=== PATIENT | male | born 1955 | race Caucasian/White ===

== ENCOUNTER 2017-06-05 16:45 | Observation (INO) | payer MEDICAID, OTHER ==
[2017-06-05] MEDS ORDERED: diphenhydrAMINE 50 MG/ML 1 ML VIAL IVP STA (17:02)
[2017-06-05] MEDS ORDERED: KETOROLAC 30 MG/ML 1 ML VIAL IVP STA (17:02)
[2017-06-05] MEDS ORDERED: METOCLOPRAMIDE 5 MG/ML 2 ML VIAL IVP STA (17:02)
[2017-06-05] MEDS ORDERED: SODIUM CHLORIDE 0.9% 1,000 ML IV STA (17:02)
[2017-06-05] MEDS ORDERED: MORPHINE SULFATE 4MG/4ML SYRG IV STA (17:02)
--- NOTE | 2017-06-05 17:05 | ED ---
General Adult HPI - General Chief complaint: Chest Pain Stated complaint: chest pain Time Seen by Provider: 06/05/17 16:52 Source: patient, RN notes reviewed Mode of arrival: ambulatory Limitations: no limitations - History of Present Illness Initial comments: 61-year-old male presents for evaluation of chest pain, and headache. Patient states he's had a headache since he had his upper teeth extracted on Tuesday of this past week which is 5 days ago. Headache is both below and above his eyes. As throbbing in nature. He does have history of migraine headache. He has been taking Motrin and Weott with only some relief. Chest pain began prior to dental procedure, he's had this sharp intermittent left-sided chest pain associated with dyspnea. Patient states that he has seen his primary care physician regarding his episodes of sharp chest pain. This evening the patient developed squeezing chest pressure which was associated with diaphoresis. Patient has had several episodes of nausea and vomiting since his tooth extraction but this does not correspond in time with his chest pain. No abdominal pain. No diarrhea. Past medical history of hypertension. No lower extremity swelling or pain. - Related Data Allergies Allergy/AdvReac Type Severity Reaction Status Date / Time tetracycline Allergy Unknown Verified 06/05/17 16:51 Review of Systems ROS Statement: Those systems with pertinent positive or pertinent negative responses have been documented in the HPI. ROS Other: All systems not noted in ROS Statement are negative. Past Medical History Past Medical History: GERD/Reflux, Hypertension History of Any Multi-Drug Resistant Organisms: None Reported Past Surgical History: Tonsillectomy Additional Past Surgical History / Comment(s): oral surgery Past Psychological History: No Psychological Hx Reported Smoking Status: Former smoker Past Alcohol Use History: None Reported Past Drug Use History: Marijuana General Exam Limitations: no limitations General appearance: alert, in no apparent distress Head exam: Present: atraumatic, normocephalic Eye exam: Present: normal appearance, PERRL ENT exam: Present: other (Complete upper dental extractions, appear to be healing appropriately) Respiratory exam: Present: normal lung sounds bilaterally. Absent: respiratory distress, wheezes, chest wall tenderness Cardiovascular Exam: Present: normal rhythm, tachycardia GI/Abdominal exam: Present: soft. Absent: distended, tenderness Extremities exam: Present: normal inspection, normal capillary refill. Absent: pedal edema Back exam: Present: normal inspection, full ROM Neurological exam: Present: alert, oriented X3, CN II-XII intact. Absent: motor sensory deficit Psychiatric exam: Present: normal affect, normal mood Skin exam: Present: warm, dry, intact. Absent: cyanosis, diaphoretic Course Vital Signs 06/05/17 06/05/17 16:46 18:43 Temperature 97.5 F L Pulse Rate 119 H 88 Respiratory 20 18 Rate Blood Pressure 154/91 134/89 O2 Sat by Pulse 97 96 Oximetry EKG Findings - EKG Comments: EKG Findings:: EKG, sinus tachycardia, no ST segment elevation or depression. Ventricular rate of 107, MO interval 150, QRS duration 78, QTC 421. Medical Decision Making - Medical Decision Making 62-year-old male presenting with chief complaint of chest pain and headache. Although patient does have a headache he is much more concerned about his chest pain. States he's been having episodes of sharp chest pain for several weeks. This evening he developed a squeezing chest pressure associated with diaphoresis. This is what prompted his ER visit. EKG has nonspecific T-wave abnormality, no ST segment elevation or depression. Workup including CBC, CMP and d-dimer and troponin is negative. Patient does have significant risk factors including hypertension and tobacco use. Patient will be placed in observation for serial cardiac enzymes and cardiology evaluation. - Lab Data Result diagrams: 06/05/17 17:06 06/05/17 17:06 Lab Results 06/05/17 06/05/17 06/05/17 Range/Units 17:06 17:06 17:06 WBC 9.9 (3.8-10.6) k/uL RBC 5.48 (4.30-5.90) m/uL Hgb 15.3 (13.0-17.5) gm/dL Hct 44.8 (39.0-53.0) % MCV 81.8 (80.0-100.0) fL MCH 28.0 (25.0-35.0) pg MCHC 34.2 (31.0-37.0) g/dL RDW 13.4 (11.5-15.5) % Plt Count 354 (150-450) k/uL Neutrophils % 77 % Lymphocytes % 15 % Monocytes % 6 % Eosinophils % 0 % Basophils % 0 % Neutrophils # 7.6 (1.3-7.7) k/uL Lymphocytes # 1.5 (1.0-4.8) k/uL Monocytes # 0.6 (0-1.0) k/uL Eosinophils # 0.0 (0-0.7) k/uL Basophils # 0.0 (0-0.2) k/uL PT (9.0-12.0) sec INR (<1.2) APTT (22.0-30.0) sec D-Dimer (<0.60) mg/L FEU Sodium 143 (137-145) mmol/L Potassium 4.0 (3.5-5.1) mmol/L Chloride 100 (98-107) mmol/L Carbon Dioxide 26 (22-30) mmol/L Anion Gap 17 mmol/L BUN 10 (9-20) mg/dL Creatinine 0.70 (0.66-1.25) mg/dL Est GFR (CKD-EPI)AfAm >90 (>60 ml/min/1.73 sqM) Est GFR (CKD-EPI)NonAf >90 (>60 ml/min/1.73 sqM) Glucose 121 H (74-99) mg/dL Plasma Lactic Acid Dilip (0.7-2.0) mmol/L Calcium 10.8 H (8.4-10.2) mg/dL Magnesium 2.1 (1.6-2.3) mg/dL Total Bilirubin 0.7 (0.2-1.3) mg/dL AST 23 (17-59) U/L ALT 37 (21-72) U/L Alkaline Phosphatase 79 (38-126) U/L Total Creatine Kinase 46 L (55-170) U/L CK-MB (CK-2) 0.5 (0.0-2.4) ng/mL CK-MB (CK-2) Rel Index 1.1 Troponin I <0.012 (0.000-0.034) ng/mL NT-Pro-B Natriuret Pep pg/mL Total Protein 8.4 H (6.3-8.2) g/dL Albumin 4.7 (3.5-5.0) g/dL 06/05/17 06/05/17 06/05/17 Range/Units 17:06 17:06 17:06 WBC (3.8-10.6) k/uL RBC (4.30-5.90) m/uL Hgb (13.0-17.5) gm/dL Hct (39.0-53.0) % MCV (80.0-100.0) fL MCH (25.0-35.0) pg MCHC (31.0-37.0) g/dL RDW (11.5-15.5) % Plt Count (150-450) k/uL Neutrophils % % Lymphocytes % % Monocytes % % Eosinophils % % Basophils % % Neutrophils # (1.3-7.7) k/uL Lymphocytes # (1.0-4.8) k/uL Monocytes # (0-1.0) k/uL Eosinophils # (0-0.7) k/uL Basophils # (0-0.2) k/uL PT 9.8 (9.0-12.0) sec INR 1.0 (<1.2) APTT 23.5 (22.0-30.0) sec D-Dimer 0.49 (<0.60) mg/L FEU Sodium (137-145) mmol/L Potassium (3.5-5.1) mmol/L Chloride (98-107) mmol/L Carbon Dioxide (22-30) mmol/L Anion Gap mmol/L BUN (9-20) mg/dL Creatinine (0.66-1.25) mg/dL Est GFR (CKD-EPI)AfAm (>60 ml/min/1.73 sqM) Est GFR (CKD-EPI)NonAf (>60 ml/min/1.73 sqM) Glucose (74-99) mg/dL Plasma Lactic Acid Dilip 1.0 (0.7-2.0) mmol/L Calcium (8.4-10.2) mg/dL Magnesium (1.6-2.3) mg/dL Total Bilirubin (0.2-1.3) mg/dL AST (17-59) U/L ALT (21-72) U/L Alkaline Phosphatase (38-126) U/L Total Creatine Kinase (55-170) U/L CK-MB (CK-2) (0.0-2.4) ng/mL CK-MB (CK-2) Rel Index Troponin I (0.000-0.034) ng/mL NT-Pro-B Natriuret Pep 32 pg/mL Total Protein (6.3-8.2) g/dL Albumin (3.5-5.0) g/dL Disposition Clinical Impression: Chest pain Disposition: ADMITTED IP TO THIS [facility] Condition: Stable Referrals: Sheyla Mendenhall MD [Primary Care Provider] - 1-2 days Decision to Admit Reason: Admit from EC Decision Date: 06/05/17 Decision Time: 19:00
[2017-06-05 17:27] LABS: RBC 5.48 m/uL (4.30-5.90); WBC 9.9 k/uL (3.8-10.6)
[2017-06-05 17:28] LABS: Basophils % (A) 0 %; Eosinophils % (A) 0 %; HCT 44.8 % (39.0-53.0); HGB 15.3 gm/dL (13.0-17.5); Lymphocytes # (A) 1.5 k/uL (1.0-4.8); Lymphocytes % (A) 15 %; MCHC 34.2 g/dL (31.0-37.0); MCV 81.8 fL (80.0-100.0); Mean Platelet Volume 6.9; Monocytes # (A) 0.6 k/uL (0-1.0); Monocytes % (A) 6 %; Neutrophils # (A) 7.6 k/uL (1.3-7.7); Neutrophils % (A) 77 %; Platelet Count 354 k/uL (150-450); RDW 13.4 % (11.5-15.5)
[2017-06-05 17:37] LABS: ALT 37 U/L (21-72); AST 23 U/L (17-59); Albumin 4.7 g/dL (3.5-5.0); Alkaline Phosphatase 79 U/L (38-126); Anion Gap 17 mmol/L; Blood Urea Nitrogen 10 mg/dL (9-20); Calcium 10.8 mg/dL (8.4-10.2); Carbon Dioxide 26 mmol/L (22-30); Chloride 100 mmol/L (98-107); Glucose 121 mg/dL (74-99); Magnesium 2.1 mg/dL (1.6-2.3); Sodium 143 mmol/L (137-145); Total Bilirubin 0.7 mg/dL (0.2-1.3); Total Protein 8.4 g/dL (6.3-8.2)
[2017-06-05 17:41] LABS: D-Dimer 0.49 mg/L FEU (<0.60); Prothrombin Time 9.8 sec (9.0-12.0)
[2017-06-05 17:42] LABS: Partial Thromboplastin Time 23.5 sec (22.0-30.0)
[2017-06-05 17:47] LABS: Creatine Kinase 46 U/L (55-170)
--- NOTE | 2017-06-05 17:52 | XR ---
EXAMINATION TYPE: XR chest 2V DATE OF EXAM: 06/05/2017 COMPARISON: NONE INDICATION: Chest pain TECHNIQUE: Frontal and lateral views of the chest are obtained. FINDINGS: The heart size is normal. The pulmonary vasculature is normal. The lungs are clear. IMPRESSION: 1. No acute pulmonary process.
[2017-06-05 18:00] LABS: Creatine Kinase MB 0.5 ng/mL (0.0-2.4); Troponin I <0.012 ng/mL (0.000-0.034)
[2017-06-05] MEDS ORDERED: NALOXONE 0.4 MG/ML 1 ML VIAL IV PRN (18:54)
[2017-06-05] MEDS ORDERED: ONDANSETRON 4 MG/2 ML VIAL IVP PRN (18:54)
[2017-06-05] MEDS ORDERED: ASPIRIN 325 MG TAB PO STA (18:56)
[2017-06-05] MEDS ORDERED: NITROGLYCERIN SL TABS 0.4 MG TAB SUBLINGUAL PRN (18:57)
[2017-06-05] MEDS: SODIUM CHLORIDE 0.9% 1,000 ML IV SCH (19:22)
[2017-06-05] MEDS: amLODIPine 10 MG TAB PO SCH (20:28)
[2017-06-05] MEDS: MORPHINE SULFATE 4MG/4ML SYRG IV PRN (20:35)
[2017-06-05 21:39] VITALS: BMI 25.8
[2017-06-06 00:32] LABS: Creatine Kinase 38 U/L (55-170)
[2017-06-06 00:46] LABS: Creatine Kinase MB 0.5 ng/mL (0.0-2.4); Troponin I <0.012 ng/mL (0.000-0.034)
[2017-06-06] MEDS: MORPHINE SULFATE 4MG/4ML SYRG IV PRN ×2 (03:11→07:12)
[2017-06-06] MEDS ORDERED: BUTALB/APAP/CAFF 50-325-40MG TAB PO PRN (04:56)
--- NOTE | 2017-06-06 06:30 | CT ---
EXAM: CT Head Without Intravenous Contrast CLINICAL HISTORY: CT Reason: headache TECHNIQUE: Axial computed tomography images of the head/brain without intravenous contrast. CTDI is 57.40 mGy and DLP is 1116 mGy-cm. This CT exam was performed using one or more of the following dose reduction techniques: automated exposure control, adjustment of the mA and/or kV according to patient size, and/or use of iterative reconstruction technique. COMPARISON: No relevant prior studies available. FINDINGS: Brain: Mild cerebral atrophy noted. No hemorrhage. No significant white matter disease. Ventricles: Unremarkable. No ventriculomegaly. Bones/joints: Unremarkable. No acute fracture. Soft tissues: Unremarkable. Sinuses: A retention cyst or polyp is seen involving the inferior right maxillary sinus. Mastoid air cells: Unremarkable as visualized. No mastoid effusion. IMPRESSION: No acute intracranial process identified.
[2017-06-06 06:40] LABS: Creatine Kinase 40 U/L (55-170)
[2017-06-06 06:53] LABS: Creatine Kinase MB 0.7 ng/mL (0.0-2.4); Troponin I <0.012 ng/mL (0.000-0.034)
[2017-06-06] MEDS ORDERED: amLODIPine 10 MG TAB PO SCH (09:00)
[2017-06-06] MEDS ORDERED: ASPIRIN 325 MG TAB PO SCH (09:00)
[2017-06-06 09:40] LABS: Cholesterol 200 mg/dL (<200); HDL Cholesterol 35 mg/dL (40-60); LDL Cholesterol,Calculated 145 mg/dL (0-99); Triglycerides 102 mg/dL (<150)
[2017-06-06] MEDS ORDERED: KETOROLAC 30 MG/ML 1 ML VIAL IVP STA (09:45)
[2017-06-06] MEDS ORDERED: METOCLOPRAMIDE 5 MG/ML 2 ML VIAL IVP STA (09:46)
[2017-06-06] MEDS ORDERED: diphenhydrAMINE 50 MG/ML 1 ML VIAL IVP ONE (09:47)
[2017-06-06] MEDS: amLODIPine 10 MG TAB PO SCH (11:45)
[2017-06-06] MEDS: ASPIRIN 81 MG PO SCH (11:45)
--- NOTE | 2017-06-06 12:11 | P.CRDCN ---
History of Present Illness Consult date: 06/06/17 History of present illness: Mr. Ash is a pleasant 62-year-old male past medical history significant for gastroesophageal reflux disease, hypertension, regular marijuana use and former cigar smoker. He quit 3 months ago. He denies history of coronary artery disease and has never seen a anodize machine operator for any reason. We have been asked to see him in consultation for complaints of chest pain. This all started 3-weeks ago. He went to his PCP with a tight sensation in the left precordial regions and was diagnosed with new onset hypertension with GERD and was started on amlodipine and omeprazole. At that time he denies associated symptoms of shortness of breath, dizziness, palpitations, nausea, vomiting or diaphoresis and had no radiation of the pain. He states he went back multiple times to recheck his blood pressure and it seemed to be under control. He had no reoccurrence of the chest pain either. Last week Tuesday he underwent 13 teeth extractions at an oral surgeon's office. In his recovery he was having frequent headaches and again started feeling a heavy pressure sensation in his chest similar to how he felt prior to starting amlodipine. The pain was intermittent in nature not associated with exertion came on mostly at rest and again he had no associated symptoms or radiation of the pain. However, Tuesday evening he started feeling heavy sensation in his chest again and became extremely diaphoretic with numbness and tingling down the left arm. He denies associated shortness of breath, palpitations, dizziness, nausea or vomiting. These symptoms persisted until he arrived in the ED and received medication to relieve his ongoing headache which included reglan, toradol and benadryl. The medications also relieved his chest pain. He has had no further symptoms of chest pain since admission and telemetry tracings have been unremarkable. EKG on arrival reveals sinus mechanism with non-specific T-wave abnormalities. There is no old for comparison. Chest xray is negative for an acute cardiopulmonary process. Laboratory data reviewed, hemoglobin 15.3, platelets 354, d-dimer 0.49, potassium 4.0, magnesium 2.1, creatinine 0.7, cardiac enzymes negative 3 , LDL 145, HDL 35, total cholesterol 200. Current cardiac medications include amlodipine 10 mg daily. Review of Systems At the time of my exam: CONSTITUTIONAL: Denies fever. Denies chills. EYES: Denies blurred vision. Denies vision changes. Denies eye pain. EARS, NOSE, MOUTH & THROAT: Complains of headache. Denies sore throat. Denies ear pain. Complains of mouth pain secondary to tooth extraction. CARDIOVASCULAR: Denies chest pain. Denies shortness of breath. Denies orthopnea. Denies PND. Denies palpitations. RESPIRATORY: Denies cough. GASTROINTESTINAL: Denies abdominal pain. Denies diarrhea. Denies constipation. Denies nausea. Denies vomiting. MUSCULOSKELETAL: Denies myalgias. INTEGUMENTARY: Denies pruitis. Denies rash. NEUROLOGIC: Denies numbness. Denies tingling. Denies weakness. PSYCHIATRIC: Denies anxiety. Denies depression. ENDOCRINE: Denies fatigue. Denies weight change. Denies polydipsia. Denies polyurina. GENITOURINARY: Denies burning, hematuria or urgency with micturation. HEMATOLOGIC: Denies history of anemia. Denies bleeding. Past Medical History Past Medical History: GERD/Reflux, Hypertension Additional Past Medical History / Comment(s): kidney disease History of Any Multi-Drug Resistant Organisms: None Reported Past Surgical History: Tonsillectomy Additional Past Surgical History / Comment(s): oral surgery Past Anesthesia/Blood Transfusion Reactions: No Reported Reaction Smoking Status: Former smoker - Past Family History Father Family Medical History: Unable to Obtain Mother Additional Family Medical History / Comment(s): Cerebral Palsey Medications and Allergies Home Medications Medication Instructions Recorded Confirmed Type Ibuprofen [Motrin] 600 mg PO Q6HR 06/05/17 06/06/17 History Methocarbamol [Robaxin-750] 750 - 1,500 mg PO TID PRN 06/05/17 06/06/17 History Omeprazole [PriLOSEC] 20 mg PO AC-BID 06/05/17 06/06/17 History amLODIPine BESYLATE [Norvasc] 10 mg PO HS 06/05/17 06/06/17 History Aspirin/Acetaminophen/Caffeine 1 - 2 tab PO DAILY PRN 06/06/17 06/06/17 History [Excedrin Migraine Caplet] Allergies Allergy/AdvReac Type Severity Reaction Status Date / Time tetracycline Allergy Unknown Verified 06/06/17 08:23 hydrocodone [From [place]] AdvReac Nausea & Verified 06/06/17 08:23 Vomiting Physical Exam Vitals: Vital Signs Temp Pulse Pulse Resp BP BP Pulse Ox 06/06/17 07:43 98.3 F 78 18 135/86 94 L 06/06/17 03:36 97.9 F 87 18 149/95 95 06/05/17 23:31 18 06/05/17 23:29 98.8 F 87 18 132/84 93 L 06/05/17 20:00 98.1 F 84 18 139/92 95 06/05/17 19:25 97.9 F 90 16 128/95 96 06/05/17 18:43 88 18 134/89 96 06/05/17 16:46 97.5 F L 119 H 20 154/91 97 Intake and Output 06/05/17 06/06/17 06/06/17 22:59 06:59 14:59 Other: # Voids 1 1 Weight 77.1 kg Blood pressure 135/86 heart rate 78 afebrile maintaining oxygen saturation on room air GENERAL: This is a 62-year-old male in no apparent distress at the time of my examination. HEENT: Head is atraumatic, normocephalic. Pupils are equal, round. Sclerae anicteric. Conjunctivae are clear. Mucous membranes of the mouth are moist. Neck is supple. There is no jugular venous distention. No carotid bruit is heard. LUNGS: Clear to auscultation no wheezes, rales or rhonchi. No chest wall tenderness is noted on palpation or with deep breathing. HEART: Regular rate and rhythm without murmurs, rubs or gallops. S1 and S2 heard. ABDOMEN: Soft, nontender. Bowel sounds are heard. No organomegaly noted. EXTREMITIES: No evidence of peripheral edema and no calf tenderness noted. VASCULAR: Radial and dorsalis pedis pulses palpated, no evidence of clubbing. NEUROLOGIC: Patient is awake, alert and oriented x3. Results 06/05/17 17:06 06/05/17 17:06 Cardiac Enzymes 06/05/17 06/05/17 06/05/17 Range/Units 17:06 17:06 23:22 AST 23 (17-59) U/L CK-MB (CK-2) 0.5 0.5 (0.0-2.4) ng/mL Troponin I <0.012 <0.012 (0.000-0.034) ng/mL 06/06/17 Range/Units 05:26 AST (17-59) U/L CK-MB (CK-2) 0.7 (0.0-2.4) ng/mL Troponin I <0.012 (0.000-0.034) ng/mL Coagulation 06/05/17 Range/Units 17:06 PT 9.8 (9.0-12.0) sec APTT 23.5 (22.0-30.0) sec CBC 06/05/17 Range/Units 17:06 WBC 9.9 (3.8-10.6) k/uL RBC 5.48 (4.30-5.90) m/uL Hgb 15.3 (13.0-17.5) gm/dL Hct 44.8 (39.0-53.0) % Plt Count 354 (150-450) k/uL Comprehensive Metabolic Panel 06/05/17 Range/Units 17:06 Sodium 143 (137-145) mmol/L Potassium 4.0 (3.5-5.1) mmol/L Chloride 100 (98-107) mmol/L Carbon Dioxide 26 (22-30) mmol/L BUN 10 (9-20) mg/dL Creatinine 0.70 (0.66-1.25) mg/dL Glucose 121 H (74-99) mg/dL Calcium 10.8 H (8.4-10.2) mg/dL AST 23 (17-59) U/L ALT 37 (21-72) U/L Alkaline Phosphatase 79 (38-126) U/L Total Protein 8.4 H (6.3-8.2) g/dL Albumin 4.7 (3.5-5.0) g/dL Current Medications Generic Name Dose Route Start Last Admin Trade Name Freq PRN Reason Stop Dose Admin Acetaminophen/Butalbital/Caffeine 1 each 06/06/17 04:56 06/06/17 05:05 Fioricet 50-325-40 PO 1 each Q4HR PRN Administration Headache Amlodipine Besylate 10 mg 06/05/17 21:00 06/05/17 20:28 Norvasc PO 10 mg DAILY MARIA T Administration Aspirin 81 mg 06/06/17 09:00 Aspirin PO DAILY MARIA T Sodium Chloride 1,000 mls @ 20 mls/hr 06/05/17 19:00 06/05/17 19:22 Saline 0.9% IV 20 mls/hr .Q24H MARIA T Administration Morphine Sulfate 4 mg 06/05/17 18:54 06/06/17 07:12 Morphine Sulfate (Inj) IV 4 mg Q4HR PRN Administration Severe Pain Naloxone HCl 0.2 mg 06/05/17 18:54 Narcan IV Q2M PRN Opioid Reversal Nitroglycerin 0.4 mg 06/05/17 18:57 Nitrostat SUBLINGUAL Q5M PRN Chest Pain Ondansetron HCl 4 mg 06/05/17 18:54 06/06/17 05:05 Zofran IVP 4 mg Q8HR PRN Administration Nausea And Vomiting Intake and Output 06/05/17 06/06/17 06/06/17 22:59 06:59 14:59 Other: # Voids 1 1 Weight 77.1 kg 06/05/17 17:06 06/05/17 17:06 Assessment and Plan Assessment: ASSESSMENT 1. Chest pain, atypical. An acute coronary event has been ruled out with negative cardiac enzymes and no acute EKG changes indicative of ischemia. 2. Hypertension 3. Recent history of tobacco use, quit 3 months ago 4. Regular marijuana use 5. Dyslipidemia, new diagnosis. ASCVD risk of 22.5% PLAN Obtain 2D echocardigram and doppler study to assess cardiac structure and function. Perform stress echocadriogram to assess for stress induced cardiac ischemia. Initiate on aspirin 81 mg daily and atorvastatin 40 mg daily. Further recommendations to follow based upon stress test findings. If normal he is stable from a cardiac perspective. Thank you kindly for this consultation. Nurse Practitioner note has been reviewed, I agree with a documented findings and plan of care. Patient was seen and examined.
[2017-06-06] MEDS ORDERED: MORPHINE ORAL SOLN 10 MG/5 ML CUP PO PRN (13:40)
[2017-06-06] MEDS ORDERED: KETOROLAC 30 MG/ML 1 ML VIAL IVP PRN (14:25)
--- NOTE | 2017-06-06 14:28 | P.HPIM ---
History of Present Illness H&P Date: 06/06/17 Chief Complaint: Chest pain and headache This is a 62-year-old male, patient of Dr. Mendenhall. He has a known past medical history of hypertension, headaches, acid reflux and former cigar smoker and regular marijuana use. He recently had 13 teeth pulled this past Tuesday. He reports that even before he had his teeth pulled he had been having episodes of chest pain. The chest pain has been intermittent for the past 2 weeks. He went to see his family doctor and was told that his EKG was fine and that he can proceed with his dental work. Tuesday he had his teeth pulled. Then the chest pains started again. Yesterday patient started to have severe left-sided chest pain that moved into the left shoulder. The arm became tingly and he had cold sweats. He became concerned in regards to this chest pain and even during this time he was complaining of severe headaches where his eyes felt like they would pop out. He also had pressure in the front of his head. He came to the emergency room for further evaluation in regards to this chest pain. Troponins were negative 3 sets. EKG showed sinus tachycardia with a heart rate of 107 and nonspecific T-wave abnormality. D-dimer was negative. Cardiology consulted they ordered a stress echo and those results are pending. He also had computed tomography scan of the brain which was negative. Patient had been on antibiotics prior to his dental procedure. Been now he is remained off antibiotics. He does have some swelling of the gums no pus or abscess noted. But he does have tenderness with palpation of the upper lip and gum area. Patient denies any vision changes. He does admit to some nausea but no vomiting. No fever reported. Denies any cough. Denies any bowel movement changes or urinary symptoms. No history of heart attacks. And no previous stress test or heart catheterization's. Patient also reported a couple minutes syncopal episode yesterday when he was having these headaches and chest pain. Review of Systems Please refer to HPI otherwise unremarkable Past Medical History Past Medical History: GERD/Reflux, Hypertension Additional Past Medical History / Comment(s): kidney disease History of Any Multi-Drug Resistant Organisms: None Reported Past Surgical History: Tonsillectomy Additional Past Surgical History / Comment(s): oral surgery Past Anesthesia/Blood Transfusion Reactions: No Reported Reaction Smoking Status: Former smoker - Past Family History Father Family Medical History: Unable to Obtain Mother Additional Family Medical History / Comment(s): Cerebral Palsey Medications and Allergies Home Medications Medication Instructions Recorded Confirmed Type Ibuprofen [Motrin] 600 mg PO Q6HR 06/05/17 06/06/17 History Methocarbamol [Robaxin-750] 750 - 1,500 mg PO TID PRN 06/05/17 06/06/17 History Omeprazole [PriLOSEC] 20 mg PO AC-BID 06/05/17 06/06/17 History amLODIPine BESYLATE [Norvasc] 10 mg PO HS 06/05/17 06/06/17 History Aspirin/Acetaminophen/Caffeine 1 - 2 tab PO DAILY PRN 06/06/17 06/06/17 History [Excedrin Migraine Caplet] Allergies Allergy/AdvReac Type Severity Reaction Status Date / Time tetracycline Allergy Unknown Verified 06/06/17 08:23 hydrocodone [From [place]] AdvReac Nausea & Verified 06/06/17 08:23 Vomiting Physical Exam Vitals: Vital Signs Temp Pulse Pulse Resp BP BP Pulse Ox 06/06/17 11:51 98.0 F 98 18 131/90 96 06/06/17 07:43 98.3 F 78 18 135/86 94 L 06/06/17 03:36 97.9 F 87 18 149/95 95 06/05/17 23:31 18 06/05/17 23:29 98.8 F 87 18 132/84 93 L 06/05/17 20:00 98.1 F 84 18 139/92 95 06/05/17 19:25 97.9 F 90 16 128/95 96 06/05/17 18:43 88 18 134/89 96 06/05/17 16:46 97.5 F L 119 H 20 154/91 97 Intake and Output 06/05/17 06/06/17 06/06/17 22:59 06:59 14:59 Intake Total 340 Balance 340 Intake: Oral 240 Other 100 Other: Voiding Method Toilet # Voids 1 1 Weight 77.1 kg Mouth: Patient's upper gums are all swollen. Tender with palpation. No drainage or abscess noted. There are sutures in place. Also tenderness with palpation of the upper lip. And into the cheeks and sinus area. Head normocephalic Neck supple Lungs clear to auscultation bilaterally no wheezing or crackles Heart regular rate and rhythm S1-S2, no rub or gallop Abdomen is soft nontender nondistended positive bowel sounds no hepatosplenomegaly Extremities no edema Neuro alert and orientated to 3 Results CBC & Chem 7: 06/05/17 17:06 06/05/17 17:06 Labs: Abnormal Lab Results - Last 24 Hours (Table) 06/05/17 06/05/17 06/05/17 Range/Units 17:06 17:06 23:22 Glucose 121 H (74-99) mg/dL Calcium 10.8 H (8.4-10.2) mg/dL Total Creatine Kinase 46 L 38 L (55-170) U/L Total Protein 8.4 H (6.3-8.2) g/dL Cholesterol (<200) mg/dL LDL Cholesterol, Calc (0-99) mg/dL HDL Cholesterol (40-60) mg/dL 06/06/17 06/06/17 Range/Units 05:26 05:26 Glucose (74-99) mg/dL Calcium (8.4-10.2) mg/dL Total Creatine Kinase 40 L (55-170) U/L Total Protein (6.3-8.2) g/dL Cholesterol 200 H (<200) mg/dL LDL Cholesterol, Calc 145 H (0-99) mg/dL HDL Cholesterol 35 L (40-60) mg/dL Thrombosis Risk Factor Assmnt - Choose All That Apply Each Risk Factor Represents 2 Points: Age 61-74 years Thrombosis Risk Factor Assessment Total Risk Factor Score: 2 Thrombosis Risk Factor Assessment Level: Low Risk Assessment and Plan Assessment: 1. Chest pain: Acute coronary syndrome ruled out. Troponins negative 3 sets. EKG showing sinus tachycardia with a heart rate of 107. D-dimer negative. Patient seen by cardiology. Stress echo pending. Cardiology did add a baby aspirin and Lipitor. LDL 145 HDL 35 2. Headaches with nausea and photophobia. Possible migraine headache. Computed tomography scan of the brain negative. Neurology consulted. Also headaches could be related to his recent dental procedure. Place patient on Toradol 3. Gingivitis with 13 teeth removed. Start Rocephin 4. Syncopal episode: Neurology and cardiology following. Awaiting echo results also will check a carotid Doppler 5. Essential hypertension 6. Acid reflux 7. History of headaches GI prophylaxis Protonix and DVT prophylaxis subcu heparin Time with Patient: Greater than 30 (Greater than 50% of the total time spent in counseling and coordination of care. I performed an examination of the patient and discussed their management with the physician Mental Health Therapist. I have reviewed the Physician Mental Health Therapist's notes and agree with the documented findings and plan of care)
--- NOTE | 2017-06-06 15:23 | US ---
EXAMINATION TYPE: US carotid duplex BILAT DATE OF EXAM: 06/06/2017 COMPARISON: NONE CLINICAL HISTORY: syncope. Pt states extreme headaches EXAM MEASUREMENTS: RIGHT: Peak Systolic Velocity (PSV) cm/sec ----- Right CCA: 81.1 ----- Right ICA: 87.7 ----- Right ECA: 105.7 ICA/CCA ratio: 1.1 RIGHT: End Diastole cm/sec ----- Right CCA: 27.1 ----- Right ICA: 37.0 ----- Right ECA: 26.7 LEFT: Peak Systolic Velocity (PSV) cm/sec ----- Left CCA: 93.2 ----- Left ICA: 79.1 ----- Left ECA: 82.2 ICA/CCA ratio: 0.8 LEFT: End Diastole cm/sec ----- Left CCA: 28.2 ----- Left ICA: 28.5 ----- Left ECA: 19.4 VERTEBRALS (direction of flow): Right Vertebral: Antegrade Left Vertebral: Antegrade Rhythm: Normal IMPRESSION: No significant stenosis seen Criteria for Assigning % of Stenosis / Diameter reduction (Estimation based on the indirect measurements of the internal carotid artery velocities (ICA PSV). 1. Normal (no stenosis)=ICA PSV < 125 cm/s: ratio < 2.0: ICA EDV<40 cm/s. 2. Less than 50% stenosis=ICA PSV < 125 cm/s: ratio < 2.0: ICA EDV<40 cm/s. 3. 50 to 69% stenosis=ICA PSV of 125 to 230 cm/s: ration 2.0 ? 4.0: ICA EDV 40-100 cm/s. 4. Greater than 70% stenosis to near occlusion= ICA PSV > 230 cm/s: ratio > 4.0: ICA EDV > 100 cm/s. 5. Near occlusion= ICA PSV velocities may be low or undetectable: variable ratio and ICA EDV. 6. Total occlusion=unable to detect flow.
[2017-06-06] MEDS: ATORVASTATIN 40 MG TAB PO SCH (15:27)
[2017-06-06] MEDS: cefTRIAXone IN SWFI 1,000 MG/10 ML SYRINGE IVP SCH (15:29)
--- NOTE | 2017-06-06 16:51 | ECHOS ---
STRESS ECHOCARDIOGRAM INDICATIONS: Chest pain. History of chest discomfort. MEDICATIONS: BASELINE HEART RATE: 103 BASELINE BLOOD PRESSURE: 153/69 MAXIMUM HEART RATE: 142 MAXIMUM BLOOD PRESSURE: 157/78 85% MPHR: 133 100% MPHR: 157 METS: 8.5 MAXIMUM STAGE REACHED: 3 TOTAL EXERCISE TIME: 7:00 CLINICAL INFORMATION: Baseline heart rate 103 beats per minute. Baseline blood pressure 153/69 mmHg. Baseline 12-lead ECG showed normal sinus rhythm with nonspecific ST-T abnormalities. The patient exercised on Gokul protocol for 7 minutes, achieving a peak heart rate of 142 beats per minute. Normal blood pressure response to exercise. There was no ECG evidence for ischemia. No exercise-induced arrhythmias. The baseline 2D echo images showed normal LV size and systolic function without segmental wall motion abnormalities. At peak exercise, there was excellent augmentation of overall LV contractility without development of any wall motion abnormalities. At recovery, patient's global LV systolic function remained normal. IMPRESSION: No ECG or echocardiographic evidence for ischemia. MMODL / IJN: [id number] /
[2017-06-06] MEDS: PANTOPRAZOLE 40 MG TABLET PO SCH (17:40)
--- NOTE | 2017-06-06 18:41 | ECHOF ---
Referral Reason: MEASUREMENTS -------- HEIGHT: 172.7 cm WEIGHT: 76.7 kg BP: 135/86 IVSd: 1.1 cm (0.6 - 1.1) LVIDd: 4.8 cm (3.9 - 5.3) LVPWd: 1.0 cm (0.6 - 1.1) IVSs: 1.4 cm LVIDs: 3.6 cm LVPWs: 1.4 cm RVIDd: 2.8 cm (< 3.3) LAESV Index (A-L): 14.82 ml/m Ao Diam: 3.2 cm (2.0 - 3.7) LA Diam: 2.2 cm (2.7 - 3.8) AV Cusp: 2.1 cm (1.5 - 2.6) EPSS: 0.7 cm MV E Oscar: 0.62 m/s MV DecT: 348 ms MV A Oscar: 1.02 m/s MV E/A Ratio: 0.60 RAP: 5.00 mmHg RVSP: 25.71 mmHg MV EF SLOPE: 67.07 mm/s (70 - 150) MV EXCURSION: 1.14 cm (> 18.000) FINDINGS -------- Sinus rhythm. This was a technically adequate study. The left ventricular size is normal. There is borderline concentric left ventricular hypertrophy. Overall left ventricular systolic function is normal with, an EF between 55 - 60 %. The right ventricle is normal in size and function. Normal LA size by volume 22+/-6 ml/m2. The right atrium is normal in size. Aortic valve is trileaflet and is mildly thickened. There is no evidence of aortic regurgitation. There is no evidence of aortic stenosis. The mitral valve leaflets are mildly thickened. Mild mitral regurgitation is present. Trace tricuspid regurgitation present. Right ventricular systolic pressure is normal at < 35 mmHg. There is no evidence of pulmonary hypertension. Trace/mild (physiologic) pulmonic regurgitation. The aortic root size is normal. Normal inferior vena cava with normal inspiratory collapse consistent with estimated right atrial pre ssure of 5 mmHg. There is no pericardial effusion. CONCLUSIONS -------- 1. Sinus rhythm. 2. This was a technically adequate study. 3. The left ventricular size is normal. 4. There is borderline concentric left ventricular hypertrophy. 5. Overall left ventricular systolic function is normal with, an EF between 55 - 60 %. 6. Normal LA size by volume 22+/-6 ml/m2. 7. Aortic valve is trileaflet and is mildly thickened. 8. The mitral valve leaflets are mildly thickened. 9. Mild mitral regurgitation is present. 10. Trace tricuspid regurgitation present. 11. Right ventricular systolic pressure is normal at < 35 mmHg. 12. There is no evidence of pulmonary hypertension. 13. Trace/mild (physiologic) pulmonic regurgitation. 14. The aortic root size is normal. 15. There is no pericardial effusion. APPLICATION INTEGRATION ENGINEER: Cayden Ga RDCS
[2017-06-06] MEDS: SODIUM CHLORIDE 0.9% 1,000 ML IV SCH (20:20)
[2017-06-06] MEDS ORDERED: MAGNESIUM SULFATE-D5W PMX 1 GM in DEXTROSE/WATER 1 100ML.BAG IVPB ONE (20:30)
[2017-06-06] MEDS ORDERED: VALPROATE SODIUM 1,000 MG in SODIUM CHLORIDE 0.9% 50 ML IVPB ONE (20:30)
[2017-06-06] MEDS: HEPARIN SODIUM,PORCINE 5,000 UNIT/ML 1 ML VIAL SQ SCH (20:46)
--- NOTE | 2017-06-06 21:12 | CONS ---
CONSULTATION DATE OF CONSULTATION: 06/06/2017. CHIEF COMPLAINT: Headache. HISTORY OF PRESENT ILLNESS: The patient is a pleasant 62-year-old, male, who is being evaluated by the neurology service per the request of Dr. Carrero for an intractable headache. The patient states that he has history of frequent headaches. He started having headaches during his teenage years and they have been progressively getting worse. He states he had a significant workup back in the 1980s which was normal according to him. He has not been worked up for this since then. He states that he has. At least 20 days per month of a headache. The headaches are usually in the right frontal temporal or the left temporoparietal region and are usually described as a pressure and throbbing pain. He started having this current headache approximately 3 days ago and it has not resolved. He usually takes over the counter analgesics for the headaches. At the time of my evaluation, he states that the headache is in the right frontal temporal region and is still throbbing and he rates it at 8/10 in intensity. He denies any nausea or vomiting at this time. But he frequently does have nausea with the headaches. He denies any recent head injuries or fevers. A CT scan of the brain was done, which showed small-vessel ischemic changes and generalized atrophy. His CBC, D-dimer , and cardiac enzymes were negative. His comprehensive metabolic profile was normal except for mild hypercalcemia at 10.8. He was complaining of chest pain earlier and cardiology has been consulted. His cardiac enzymes have been negative. His fasting lipid panel did show dyslipidemia with an LDL of 145. His HDL was low at 35. He was started on Lipitor on this admission. PAST MEDICAL HISTORY: Hypertension, migraines, gastroesophageal reflux disease, history of tonsillectomy, history of recent oral surgery. SOCIAL HISTORY: The patient is a former smoker. He denies any alcohol or drug use. FAMILY HISTORY: Noncontributory. HOME MEDICATIONS: Reviewed in the chart. ALLERGIES: NORCO AND TETRACYCLINES. REVIEW OF SYSTEMS: CONSTITUTIONAL: Negative. EYES: Negative. ENT: Recent oral surgery with multiple tooth extractions. Neck negative. CARDIOVASCULAR: As mentioned above. RESPIRATORY: Negative. NEUROLOGICAL: As mentioned above. He denies any lateralizing numbness or weakness. GASTROINTESTINAL: Positive for occasional heartburn. GENITOURINARY: Negative. PSYCHIATRIC: Negative. ENDOCRINE: Negative. MUSCULOSKELETAL: Negative. DERMATOLOGICAL: Negative. PHYSICAL EXAM: Vital signs show a temperature of 98.2, pulse 79, respiration 18, blood pressure 110/75. GENERAL APPEARANCE: The patient is a well-developed male who appears to be in no acute distress. HEENT: Normocephalic, atraumatic, no facial asymmetry is seen. NECK: Supple with no masses felt. CARDIOVASCULAR: Regular rate and rhythm. ABDOMEN: Nontender, nondistended. Extremities showed no edema or clubbing. Neurological exam: The patient is alert aware and oriented x3. Speech and language are normal. Strength is full in all 4 extremities. Sensory exam was normal to light touch in all 4 extremities. No facial asymmetry is seen on cranial nerve testing. No tremors or seizure-like activity is seen. IMPRESSION: 1. Status migrainosus. 2. Chronic migraines. 3. Dyslipidemia. 4. Atypical chest pain. RECOMMENDATION: The patient has had an intractable migraine for several days consistent with status migrainosus. Had a lengthy discussion with the patient regarding his current workup findings which showed no significant abnormalities. I had a lengthy discussion with the treatment options. I will start him on IV Solu-Medrol 250 mg every 8 hours , Reglan 10 mg q.6 hours around the clock, Mag sulfate 1 g IV, and Depakote 1000 mg IV. I will also start him on oral Depakote 500 mg every 8 hours for headache prophylaxis and he should continue on this after his discharge. I do agree with statin therapy for his dyslipidemia. As for his chest pain, his cardiac enzymes were negative and Cardiology has been consulted. Continue the rest of your current workup and management. I will continue to follow with you. Further recommendations to follow. Thank you for allowing me to participate in the care of your patient. If you have any questions, please feel free to contact me. ELIZABETHL / IJN: [id number] / SHAHZAD
[2017-06-06] MEDS: METOCLOPRAMIDE 5 MG/ML 2 ML VIAL IVP SCH ×2 (21:28→23:47)
[2017-06-07 06:54] LABS: Basophils % (A) 0 %; Eosinophils % (A) 0 %; HGB 13.8 gm/dL (13.0-17.5); Lymphocytes # (A) 0.8 k/uL (1.0-4.8); Lymphocytes % (A) 13 %; MCH 28.1 pg (25.0-35.0); MCHC 33.5 g/dL (31.0-37.0); MCV 83.9 fL (80.0-100.0); Mean Platelet Volume 6.5; Monocytes # (A) 0.1 k/uL (0-1.0); Monocytes % (A) 1 %; Neutrophils # (A) 4.9 k/uL (1.3-7.7); Neutrophils % (A) 85 %; Platelet Count 356 k/uL (150-450); RBC 4.89 m/uL (4.30-5.90); RDW 13.5 % (11.5-15.5); WBC 5.8 k/uL (3.8-10.6)
[2017-06-07 07:30] LABS: ALT 33 U/L (21-72); AST 19 U/L (17-59); Albumin 4.1 g/dL (3.5-5.0); Alkaline Phosphatase 65 U/L (38-126); Anion Gap 16 mmol/L; Blood Urea Nitrogen 20 mg/dL (9-20); Calcium 9.6 mg/dL (8.4-10.2); Carbon Dioxide 23 mmol/L (22-30); Chloride 102 mmol/L (98-107); Glucose 149 mg/dL (74-99); Sodium 141 mmol/L (137-145); Total Bilirubin 0.9 mg/dL (0.2-1.3); Total Protein 7.1 g/dL (6.3-8.2)
[2017-06-07 08:09] VITALS: RESP 18
[2017-06-07] MEDS: ASPIRIN 81 MG PO SCH (08:25)
[2017-06-07] MEDS: PANTOPRAZOLE 40 MG TABLET PO SCH (08:25)
[2017-06-07] MEDS: HEPARIN SODIUM,PORCINE 5,000 UNIT/ML 1 ML VIAL SQ SCH (08:26)
[2017-06-07] MEDS: amLODIPine 10 MG TAB PO SCH (08:26)
[2017-06-07] MEDS: ATORVASTATIN 40 MG TAB PO SCH (08:26)
[2017-06-07] MEDS: METOCLOPRAMIDE 5 MG/ML 2 ML VIAL IVP SCH (08:26)
[2017-06-07] MEDS: cefTRIAXone IN SWFI 1,000 MG/10 ML SYRINGE IVP SCH (08:32)
[2017-06-07] MEDS ORDERED: DIVALPROEX 500 MG TABLET.DR PO SCH (09:00)
[2017-06-07 11:54] VITALS: BP 96/64; PULSE 83; TEMP 98.5
--- NOTE | 2017-06-07 13:08 | P.DS ---
Providers Date of admission: 06/05/17 18:54 Expected date of discharge: 06/07/17 Attending physician: Anya Carrero Consults: 06/05/17 18:55 Consult Physician Routine Consulting Provider: Joe Soliz Consult Reason/Comments: CP Do you want consulting provider notified?: Yes 06/06/17 09:32 Consult Physician Routine Consulting Provider: Wagner Moreira Consult Reason/Comments: intractable headache Do you want consulting provider notified?: Yes Primary care physician: Sheyla Mendenhall [facility] Course: 1. Chest pain: Acute coronary syndrome ruled out. Troponins negative 3 sets. EKG showing sinus tachycardia with no acute ischemic changes. D-dimer negative. Patient seen by cardiology. Stress echo was negative. 2. Acute migraine attack: With Headaches with nausea and photophobia. Seen and evaluated by neurology. Given 3 doses of IV Solu-Medrol and one dose of IV Depakote. Plan to continue Depakote by mouth to finish antibiotic course with Augmentin 500 every 8 hours. Follow up with neurology. 3. Gingivitis with 13 teeth removed. 4. Essential hypertension 5. Acid reflux Patient Condition at Discharge: Stable Plan - Discharge Summary New Discharge Prescriptions: New Amoxic-Pot Clav 875-125Mg [Augmentin 875-125] 1 tab PO Q12HR #10 tablet Atorvastatin [Lipitor] 40 mg PO DAILY #30 tab Divalproex [Depakote] 500 mg PO TID #60 tablet.dr Continue Omeprazole [PriLOSEC] 20 mg PO AC-BID amLODIPine BESYLATE [Norvasc] 10 mg PO HS Ibuprofen [Motrin] 600 mg PO Q6HR Methocarbamol [Robaxin-750] 750 - 1,500 mg PO TID PRN PRN Reason: Muscle Spasm Aspirin/Acetaminophen/Caffeine [Excedrin Migraine Caplet] 1 - 2 tab PO DAILY PRN PRN Reason: Migraine Headache Discharge Medication List Ibuprofen [Motrin] 600 mg PO Q6HR 06/05/17 [History] Methocarbamol [Robaxin-750] 750 - 1,500 mg PO TID PRN 06/05/17 [History] Omeprazole [PriLOSEC] 20 mg PO AC-BID 06/05/17 [History] amLODIPine BESYLATE [Norvasc] 10 mg PO HS 06/05/17 [History] Aspirin/Acetaminophen/Caffeine [Excedrin Migraine Caplet] 1 - 2 tab PO DAILY PRN 06/06/17 [History] Amoxic-Pot Clav 875-125Mg [Augmentin 875-125] 1 tab PO Q12HR #10 tablet [Rx] Atorvastatin [Lipitor] 40 mg PO DAILY #30 tab 06/07/17 [Rx] Divalproex [Depakote] 500 mg PO TID #60 tablet. 06/07/17 [Rx] Follow up Appointment(s)/Referral(s): Vicente Barnes MD [STAFF PHYSICIAN] - 1 Week Sheyla Mendenhall MD [Primary Care Provider] - 3 Days Wagner Moreira MD [STAFF PHYSICIAN] - 1 Week Discharge Disposition: HOME SELF-CARE
== END 2017-06-07 14:22 | disposition home or self-care (01) ==
LOC: EC 16:45 → 3OBS 18:54
PROVIDERS: ADMIT Internal Medicine; ATTEND Internal Medicine
DX: R07.89 Other chest pain (principal); G43.911 Migraine, unspecified, intractable, with status migrainosus; I10 Essential (primary) hypertension; E78.5 Hyperlipidemia, unspecified; K21.9 Gastro-esophageal reflux disease without esophagitis; K05.10 Chronic gingivitis, plaque induced; E83.52 Hypercalcemia; F12.90 Cannabis use, unspecified, uncomplicated; Z98.818 Other dental procedure status; R55 Syncope and collapse; R61 Generalized hyperhidrosis; R20.0 Anesthesia of skin; R20.2 Paresthesia of skin; Z79.899 Other long term (current) drug therapy; Z88.5 Allergy status to narcotic agent; Z87.891 Personal history of nicotine dependence
CPT/HCPCS: 99285 ×2; 96375 ×6; 96361 ×2; 96365; 96366; 96367; 96372 ×2; 96376 ×3; 36415; 93005; 93017; 93306; 93350; 85379; 83880; 80061; 80053 ×2; 82550 ×2; 82553 ×2; 83605; 83735; 84484 ×2; 85025 ×2; 85610; 85730; 87040; 71046; 93880; 70450; G0378 ×3; J1200 ×2; J1644 ×2; J2765 ×3; J2405; J2930 ×2; J0696 ×2; J1885 ×2; J3475; J2270 ×2

== ENCOUNTER → 2017-07-04 | Outpatient (CLI) | payer OTHER ==
--- NOTE | 2017-07-04 11:26 | XR ---
EXAMINATION TYPE: XR orbit detect foreign body DATE OF EXAM: 07/04/2017 COMPARISON: NONE HISTORY: Work with metal in the past, pre-MRI clearance. TECHNIQUE: Complete orbital series with Franco and Rashel frontal view and lateral view obtained. FINDINGS: No metallic intraorbital foreign body is seen to prevent MRI study. IMPRESSION: As above
--- NOTE | 2017-07-04 22:12 | MR ---
EXAMINATION TYPE: MR brain wo con DATE OF EXAM: 07/04/2017 COMPARISON: NONE HISTORY: 62-year-old male Migraine without aura and status migrainosus. TECHNIQUE: Multiplanar, multisequence images of the brain and brainstem were acquired without IV con trast. Diffusion weighted imaging is performed. FINDINGS: No evidence for acute infarction, hemorrhage, mass, mass effect, midline shift, herniation, effacemen t of basal cisterns, or extra-axial fluid collection. The ventricles and sulci are age-appropriate with mild generalized supratentorial volume loss. Major intracranial flow voids are intact. T2/FLAIR weighted sequences show mild scattered burden of white matter changes primarily in the bifro ntal subcortical regions numbering approximately 6 in the left cerebral hemisphere and within the rig ht cerebral hemisphere Midline structures demonstrate normal morphology. The craniocervical junction is normal. Large polyp or mucosal retention cyst along the floor of the right maxillary sinus. Moderate mucosal thickening within the left greater than right ethmoid air cells and frontal sinuses. Globes are intac t. IMPRESSION: 1. A few scattered foci of T2 bright white matter change primarily in the bifrontal subcortical regio ns with mild overall burden. Nonspecific findings which may relate to areas of ischemic demyelination secondary to chronic migraines given the patient's history. 2. Mild age-related atrophy and moderate chronic ethmoid and right maxillary sinus disease. Otherwise , no intracranial abnormality seen.
== END | disposition home or self-care (01) ==
LOC: RADMRIMAIN 11:02
PROVIDERS: ATTEND Psychiatry & Neurology Neurology
DX: G31.9 Degenerative disease of nervous system, unspecified (principal); G43.009 Migraine without aura, not intractable, without status migrainosus; I67.82 Cerebral ischemia; R90.82 White matter disease, unspecified
CPT/HCPCS: 70030; 70551

== ENCOUNTER → 2018-07-19 | Outpatient (CLI) | payer OTHER ==
--- NOTE | 2018-07-19 12:10 | CONS ---
CONSULTATION DATE OF SERVICE: 07/19/2018 This 63-year-old gentleman has been evaluated in the sleep center for significant excessive daytime sleepiness, multiple awakenings from sleep, difficulties to fall asleep. HISTORY OF PRESENT ILLNESS/SLEEP-WAKE EVALUATION: Patient usually goes to bed around 11:30 p.m. and gets up in the morning around 7:30 a.m. He does have problem with falling asleep. He has TV set in bedroom. He usually sleeps on the side and back position. According to his , he does not snore, but he wakes up from sleep more than 6 times with about 2 times of nocturia. Sometimes he has flail movements of his arms during the night, possibly out of dream movements. No history of hypnagogic hallucinations, sleep paralysis or cataplexy. In the morning, patient wakes up tired, falling asleep during the day, worried about his sleep, has problems with memory, concentration, irritability, depression. Winkelman Sleepiness Scale significantly increased to 20. When patient is busy he is not taking naps, but when he is not busy he feels sleepy and ready for the naps. He feels usually refreshed after naps. No dreams during naps according to patient. PAST MEDICAL HISTORY: Positive for hypertension, hyperlipidemia, acid reflux, migraines, which sometimes started in the morning, allergy to hay, episodes of vasovagal syncope as a reaction on needle injections. MEDICATIONS: Lipitor, Inderal, Topamax, Prilosec, Fioricet, melatonin, Allergy Relief. PAST SURGICAL HISTORY: Oral surgery, all his upper teeth have been removed by Oral Surgery in 2018. SOCIAL HISTORY: Positive for occasional smoking cigars for few years. Alcohol consumption none. FAMILY HISTORY: Arthritis and cancer. REVIEW OF SYSTEMS: Difficulties to initiate sleep in the evenings, multiple awakenings from sleep during the night and significant sleepiness during the day. PHYSICAL EXAMINATION: During physical exam, gentleman without distress. VITAL SIGNS: BP 110/71, HR 56, RR 16, height 5 feet 7 inches, weight 180 pounds, body mass index 28.1, temperature 97.9, oxygen saturation in room air 96%. HEENT: PERRLA, EOMI. Oropharynx extremely low position of soft palate. Mallampati 4. Restriction of nasal breathing. NECK: Wide neck 17 inches in circumference. LUNGS: Clear to percussion and to auscultation. Good air exchange. No wheezing or rhonchi. HEART: S1, S2 regular. No murmurs, gallops, or rubs. ABDOMEN: Slightly obese. EXTREMITIES: No clubbing or cyanosis. FUNERAL DRIVER: Awake, alert, and oriented X3. Cranial nerves 2 to 7 intact. There is no fasciculation or atrophy. noted. No focal deficits observed. IMPRESSION: 1. Multiple awakenings from sleep more than 6 times with episodes of nocturia, extremely low position of soft palate, wide neck, significant excessive daytime sleepiness, obstructive sleep apnea-hypopnea syndrome. 2. Significant excessive daytime sleepiness in extremely high range of 20, feels refreshed after naps. Differential diagnosis should include hypersomnia including narcolepsy. 3. Episodes of flail movements of his arms during the sleep, possibly out of dream behavioral, possible REM sleep behavior disorder with extreme sleepiness of with Winkelman Sleepiness Scale of 20. 4. Hypertension. 5. Hyperlipidemia. 6. Acid reflux. 7. Migraines with some episodes started in the morning, possibly related to sleep apnea. 8. Allergy. 9. Some restriction of nasal breathing. 10.History of vasovagal syncope episodes as a reaction of needle injection. PLAN: 1. Polysomnography for evaluation of patient's breathing during sleep. 2. CPAP/BiPAP titration if sleep study confirms obstructive sleep apnea-hypopnea syndrome. 3. Preferable position during sleep on the side. 4. No driving if patient feels any sleepiness. 5. I will see patient for follow up visit to explain results of testing and following plan. 6. Multiple sleep latency test if sleep study will be negative for obstructive sleep apnea-hypopnea syndrome. 7. Precautions related to possible REM sleep behavioral disorder buck size bed, possibility to use a sleeping bag. 8. Stimulus control, paradoxical intention, worry time, no watching clock to help for possible insomnia. Thank you very much for referring this patient for consultation. Sincerely, Dirk Medina MD, PhD, FAASM Diplomat of [place] [employer] [place] Educational Technology Specialist of [facility] MMODL / SARAHN: [id number] /
== END | disposition home or self-care (01) ==
LOC: SLEEP 10:34
PROVIDERS: ATTEND Internal Medicine
DX: G47.33 Obstructive sleep apnea (adult) (pediatric) (principal); M25.28 Flail joint, other site; I10 Essential (primary) hypertension; E78.5 Hyperlipidemia, unspecified; K21.9 Gastro-esophageal reflux disease without esophagitis; G43.909 Migraine, unspecified, not intractable, without status migrainosus; T78.40XA Allergy, unspecified, initial encounter; J34.9 Unspecified disorder of nose and nasal sinuses; F17.290 Nicotine dependence, other tobacco product, uncomplicated; Z86.69 Personal history of other diseases of the nervous system and sense organs; Z79.899 Other long term (current) drug therapy
CPT/HCPCS: 99211

== ENCOUNTER 2018-11-01 12:56 | Observation (INO) | payer OTHER ==
[2018-11-01] MEDS ORDERED: IBUPROFEN 800 MG TAB PO STA (14:06)
[2018-11-01] MEDS ORDERED: NITROGLYCERIN SL TABS 0.4 MG TAB SUBLINGUAL STA (14:19)
[2018-11-01] MEDS ORDERED: ASPIRIN 81 MG PO STA (14:19)
--- NOTE | 2018-11-01 14:43 | XR ---
EXAMINATION TYPE: XR chest 2V DATE OF EXAM: 11/01/2018 COMPARISON: 06/05/2017 TECHNIQUE: PA and lateral views submitted. HISTORY: Chest pain FINDINGS: The lungs are clear and there is no pneumothorax, pleural effusion, or focal pneumonia. No overt fa ilure. Stable mild prominence of the region of the right hilum and ascending aorta. Hypertrophic and degenerative change spine. IMPRESSION: 1. Stable appearance the right hilum and suprahilar region which could be associated with ectasia or mild aneurysmal dilation of the ascending aorta. The pattern is similar to the prior x-ray of 2018.
[2018-11-01 14:58] LABS: Basophils # (A) 0.1 k/uL (0-0.2); Basophils % (A) 1 %; Eosinophils # (A) 0.2 k/uL (0-0.7); Eosinophils % (A) 3 %; HCT 45.5 % (39.0-53.0); HGB 15.1 gm/dL (13.0-17.5); Lymphocytes % (A) 26 %; MCH 28.7 pg (25.0-35.0); MCHC 33.2 g/dL (31.0-37.0); MCV 86.6 fL (80.0-100.0); Mean Platelet Volume 6.8; Monocytes # (A) 0.3 k/uL (0-1.0); Monocytes % (A) 4 %; Neutrophils % (A) 65 %; Platelet Count 291 k/uL (150-450); RBC 5.26 m/uL (4.30-5.90); RDW 14.5 % (11.5-15.5); WBC 7.7 k/uL (3.8-10.6)
[2018-11-01 15:12] LABS: ALT 28 U/L (21-72); AST 25 U/L (17-59); African American GFR (CKD) >90 (>60 ml/min/1.73 sqM); Albumin 4.7 g/dL (3.5-5.0); Alkaline Phosphatase 64 U/L (38-126); Anion Gap 12 mmol/L; Blood Urea Nitrogen 12 mg/dL (9-20); Calcium 9.8 mg/dL (8.4-10.2); Carbon Dioxide 19 mmol/L (22-30); Chloride 110 mmol/L (98-107); Glucose 100 mg/dL (74-99); Magnesium 2.2 mg/dL (1.6-2.3); Potassium 4.3 mmol/L (3.5-5.1); Sodium 141 mmol/L (137-145); Total Bilirubin 1.8 mg/dL (0.2-1.3); Total Protein 8.1 g/dL (6.3-8.2)
[2018-11-01 15:13] LABS: Partial Thromboplastin Time 22.7 sec (22.0-30.0); Prothrombin Time 10.4 sec (9.0-12.0)
--- NOTE | 2018-11-01 15:16 | ED ---
General Adult HPI - General Chief complaint: Shortness of Breath Stated complaint: SOB/poss pneumonia Time Seen by Provider: 11/01/18 13:59 Source: patient Mode of arrival: wheelchair Limitations: no limitations - History of Present Illness Initial comments: Patient is 63-year-old male presenting to the emergency room with a chief complaint of shortness of breath. Patient reports he started using a CPAP machine approximately one month ago without any issues until the last 2 days he has developed shortness of breath. Patient denies dyspnea on exertion. Patient also reports a very mild, ache that does not radiate anywhere. Patient reports the pain is not exacerbated with exertion. Patient does report nausea but no vomiting. Patient denies any lightheaded, dizziness, blurry vision. Patient denies any abdominal or back pain. Patient denies taking any medication to alleviate the symptoms. Patient denies taking Medications to alleviate the symptoms. Patient does not have a family history of cardiac vascular disease but does report hypertension and hypercholesterolemia. Patient reports he was hospitalized approximately one year ago for sepsis and had a full cardiac workup, along with stress testing but no catheterization. Cardiac workup was unremarkable. - Related Data Home Medications Medication Instructions Recorded Confirmed Omeprazole [PriLOSEC] 20 mg PO HS 06/05/17 11/01/18 Aspirin/Acetaminophen/Caffeine 1 - 2 tab PO DAILY PRN 06/06/17 11/01/18 [Excedrin Migraine Caplet] Atorvastatin [Lipitor] 20 mg PO HS 11/01/18 11/01/18 Propranolol HCl [Inderal LA] 160 mg PO HS 11/01/18 11/01/18 Topiramate [Topamax] 100 mg PO HS 11/01/18 11/01/18 Allergies Allergy/AdvReac Type Severity Reaction Status Date / Time tetracycline Allergy Unknown Verified 11/01/18 13:09 hydrocodone [From [place]] AdvReac Nausea & Verified 11/01/18 13:09 Vomiting Review of Systems ROS Statement: Those systems with pertinent positive or pertinent negative responses have been documented in the HPI. ROS Other: All systems not noted in ROS Statement are negative. Past Medical History Past Medical History: GERD/Reflux, Hypertension, Renal Disease Additional Past Medical History / Comment(s): kidney disease History of Any Multi-Drug Resistant Organisms: None Reported Past Surgical History: Tonsillectomy Additional Past Surgical History / Comment(s): oral surgery Past Anesthesia/Blood Transfusion Reactions: No Reported Reaction Past Psychological History: No Psychological Hx Reported Smoking Status: Former smoker Past Alcohol Use History: None Reported Past Drug Use History: Marijuana - Past Family History Father Family Medical History: Unable to Obtain Mother Additional Family Medical History / Comment(s): Cerebral Palsey General Exam Limitations: no limitations General appearance: alert, in no apparent distress Head exam: Present: atraumatic, normocephalic, normal inspection Eye exam: Present: normal appearance, PERRL, EOMI Pupils: Present: normal accommodation ENT exam: Present: normal exam, mucous membranes moist, normal external ear exam Neck exam: Present: normal inspection, full ROM Respiratory exam: Present: normal lung sounds bilaterally. Absent: wheezes, rales, rhonchi, stridor Cardiovascular Exam: Present: regular rate, normal rhythm, normal heart sounds Extremities exam: Present: normal inspection, full ROM Back exam: Present: normal inspection, full ROM Neurological exam: Present: alert, oriented X3 Psychiatric exam: Present: normal affect, normal mood Skin exam: Present: warm, intact, normal color Course Vital Signs 11/01/18 11/01/18 11/01/18 13:07 13:37 15:20 Temperature 97.7 F Pulse Rate 52 L 63 Respiratory 20 20 18 Rate Blood Pressure 125/87 119/85 O2 Sat by Pulse 99 97 Oximetry 11/01/18 11/01/18 11/01/18 15:29 16:05 17:19 Temperature Pulse Rate 57 L 67 52 L Respiratory 18 18 18 Rate Blood Pressure 118/86 108/59 119/85 O2 Sat by Pulse 97 98 98 Oximetry 11/01/18 18:32 Temperature Pulse Rate 59 L Respiratory 18 Rate Blood Pressure 115/82 O2 Sat by Pulse 99 Oximetry EKG Findings - EKG Comments: EKG Findings:: Sinus bradycardia. Ventricular rate 54, NV interval 178, QRS duration 82, QT/QTC 426/403, P-R-T axes 2 -5 24 Medical Decision Making - Medical Decision Making Patient is 63-year-old male presenting to emergency room with a chief complaint of shortness of breath. Patient has began using a CPAP machine for sleep apnea for past month and he has developed shortness of breath over the last 2 days. Patient reports she has also developed a very mild substernal, dull ache without radiation anywhere. Patient denies any diaphoresis but does report nausea without vomiting. EKG shows sinus rhythm. CBC CMP unremarkable. Troponin is elevated. Patient does have an elevated d-dimer. Patient was sent for CTA. Imaging is unremarkable. Patient will be admitted for observation and serial troponins. Patient is a heart score 5. Case discussed with Dr. Dixon. Admitting physician as Dr. Carrero. Cardiology consulted. - Lab Data Result diagrams: 11/01/18 14:49 11/01/18 14:49 Lab Results 11/01/18 11/01/18 11/01/18 Range/Units 14:49 14:49 14:49 WBC 7.7 (3.8-10.6) k/uL RBC 5.26 (4.30-5.90) m/uL Hgb 15.1 (13.0-17.5) gm/dL Hct 45.5 (39.0-53.0) % MCV 86.6 (80.0-100.0) fL MCH 28.7 (25.0-35.0) pg MCHC 33.2 (31.0-37.0) g/dL RDW 14.5 (11.5-15.5) % Plt Count 291 (150-450) k/uL Neutrophils % 65 % Lymphocytes % 26 % Monocytes % 4 % Eosinophils % 3 % Basophils % 1 % Neutrophils # 5.0 (1.3-7.7) k/uL Lymphocytes # 2.0 (1.0-4.8) k/uL Monocytes # 0.3 (0-1.0) k/uL Eosinophils # 0.2 (0-0.7) k/uL Basophils # 0.1 (0-0.2) k/uL PT 10.4 (9.0-12.0) sec INR 1.0 (<1.2) APTT 22.7 (22.0-30.0) sec D-Dimer (<0.60) mg/L FEU Sodium 141 (137-145) mmol/L Potassium 4.3 (3.5-5.1) mmol/L Chloride 110 H (98-107) mmol/L Carbon Dioxide 19 L (22-30) mmol/L Anion Gap 12 mmol/L BUN 12 (9-20) mg/dL Creatinine 0.94 (0.66-1.25) mg/dL Est GFR (CKD-EPI)AfAm >90 (>60 ml/min/1.73 sqM) Est GFR (CKD-EPI)NonAf 86 (>60 ml/min/1.73 sqM) Glucose 100 H (74-99) mg/dL Calcium 9.8 (8.4-10.2) mg/dL Magnesium 2.2 (1.6-2.3) mg/dL Total Bilirubin 1.8 H (0.2-1.3) mg/dL AST 25 (17-59) U/L ALT 28 (21-72) U/L Alkaline Phosphatase 64 (38-126) U/L Troponin I (0.000-0.034) ng/mL Total Protein 8.1 (6.3-8.2) g/dL Albumin 4.7 (3.5-5.0) g/dL 11/01/18 11/01/18 Range/Units 14:49 14:49 WBC (3.8-10.6) k/uL RBC (4.30-5.90) m/uL Hgb (13.0-17.5) gm/dL Hct (39.0-53.0) % MCV (80.0-100.0) fL MCH (25.0-35.0) pg MCHC (31.0-37.0) g/dL RDW (11.5-15.5) % Plt Count (150-450) k/uL Neutrophils % % Lymphocytes % % Monocytes % % Eosinophils % % Basophils % % Neutrophils # (1.3-7.7) k/uL Lymphocytes # (1.0-4.8) k/uL Monocytes # (0-1.0) k/uL Eosinophils # (0-0.7) k/uL Basophils # (0-0.2) k/uL PT (9.0-12.0) sec INR (<1.2) APTT (22.0-30.0) sec D-Dimer 0.97 H (<0.60) mg/L FEU Sodium (137-145) mmol/L Potassium (3.5-5.1) mmol/L Chloride (98-107) mmol/L Carbon Dioxide (22-30) mmol/L Anion Gap mmol/L BUN (9-20) mg/dL Creatinine (0.66-1.25) mg/dL Est GFR (CKD-EPI)AfAm (>60 ml/min/1.73 sqM) Est GFR (CKD-EPI)NonAf (>60 ml/min/1.73 sqM) Glucose (74-99) mg/dL Calcium (8.4-10.2) mg/dL Magnesium (1.6-2.3) mg/dL Total Bilirubin (0.2-1.3) mg/dL AST (17-59) U/L ALT (21-72) U/L Alkaline Phosphatase (38-126) U/L Troponin I <0.012 (0.000-0.034) ng/mL Total Protein (6.3-8.2) g/dL Albumin (3.5-5.0) g/dL Disposition Clinical Impression: Chest pain, Shortness of breath Disposition: ADMITTED IP TO THIS HOSP Condition: Stable Instructions (If sedation given, give patient instructions): Angina (DC), Chest Pain (DC) Additional Instructions: Patient will be admitted. Is patient prescribed a controlled substance at d/c from ED?: No Referrals: Sheyla Mendenhall MD [Primary Care Provider] - 1-2 days Time of Disposition: 18:55
--- NOTE | 2018-11-01 17:22 | CT ---
EXAMINATION TYPE: CT chest angio for PE DATE OF EXAM: 11/01/2018 COMPARISON: None HISTORY: Chest pain CT DLP: 349.9 mGycm Automated exposure control for dose reduction was used. CONTRAST: CT Chest for pulmonary embolism performed with with IV Contrast, patient injected with 100 mL of Isov ue 370. FINDINGS: There are 3-D post processed images. Heart size is normal. There is no pericardial effusion. There is no pleural effusion. There are no hilar masses. There is no mediastinal adenopathy. There is minimal atheromatous change in the thoracic aorta. There is no aneurysm or dissection. Ascending aorta measu res 3.6 cm. The bony thorax is intact. There is spurring in the thoracic spine. I see no filling defects in the pulmonary arteries. Upper abdominal soft tissues are unremarkable. Lungs are clear of infiltrate. IMPRESSION: No evidence of pulmonary embolism. Negative exam.
[2018-11-01] MEDS ORDERED: ASPIRIN-ACET-CAFF 250-250-65MG 1 EACH TAB PO STA (18:35)
[2018-11-01] MEDS ORDERED: ACETAMINOPHEN TAB 325 MG TAB PO PRN (18:44)
[2018-11-01] MEDS ORDERED: ONDANSETRON 4 MG/2 ML VIAL IVP PRN (18:44)
[2018-11-01] MEDS ORDERED: IBUPROFEN 400 MG TAB PO PRN (18:44)
[2018-11-01] MEDS ORDERED: NALOXONE 0.4 MG/ML 1 ML VIAL IV PRN (18:44)
[2018-11-01] MEDS ORDERED: SODIUM CHLORIDE 0.9% 1,000 ML IV SCH (18:45)
[2018-11-01] MEDS ORDERED: METOCLOPRAMIDE 5 MG/ML 2 ML VIAL IVP STA (20:25)
[2018-11-01] MEDS ORDERED: KETOROLAC 30 MG/ML 1 ML VIAL IVP STA (20:25)
[2018-11-01] MEDS ORDERED: diphenhydrAMINE 50 MG/ML 1 ML VIAL IVP STA (20:26)
[2018-11-01] MEDS ORDERED: PANTOPRAZOLE 40 MG TABLET PO SCH (23:30)
[2018-11-01] MEDS ORDERED: PROPRANOLOL LA 80 MG CAP.SA.24H PO SCH (23:45)
[2018-11-01] MEDS ORDERED: TOPIRAMATE 100 MG TAB PO SCH (23:45)
[2018-11-02 07:58] VITALS: RESP 18
--- NOTE | 2018-11-02 08:53 | P.CRDCN ---
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 The patient stated that he woke up from sleep yesterday complaining of shortness of breath without any symptoms of chest pain or chest discomfort. No dizziness or lightheadedness, heart racing or fluttering, or syncope. Because of that he decided to come to the ER. The patient was ruled out for acute coronary event. 3 sets of cardiac enzymes came in to be unremarkable. The EKG did not show any significant ST or T-wave abnormalities. Beside that he underwent a computed tomography scan of the chest which showed no evidence of PE. The patient is not aware of any prior history of coronary artery disease, congestive heart failure, or cardiac arrhythmia. He was admitted to the hospital about a year ago where a stress test was performed and came in to be unremarkable and echocardiogram also came in to be unremarkable. Currently the patient is chest pain-free. He states also that the shortness of breath has improved. Past Medical History Past Medical History: GERD/Reflux, Hypertension, Renal Disease Additional Past Medical History / Comment(s): kidney disease History of Any Multi-Drug Resistant Organisms: None Reported Past Surgical History: Tonsillectomy Additional Past Surgical History / Comment(s): oral surgery Past Anesthesia/Blood Transfusion Reactions: No Reported Reaction Past Psychological History: No Psychological Hx Reported Smoking Status: Former smoker Past Alcohol Use History: None Reported Past Drug Use History: Marijuana - Past Family History Father Family Medical History: Unable to Obtain Mother Additional Family Medical History / Comment(s): Cerebral Palsey Medications and Allergies Home Medications Medication Instructions Recorded Confirmed Type Omeprazole [PriLOSEC] 20 mg PO HS 06/05/17 11/01/18 History Aspirin/Acetaminophen/Caffeine 1 - 2 tab PO DAILY PRN 06/06/17 11/01/18 History [Excedrin Migraine Caplet] Atorvastatin [Lipitor] 20 mg PO HS 11/01/18 11/01/18 History Propranolol HCl [Inderal LA] 160 mg PO HS 11/01/18 11/01/18 History Topiramate [Topamax] 100 mg PO HS 11/01/18 11/01/18 History Allergies Allergy/AdvReac Type Severity Reaction Status Date / Time tetracycline Allergy Unknown Verified 11/01/18 13:09 hydrocodone [From [place]] AdvReac Nausea & Verified 11/01/18 13:09 Vomiting Physical Exam Vitals: Vital Signs Temp Pulse Pulse Resp BP BP Pulse Ox 11/02/18 07:10 97.8 F 63 18 102/70 98 11/02/18 04:00 97.7 F 60 17 105/71 96 11/01/18 23:16 97.3 F L 60 17 112/71 98 11/01/18 22:45 60 17 11/01/18 22:43 98.1 F 68 18 109/81 97 11/01/18 20:56 65 18 103/75 98 11/01/18 18:32 59 L 18 115/82 99 11/01/18 17:19 52 L 18 119/85 98 11/01/18 16:05 67 18 108/59 98 11/01/18 15:29 57 L 18 118/86 97 11/01/18 15:20 63 18 119/85 97 11/01/18 13:37 20 11/01/18 13:07 97.7 F 52 L 20 125/87 99 Intake and Output 11/01/18 11/02/18 11/02/18 22:59 06:59 14:59 Other: # Voids 1 - Constitutional General appearance: no acute distress - Respiratory Respiratory: bilateral: CTA - Cardiovascular Rhythm: regular Heart sounds: normal: S1, S2 Results 11/01/18 14:49 11/01/18 14:49 Cardiac Enzymes 11/01/18 11/01/18 11/01/18 Range/Units 14:49 14:49 22:06 AST 25 (17-59) U/L Troponin I <0.012 <0.012 (0.000-0.034) ng/mL 11/02/18 Range/Units 02:45 AST (17-59) U/L Troponin I <0.012 (0.000-0.034) ng/mL Coagulation 11/01/18 Range/Units 14:49 PT 10.4 (9.0-12.0) sec APTT 22.7 (22.0-30.0) sec CBC 11/01/18 Range/Units 14:49 WBC 7.7 (3.8-10.6) k/uL RBC 5.26 (4.30-5.90) m/uL Hgb 15.1 (13.0-17.5) gm/dL Hct 45.5 (39.0-53.0) % Plt Count 291 (150-450) k/uL Comprehensive Metabolic Panel 11/01/18 Range/Units 14:49 Sodium 141 (137-145) mmol/L Potassium 4.3 (3.5-5.1) mmol/L Chloride 110 H (98-107) mmol/L Carbon Dioxide 19 L (22-30) mmol/L BUN 12 (9-20) mg/dL Creatinine 0.94 (0.66-1.25) mg/dL Glucose 100 H (74-99) mg/dL Calcium 9.8 (8.4-10.2) mg/dL AST 25 (17-59) U/L ALT 28 (21-72) U/L Alkaline Phosphatase 64 (38-126) U/L Total Protein 8.1 (6.3-8.2) g/dL Albumin 4.7 (3.5-5.0) g/dL Current Medications Generic Name Dose Route Start Last Admin Trade Name Freq PRN Reason Stop Dose Admin Acetaminophen 650 mg 11/01/18 18:44 Tylenol Tab PO Q6HR PRN Mild Pain or Fever > 100.5 Acetaminophen/Aspirin/Caffeine 1 - 2 each 11/02/18 09:00 Excedrin PO DAILY PRN Migraine Headache Atorvastatin Calcium 20 mg 11/02/18 21:00 Lipitor PO HS MARIA T Sodium Chloride 1,000 mls @ 50 mls/hr 11/01/18 18:45 11/01/18 18:49 Saline 0.9% IV 50 mls/hr .Q20H MARIA T Administration Ibuprofen 400 mg 11/01/18 18:44 Motrin PO Q6HR PRN Mild Pain or Fever > 100.5 Naloxone HCl 0.2 mg 11/01/18 18:44 Narcan IV Q2M PRN Opioid Reversal Ondansetron HCl 4 mg 11/01/18 18:44 Zofran IVP Q8HR PRN Nausea And Vomiting Pantoprazole Sodium 40 mg 11/01/18 23:30 11/02/18 00:26 Protonix PO 40 mg HS MARIA T Administration Propranolol HCl 160 mg 11/01/18 23:45 11/02/18 00:27 Inderal La PO 160 mg HS MARIA T Administration Topiramate 100 mg 11/01/18 23:45 11/02/18 00:26 Topamax PO 100 mg HS MARIA T Administration Intake and Output 11/01/18 11/02/18 11/02/18 22:59 06:59 14:59 Other: # Voids 1 11/01/18 14:49 11/01/18 14:49 Assessment and Plan Assessment: Assessment #1 shortness of breath which has improved #2 hypertension #3 dyslipidemia Plan #1 acute coronary event was ruled out #2 PE was ruled out #3 the patient does not seems to be in any overt congestive heart failure #4 I will obtain an echocardiogram was Doppler #5 the patient possibly can be discharged home later on today Thank you for allowing us participate in his care
[2018-11-02] MEDS ORDERED: ASPIRIN-ACET-CAFF 250-250-65MG 1 EACH TAB PO PRN (09:00)
[2018-11-02 09:15] LABS: Basophils % (A) 1 %; Eosinophils # (A) 0.2 k/uL (0-0.7); Eosinophils % (A) 3 %; HCT 41.5 % (39.0-53.0); HGB 13.6 gm/dL (13.0-17.5); Lymphocytes # (A) 2.1 k/uL (1.0-4.8); Lymphocytes % (A) 30 %; MCH 28.3 pg (25.0-35.0); MCHC 32.8 g/dL (31.0-37.0); MCV 86.4 fL (80.0-100.0); Mean Platelet Volume 6.5; Monocytes # (A) 0.3 k/uL (0-1.0); Monocytes % (A) 4 %; Neutrophils # (A) 4.4 k/uL (1.3-7.7); Neutrophils % (A) 62 %; Platelet Count 257 k/uL (150-450); RDW 14.3 % (11.5-15.5); WBC 7.2 k/uL (3.8-10.6)
[2018-11-02 09:22] LABS: Albumin 3.9 g/dL (3.5-5.0); Calcium 9.3 mg/dL (8.4-10.2); Potassium 3.4 mmol/L (3.5-5.1); Total Bilirubin 1.7 mg/dL (0.2-1.3); Total Protein 6.9 g/dL (6.3-8.2)
[2018-11-02] MEDS ORDERED: Potassium Replacement Protocol 1 EACH MISC MISCELLANE PRN (09:41)
--- NOTE | 2018-11-02 10:27 | P.HPIM ---
History of Present Illness H&P Date: 11/02/18 Chief Complaint: Shortness of breath This is a 63-year-old male patient of Dr. Mendenhall. Patient presented with complaints of shortness of breath. Patient reports that shortness of breath occurred while he was wearing his BiPAP. Patient reports he said his CPAP machine for over one month for sleep apnea and reports that over the past 2 days he has become increasingly short of breath that is exacerbated with exertion. Patient also reports occasional chest pain with shortness of breath occurring. Patient denies any significant cardiovascular history. Patient does have past medical history of GERD, hypertension, renal disease and ex-smoker. Troponins negative 3. D-dimer elevated at 0.97. Chest CT completed showing no evidence of pulmonary embolism negative exam. Chest x-ray completed showing stable appearance of the right ilium and suffered fuentes region which could be associated with ectasia or mild aneurysmal dilation of the ascending aorta pattern similar to prior x-ray of 2018. EKG completed showing sinus bradycardia otherwise normal EKG. Patient is complaining of left lower extremity cramping will order venous Doppler to rule out DVT. At this time patient denies any chest pain or shortness of breath. Patient denies nausea vomiting or diarrhea. Patient denies any urinary burning or frequency. Review of Systems Please refer to HPI otherwise unremarkable Past Medical History Past Medical History: GERD/Reflux, Hypertension, Renal Disease Additional Past Medical History / Comment(s): kidney disease History of Any Multi-Drug Resistant Organisms: None Reported Past Surgical History: Tonsillectomy Additional Past Surgical History / Comment(s): oral surgery Past Anesthesia/Blood Transfusion Reactions: No Reported Reaction Past Psychological History: No Psychological Hx Reported Smoking Status: Former smoker Past Alcohol Use History: None Reported Past Drug Use History: Marijuana - Past Family History Father Family Medical History: Unable to Obtain Mother Additional Family Medical History / Comment(s): Cerebral Palsey Medications and Allergies Home Medications Medication Instructions Recorded Confirmed Type Omeprazole [PriLOSEC] 20 mg PO HS 06/05/17 11/01/18 History Aspirin/Acetaminophen/Caffeine 1 - 2 tab PO DAILY PRN 06/06/17 11/01/18 History [Excedrin Migraine Caplet] Atorvastatin [Lipitor] 20 mg PO HS 11/01/18 11/01/18 History Propranolol HCl [Inderal LA] 160 mg PO HS 11/01/18 11/01/18 History Topiramate [Topamax] 100 mg PO HS 11/01/18 11/01/18 History Allergies Allergy/AdvReac Type Severity Reaction Status Date / Time tetracycline Allergy Unknown Verified 11/01/18 13:09 hydrocodone [From [place]] AdvReac Nausea & Verified 11/01/18 13:09 Vomiting Physical Exam Vitals: Vital Signs Temp Pulse Pulse Resp BP BP Pulse Ox 11/02/18 08:00 63 11/02/18 07:10 97.8 F 63 18 102/70 98 11/02/18 04:00 97.7 F 60 17 105/71 96 11/01/18 23:16 97.3 F L 60 17 112/71 98 11/01/18 22:45 60 17 11/01/18 22:43 98.1 F 68 18 109/81 97 11/01/18 20:56 65 18 103/75 98 11/01/18 18:32 59 L 18 115/82 99 11/01/18 17:19 52 L 18 119/85 98 11/01/18 16:05 67 18 108/59 98 11/01/18 15:29 57 L 18 118/86 97 11/01/18 15:20 63 18 119/85 97 11/01/18 13:37 20 11/01/18 13:07 97.7 F 52 L 20 125/87 99 Intake and Output 11/01/18 11/02/18 11/02/18 22:59 06:59 14:59 Other: # Voids 1 Head normocephalic Neck supple Lungs clear to auscultation bilaterally no wheezing or crackles Heart regular rate and rhythm S1-S2, no rub or gallop Abdomen is soft nontender nondistended positive bowel sounds no hepatosplenomegaly Extremities no edema Neuro alert and orientated to 3 Results CBC & Chem 7: 11/02/18 08:56 11/02/18 08:56 Labs: Abnormal Lab Results - Last 24 Hours (Table) 11/01/18 11/01/18 11/02/18 Range/Units 14:49 14:49 08:56 D-Dimer 0.97 H (<0.60) mg/L FEU Potassium 3.4 L (3.5-5.1) mmol/L Chloride 110 H 110 H (98-107) mmol/L Carbon Dioxide 19 L 20 L (22-30) mmol/L Glucose 100 H 109 H (74-99) mg/dL Total Bilirubin 1.8 H 1.7 H (0.2-1.3) mg/dL Thrombosis Risk Factor Assmnt - Choose All That Apply Any of the Below Risk Factors Present?: Yes Each Factor Represents 1 point: Acute [place], Obesity (BMI >25) Other Risk Factors: Yes Other congenital or acquired thrombophilia - If yes, enter type in comment: No Thrombosis Risk Factor Assessment Total Risk Factor Score: 2 Thrombosis Risk Factor Assessment Level: Low Risk Assessment and Plan Assessment: 1. Shortness of breath with occasional chest pain. Troponins negative 3. CTA negative for PE. Per cardiology acute coronary event has been ruled out PE has been ruled out patient does not appear to be in congestive heart failure 2-D echo has been ordered. 2. Left lower extremity cramping. Patient elevated d-dimer 0.97 will order venous Doppler to rule out DVT 3. Hypokalemia. Potassium 3.4. Replacement protocol 4. History of sleep apnea does wear home CPAP machine 5. Essential hypertension 6. Hyperlipidemia. Maintained on Lipitor DVT prophylaxis Lovenox. GI prophylaxis Protonix Time with Patient: Greater than 30 (Greater than 60% of the total time spent in counseling and coordination of care. I performed an examination of the patient and discussed their management with the Nurse Practitioner. I have reviewed the Nurse Practitioner's notes and agree with the documented findings and plan of care)
[2018-11-02] MEDS: POTASSIUM CHLORIDE ER 20 MEQ TAB.ER PO SCH ×2 (10:36→12:37)
--- NOTE | 2018-11-02 10:56 | ECHOF ---
Referral Reason:sob MEASUREMENTS -------- HEIGHT: 172.7 cm WEIGHT: 81.2 kg BP: 102/70 RVIDd: 3.3 cm (< 3.3) IVSd: 1.4 cm (0.6 - 1.1) LVIDd: 4.4 cm (3.9 - 5.3) LVPWd: 1.5 cm (0.6 - 1.1) IVSs: 2.1 cm LVIDs: 3.3 cm LVPWs: 1.7 cm LAESV Index (A-L): 19.75 ml/m Ao Diam: 3.6 cm (2.0 - 3.7) AV Cusp: 1.9 cm (1.5 - 2.6) LA Diam: 3.8 cm (2.7 - 3.8) EPSS: 0.6 cm MV E Oscar: 0.61 m/s MV DecT: 380 ms MV A Oscar: 0.82 m/s MV E/A Ratio: 0.74 RAP: 5.00 mmHg RVSP: 26.60 mmHg MV EF SLOPE: 63.91 mm/s (70 - 150) MV EXCURSION: 1.38 cm (> 18.000) FINDINGS -------- Sinus rhythm. This was a technically adequate study. The left ventricular size is normal. There is moderate concentric left ventricular hypertrophy. O verall left ventricular systolic function is normal with, an EF between 55 - 60 %. The diastolic fi lling pattern is normal for the age of the patient. The right ventricle is normal in size. Left atrium is normal size by volume. The right atrial size is normal. Interatrial and interventricular septum intact. The aortic valve is trileaflet and appears structurally normal. Trace amount of aortic regurgitatio n. There is no evidence of aortic stenosis. Mild mitral annular calcification present. [id number] mitral regurgitation is present. Mild tricuspid regurgitation present. There is no evidence of pulmonary hypertension. The right v entricular systolic pressure, as measured by Doppler, is 26.60mmHg. Trace/mild (physiologic) pulmonic regurgitation. The aortic root size is normal. The inferior vena cava was not well visualized. There is no pericardial effusion. CONCLUSIONS -------- 1. Sinus rhythm. 2. This was a technically adequate study. 3. The left ventricular size is normal. 4. There is moderate concentric left ventricular hypertrophy. 5. Overall left ventricular systolic function is normal with, an EF between 55 - 60 %. 6. The diastolic filling pattern is normal for the age of the patient. 7. The right ventricle is normal in size. 8. Left atrium is normal size by volume. 9. The right atrial size is normal. 10. Interatrial and interventricular septum intact. 11. The aortic valve is trileaflet and appears structurally normal. 12. Trace amount of aortic regurgitation. 13. There is no evidence of aortic stenosis. 14. Mild mitral annular calcification present. 15. [id number]-[id number] mitral regurgitation is present. 16. Mild tricuspid regurgitation present. 17. There is no evidence of pulmonary hypertension. 18. The right ventricular systolic pressure, as measured by Doppler, is 26.60mmHg. 19. Trace/mild (physiologic) pulmonic regurgitation. 20. The aortic root size is normal. 21. The inferior vena cava was not well visualized. 22. There is no pericardial effusion. SNACK BAR COOK: Alayna España RDCS
--- NOTE | 2018-11-02 12:19 | US ---
EXAMINATION TYPE: US venous doppler duplex LE DATE OF EXAM: 11/02/2018 9:41 AM COMPARISON: NONE CLINICAL HISTORY: elevated d-dimer, leg cramping. Elevated D dimer, left calf cramping SIDE PERFORMED: Bilateral TECHNIQUE: The lower extremity deep venous system is examined utilizing real time linear array sonog billy with graded compression, doppler sonography and color-flow sonography. VESSELS IMAGED: External Iliac Vein (EIV) Common Femoral Vein Deep Femoral Vein Greater Saphenous Vein * Femoral Vein Popliteal Vein Small Saphenous Vein * Proximal Calf Veins (* superficial vessels) Grayscale, color doppler, spectral doppler imaging performed of the deep veins of the lower extremiti es. There is normal flow, compressibility, vascular waveforms. Right Leg: Appears negative for DVT Left Leg: Appears negative for DVT IMPRESSION: No sonographic evidence of deep venous thrombosis within either bilateral lower extremit y.
--- NOTE | 2018-11-02 13:57 | P.DS ---
Providers Date of admission: 11/01/18 18:11 Expected date of discharge: 11/02/18 Attending physician: Anya Carrero Consults: 11/01/18 18:44 Consult Physician Stat Consulting Provider: Natalie De La Cruz Consult Reason/Comments: NM rule out Do you want consulting provider notified?: Yes Primary care physician: Sheyla Mendenhall Hospital Course: Discharge diagnosis 1. Shortness of breath with occasional chest pain. Troponins negative 3. CTA negative for PE. Per cardiology acute coronary event has been ruled out PE has been ruled out patient does not appear to be in congestive heart failure. 2-D echo completed showing EF of 55-60%. Patient has been cleared for discharge from cardiology 2. Left lower extremity cramping. Patient elevated d-dimer 0.97 will order venous Doppler to rule out DVT. Venous Doppler completed showing no sonographic evidence of deep vein thrombosis within either bilateral lower extremity. 3. Hypokalemia. Potassium 3.4. Replacement protocol 4. History of sleep apnea does wear home CPAP machine 5. Essential hypertension 6. Hyperlipidemia. Maintained on Lipitor Hospital course This is a 63-year-old male patient of Dr. Mendenhall. Patient presented with complaints of shortness of breath. Patient reports that shortness of breath occurred while he was wearing his BiPAP. Patient reports he said his CPAP machine for over one month for sleep apnea and reports that over the past 2 days he has become increasingly short of breath that is exacerbated with exertion. Patient also reports occasional chest pain with shortness of breath occurring. Patient denies any significant cardiovascular history. Patient does have past medical history of GERD, hypertension, renal disease and ex-smoker. Troponins negative 3. D-dimer elevated at 0.97. Chest CT completed showing no evidence of pulmonary embolism negative exam. Chest x-ray completed showing stable appearance of the right ilium and suffered fuentes region which could be associated with ectasia or mild aneurysmal dilation of the ascending aorta pattern similar to prior x-ray of 2018. EKG completed showing sinus bradycardia otherwise normal EKG. Patient is complaining of left lower extremity cramping will order venous Doppler to rule out DVT. At this time patient denies any chest pain or shortness of breath. Patient denies nausea vomiting or diarrhea. Patient denies any urinary burning or frequency. 11/02/2018 acute coronary event has been ruled out per cardiology. 2-D echo completed. Patient has superficial cardiology standpoint. Venous Doppler completed showing no evidence of DVT. This patient denies chest pain shortness of breath. Patient denies nausea vomiting diarrhea. Patient denies any urinary burning or frequency. Patient to follow-up with PCP for possible further workup in regards to shortness of breath I performed an examination of the patient and discussed their management with the Nurse Practitioner. I have reviewed the Nurse Practitioner's notes and agree with the documented findings and plan of care Patient Condition at Discharge: Stable Plan - Discharge Summary Discharge Rx Participant: No New Discharge Prescriptions: No Action Omeprazole [PriLOSEC] 20 mg PO HS Aspirin/Acetaminophen/Caffeine [Excedrin Migraine Caplet] 1 - 2 tab PO DAILY PRN PRN Reason: Migraine Headache Topiramate [Topamax] 100 mg PO HS Propranolol HCl [Inderal LA] 160 mg PO HS Atorvastatin [Lipitor] 20 mg PO HS Discharge Medication List Omeprazole [PriLOSEC] 20 mg PO HS 06/05/17 [History] Aspirin/Acetaminophen/Caffeine [Excedrin Migraine Caplet] 1 - 2 tab PO DAILY PRN 06/06/17 [History] Atorvastatin [Lipitor] 20 mg PO HS 11/01/18 [History] Propranolol HCl [Inderal LA] 160 mg PO HS 11/01/18 [History] Topiramate [Topamax] 100 mg PO HS 11/01/18 [History] Follow up Appointment(s)/Referral(s): Vicente Barnes MD [STAFF PHYSICIAN] - 2 Weeks (office will call patient with date and time of appointment with Dr. Barnes.) Sheyla Mendenhall MD [Primary Care Provider] - 1-2 days Patient Instructions/Handouts: Angina (DC), Chest Pain (DC) Activity/Diet/Wound Care/Special Instructions: Patient will be admitted.
[2018-11-02 15:37] VITALS: BP 107/71; PULSE 68; TEMP 97.5
[2018-11-02] MEDS ORDERED: ATORVASTATIN 20 MG TAB PO SCH (21:00)
[2018-11-03] MEDS ORDERED: ENOXAPARIN 40 MG/0.4 ML SYRINGE SQ SCH (09:00)
== END 2018-11-02 15:45 | disposition home or self-care (01) ==
LOC: EC 12:56 → 1SOBS 18:11
PROVIDERS: ADMIT Internal Medicine; ATTEND Internal Medicine
DX: R06.02 Shortness of breath (principal); I10 Essential (primary) hypertension; R77.8 Other specified abnormalities of plasma proteins; R79.89 Other specified abnormal findings of blood chemistry; R07.89 Other chest pain; R11.0 Nausea; G47.30 Sleep apnea, unspecified; E87.6 Hypokalemia; E78.5 Hyperlipidemia, unspecified; E78.00 Pure hypercholesterolemia, unspecified; K21.9 Gastro-esophageal reflux disease without esophagitis; N28.9 Disorder of kidney and ureter, unspecified; Z99.89 Dependence on other enabling machines and devices; R25.2 Cramp and spasm; R00.1 Bradycardia, unspecified; E66.9 Obesity, unspecified; Z68.27 Body mass index [BMI] 27.0-27.9, adult; Z79.899 Other long term (current) drug therapy; Z88.1 Allergy status to other antibiotic agents; Z88.5 Allergy status to narcotic agent; Z86.19 Personal history of other infectious and parasitic diseases; Z87.891 Personal history of nicotine dependence; Z82.69 Family history of other diseases of the musculoskeletal system and connective tissue
CPT/HCPCS: 96374; 96375; 99285; 36415; 93005; 93306; 85379; 80053 ×2; 83735; 84132; 84484 ×2; 85025 ×2; 85610; 85730; 71046; 93970; 71275; G0378 ×2; J1200; J2765; J1885; Q9967

== ENCOUNTER → 2018-11-29 | Outpatient (CLI) | payer OTHER ==
--- NOTE | 2018-11-29 19:38 | PN ---
PROGRESS NOTE DATE OF SERVICE: 11/29/2018 This patient is a 63-year-old gentleman who has been followed in the sleep center for treatment of obstructive sleep apnea-hypopnea syndrome. Several months ago the patient had a polysomnogram which showed obstructive sleep apnea- hypopnea syndrome, and during CPAP and then BiPAP titration, respiration was improved. I discussed the results of the sleep studies with the patient and family in detail. Subsequently the patient received treatment with CPAP. Today is his first visit after he started to use CPAP equipment. In the beginning, the patient was able to use CPAP equipment without significant problems for the first month. But then he developed more difficulties with the machine, and at present he has difficulties using machine, feels pressure and has difficulties breathing with that. Gaastra Sleepiness Scale today is 11. I checked his CPAP unit. Range of pressure is from 5 to 14. Average pressure 8.5 cm of water. Patient used equipment for 38 nights during the last several months, and 34 nights for more than 4 hours, with average usage 5.9 hours per night. Leak is 26 L/minute, which is borderline. Apnea-hypopnea index from the machine reading is 1.6, which is in normal range. MEDICATIONS: 1. Lipitor. 2. Inderal. 3. Topamax. 4. Prilosec. 5. Fioricet. 6. Baby aspirin. PHYSICAL EXAMINATION: GENERAL: A pleasant patient in no distress. VITAL SIGNS: BP 128/82, HR 61, RR 16, weight 176.6, temperature 97.9, oxygen saturation at room air 96%. HEENT: PERRLA, EOMI. Evaluation of oropharynx showed tongue protrudes midline. Extremely low position of soft palate. Mallampati IV. NECK: Supple. No JVD. Thyroid is not palpable. LUNGS: Clear to percussion and to auscultation. Good air exchange. No wheezing or rhonchi. HEART: S1, S2 regular. No murmurs, gallops or rubs. ABDOMEN: Slightly obese. EXTREMITIES: No clubbing or cyanosis. GROCERY TEAM MEMBER: Awake, alert, and oriented X3. Cranial nerves 2 to 7 intact. There is no fasciculation or atrophy. noted. No focal deficits observed. IMPRESSION: 1. Obstructive sleep apnea-hypopnea syndrome. At the beginning of treatment, the patient was able to use equipment every night, but for the last month he has had some difficulties to breathe with the machine, especially when he started to use CPAP equipment. Reading from the machine showed normal apnea-hypopnea index while he is using it. 2. Excessive daytime sleepiness. Gaastra Sleepiness Scale is 11. 3. Hypertension. 4. Hyperlipidemia. 5. Acid reflux. 6. Episodes of migraines. 7. Allergies. 8. Some restriction of nasal breathing. 9. History of vasovagal syncope. PLAN: 1. The patient will try to continue to use CPAP equipment every night. I will change the range of the pressure down and also I will make a long RAMP period at the beginning so it should help the patient use the equipment more easily. 2. Sleep hygiene with regular time in bed for 7-1/2 hours. 3. No driving if feeling any sleepiness. 4. Losing weight. Thank you very much for allowing me to participate in the management of your patient. Sincerely, Dirk Medina MD, PhD, FAASM Diplomat of [employer] Operator of [facility] [place] MMODL / IJN: [id number] /
== END ==
LOC: SLEEP 13:37
PROVIDERS: ATTEND Internal Medicine
DX: G47.33 Obstructive sleep apnea (adult) (pediatric) (principal); K21.9 Gastro-esophageal reflux disease without esophagitis; G43.909 Migraine, unspecified, not intractable, without status migrainosus; I10 Essential (primary) hypertension; E78.5 Hyperlipidemia, unspecified; Z88.9 Allergy status to unspecified drugs, medicaments and biological substances; J98.8 Other specified respiratory disorders; Z86.69 Personal history of other diseases of the nervous system and sense organs; Z99.89 Dependence on other enabling machines and devices; Z79.899 Other long term (current) drug therapy; Z79.82 Long term (current) use of aspirin

== ENCOUNTER → 2018-12-11 | Outpatient (CLI) | payer OTHER ==
--- NOTE | 2018-12-11 11:57 | FL ---
EXAMINATION TYPE: FL sniff test without CXR DATE OF EXAM: 12/11/2018 COMPARISON: NONE HISTORY: Prior asbestos exposure, shortness of breath TECHNIQUE: Fluoroscopy utilizing 23 seconds of fluoroscopy time was 1 image saved. FINDINGS: Single frontal view of the chest demonstrates no significant malalignment of the hemidiaphr agms. Patchy left basilar density may represent superimposition of structures. Evaluation of the jesse diaphragms was performed on real-time fluoroscopy. No abnormal diaphragmatic excursion. The lungs ris e and fall symmetrically. IMPRESSION: 1. No fluoroscopic evidence of diaphragmatic paresis 2. Nodular density at the left lung base may represent superimposition of structures however given th is patient's prior lung exposure CT thorax is recommended to ensure no underlying nodule.
== END | disposition home or self-care (01) ==
LOC: RADUSWWP 09:19
PROVIDERS: ATTEND Internal Medicine Clinical Cardiac Electrophysiology
DX: R06.01 Orthopnea (principal); R06.02 Shortness of breath
CPT/HCPCS: 76000

== ENCOUNTER 2019-11-26 04:53 | Emergency (ER) | payer MEDICARE ==
[2019-11-26] MEDS ORDERED: SODIUM CHLORIDE 0.9% 1,000 ML IV ONE (05:07)
[2019-11-26] MEDS ORDERED: KETOROLAC 15 MG/ML 1 ML VIAL IVP STA (05:07)
--- NOTE | 2019-11-26 05:27 | ED ---
Abdominal Pain HPI - General Chief Complaint: Abdominal Pain Stated Complaint: abd pain Time Seen by Provider: 11/26/19 05:06 Source: patient, family Mode of arrival: ambulatory Limitations: no limitations - History of Present Illness Initial Comments: Jose is a pleasant 64-year-old male with history of kidney stones who presents the ER today for evaluation of right flank right lower quadrant pain. Patient reports the pain began Tuesday evening. Pain was in his right flank and was similar to previous episodes of kidney stones. Patient took Flexeril and Motrin and pain improved significantly. Patient reports that throughout the day on Tuesday he had short episodes of colicky pain. He states that Tuesday night colicky pain became worse moved from the sling to his right lower quadrant with radiation into the groin. Was not associated with any fevers chills or vomiting, when the pain was severe he did have nausea. Patient reports that he hasn't had a bowel movement in 2 days which is typical for him. Patient took Motrin 800 prior to coming to the ER reports that upon arrival he is now pain- free but concerned given the pain is in the right lower quadrant that may be his appendix. - Related Data Home Medications Medication Instructions Recorded Confirmed Omeprazole [PriLOSEC] 20 mg PO HS 06/05/17 11/01/18 Aspirin/Acetaminophen/Caffeine 1 - 2 tab PO DAILY PRN 06/06/17 11/01/18 [Excedrin Migraine Caplet] Atorvastatin [Lipitor] 20 mg PO HS 11/01/18 11/01/18 Propranolol HCl [Inderal LA] 160 mg PO HS 11/01/18 11/01/18 Topiramate [Topamax] 100 mg PO HS 11/01/18 11/01/18 Previous Rx's Medication Instructions Recorded Aspirin 81 mg PO DAILY 30 Days #30 chewable 11/02/18 Tamsulosin [Flomax] 0.4 mg PO DAILY #14 cap 11/26/19 Allergies Allergy/AdvReac Type Severity Reaction Status Date / Time tetracycline Allergy Unknown Verified 11/26/19 05:00 hydrocodone [From [place]] AdvReac Nausea & Verified 11/26/19 05:00 Vomiting Review of Systems ROS Statement: Those systems with pertinent positive or pertinent negative responses have been documented in the HPI. ROS Other: All systems not noted in ROS Statement are negative. Past Medical History Past Medical History: COPD, GERD/Reflux, Hypertension, Renal Disease Additional Past Medical History / Comment(s): kidney disease History of Any Multi-Drug Resistant Organisms: None Reported Past Surgical History: Tonsillectomy Additional Past Surgical History / Comment(s): oral surgery Past Anesthesia/Blood Transfusion Reactions: No Reported Reaction Past Psychological History: No Psychological Hx Reported Smoking Status: Never smoker Past Alcohol Use History: None Reported Past Drug Use History: Marijuana - Past Family History Father Family Medical History: Unable to Obtain Mother Additional Family Medical History / Comment(s): Cerebral Palsey General Exam - General Exam Comments Initial Comments: Physical Exam GENERAL: Patient is well-developed and well-nourished. Patient is nontoxic and well- hydrated and is in no distress. HENT: Normocephalic, Atraumatic. EYES: PERRL, EOMI PULMONARY: Unlabored respirations. No audible rales rhonchi or wheezing was noted. CARDIOVASCULAR: There is a regular rate and rhythm without any murmurs gallops or rubs. ABDOMEN: Soft and nontender with normal bowel sounds. No tenderness to palpation Negative for a few sign, no McBurney's point tenderness SKIN: Skin is clear with no lesions or rashes and otherwise unremarkable. : Deferred NEUROLOGIC: Patient is alert and oriented x3. Moving all extremities spontaneously MUSCULOSKELETAL: Normal extremities with adequate strength and full range of motion. No lower extremity swelling or edema. No calf tenderness. PSYCHIATRIC: Normal psychiatric evaluation. Limitations: no limitations Course Vital Signs 11/26/19 04:56 Temperature 98 F Pulse Rate 72 Respiratory 18 Rate Blood Pressure 155/96 O2 Sat by Pulse 97 Oximetry Medical Decision Making - Medical Decision Making The patient was seen and evaluated history is obtained from the patient and at bedside History and physical exam are concerning for right-sided kidney stone given the patient initially had flank pain which has now radiated into the lower abdomen with pain radiating to the pelvis Physical exam reveals a gentleman in no acute distress with pain has resolved prior to arrival X-ray with no acute findings Labs reveal acute kidney injury as well as gross hematuria Results were discussed the patient who continues to rest comfortably with no pain Patient will be discharged with Tylenol 3 starter pack, Zofran starter pack and a prescription for Flomax - Lab Data Result diagrams: 11/26/19 05:11 11/26/19 05:11 Lab Results 11/26/19 11/26/19 11/26/19 Range/Units 05:11 05:11 05:11 WBC 12.0 H (3.8-10.6) k/uL RBC 5.12 (4.30-5.90) m/uL Hgb 14.2 (13.0-17.5) gm/dL Hct 44.6 (39.0-53.0) % MCV 87.1 (80.0-100.0) fL MCH 27.8 (25.0-35.0) pg MCHC 31.9 (31.0-37.0) g/dL RDW 13.9 (11.5-15.5) % Plt Count 265 (150-450) k/uL Neutrophils % 84 % Lymphocytes % 10 % Monocytes % 5 % Eosinophils % 0 % Basophils % 0 % Neutrophils # 10.2 H (1.3-7.7) k/uL Lymphocytes # 1.2 (1.0-4.8) k/uL Monocytes # 0.6 (0-1.0) k/uL Eosinophils # 0.1 (0-0.7) k/uL Basophils # 0.0 (0-0.2) k/uL Sodium 137 (137-145) mmol/L Potassium 4.2 (3.5-5.1) mmol/L Chloride 109 H (98-107) mmol/L Carbon Dioxide 19 L (22-30) mmol/L Anion Gap 9 mmol/L BUN 20 (9-20) mg/dL Creatinine 1.63 H (0.66-1.25) mg/dL Est GFR (CKD-EPI)AfAm 50 (>60 ml/min/1.73 sqM) Est GFR (CKD-EPI)NonAf 44 (>60 ml/min/1.73 sqM) Glucose 122 H (74-99) mg/dL Calcium 9.3 (8.4-10.2) mg/dL Total Bilirubin 0.7 (0.2-1.3) mg/dL AST 21 (17-59) U/L ALT 16 (4-49) U/L Alkaline Phosphatase 66 (38-126) U/L C-Reactive Protein 14.1 H (<10.0) mg/L Total Protein 7.2 (6.3-8.2) g/dL Albumin 4.2 (3.5-5.0) g/dL Lipase 205 (23-300) U/L Urine Color Yellow Urine Appearance Clear (Clear) Urine pH 5.5 (5.0-8.0) Ur Specific [place] 1.020 (1.001-1.035) Urine Protein Trace H (Negative) Urine Glucose (UA) Negative (Negative) Urine Ketones Negative (Negative) Urine Blood Large H (Negative) Urine Nitrite Negative (Negative) Urine Bilirubin Negative (Negative) Urine Urobilinogen <2.0 (<2.0) mg/dL Ur Leukocyte Esterase Moderate H (Negative) Urine RBC 77 H (0-5) /hpf Urine WBC 20 H (0-5) /hpf Ur Squamous Epith Cells <1 (0-4) /hpf Urine Mucus Occasional H (None) /hpf Disposition Clinical Impression: Acute right flank pain Disposition: HOME SELF-CARE Condition: Stable Additional Instructions: As we discussed doing a blood and urinary urine which is concerning for kidney stone, here labs are otherwise relatively unremarkable and does not seem to have appendicitis at this time Fever given Tylenol 3 and Zofran in the emergency department this is to manage the pain and nausea, also prescribed Flomax to help the kidney stone pass Follow-up with her primary care doctor for reevaluation in the next week even if symptoms improve Return to the emergency department for any worsening or development of new or concerning symptoms Prescriptions: Tamsulosin [Flomax] 0.4 mg PO DAILY #14 cap Is patient prescribed a controlled substance at d/c from ED?: No Referrals: Sheyla Mendenhall MD [Primary Care Provider] - 1-2 days
[2019-11-26 05:44] LABS: Basophils % (A) 0 %; Eosinophils # (A) 0.1 k/uL (0-0.7); Eosinophils % (A) 0 %; HCT 44.6 % (39.0-53.0); HGB 14.2 gm/dL (13.0-17.5); Lymphocytes # (A) 1.2 k/uL (1.0-4.8); Lymphocytes % (A) 10 %; MCH 27.8 pg (25.0-35.0); MCHC 31.9 g/dL (31.0-37.0); MCV 87.1 fL (80.0-100.0); Monocytes # (A) 0.6 k/uL (0-1.0); Monocytes % (A) 5 %; Neutrophils # (A) 10.2 k/uL (1.3-7.7); Neutrophils % (A) 84 %; Platelet Count 265 k/uL (150-450); RBC 5.12 m/uL (4.30-5.90); RDW 13.9 % (11.5-15.5)
[2019-11-26 05:49] LABS: Appearance,Urine Clear (Clear); Bilirubin,Urine Negative (Negative); Blood,Urine Large (Negative); Color,Urine Yellow; Glucose,Urine (UA) Negative (Negative); Ketones,Urine Negative (Negative); Leukocyte Esterase,Urine Moderate (Negative); Mucus,Urine Occasional /hpf; Nitrite,Urine Negative (Negative); PH, Urine 5.5 (5.0-8.0); Protein,Urine Trace (Negative); RBC,Urine 77 /hpf (0-5); Squamous Epithelial Cell,Urine <1 /hpf (0-4); Urobilinogen,Urine <2.0 mg/dL (<2.0); WBC,Urine 20 /hpf (0-5)
--- NOTE | 2019-11-26 05:53 | XR ---
EXAMINATION TYPE: XR abdomen 2V DATE OF EXAM: 11/26/2019 COMPARISON: 12/15/2009 HISTORY: Right flank pain TECHNIQUE: Supine and upright views FINDINGS: There is no sign of intestinal obstruction or pneumoperitoneum. Fecal pattern is normal. Th ere is 1 cm rounded calcification over the right upper quadrant that is calcified gallstone. There is no evidence of a mass. Lung bases are clear of consolidation. Bony structures are intact. I see no d efinite calcifications over the kidneys. IMPRESSION: Nonacute abdomen. Cholelithiasis. No definite renal stone.
[2019-11-26 06:00] LABS: Albumin 4.2 g/dL (3.5-5.0); C Reactive Protein 14.1 mg/L (<10.0); Calcium 9.3 mg/dL (8.4-10.2); Potassium 4.2 mmol/L (3.5-5.1); Total Bilirubin 0.7 mg/dL (0.2-1.3); Total Protein 7.2 g/dL (6.3-8.2)
[2019-11-26] MEDS ORDERED: ACET/COD 300 MG/30 MG STARTER PACK 6 TAB BTL PO STA (06:06)
[2019-11-26] MEDS ORDERED: ONDANSETRON 4 MG ODT STARTER PACK 2 TAB BTL PO STA (06:06)
[2019-11-26 06:36] VITALS: BP 120/82; PULSE 70; RESP 16; TEMP 97.1
== END 2019-11-26 06:36 | disposition home or self-care (01) ==
LOC: EC 04:53
DX: R10.31 Right lower quadrant pain (principal); N17.9 Acute kidney failure, unspecified; R31.0 Gross hematuria; I10 Essential (primary) hypertension; K21.9 Gastro-esophageal reflux disease without esophagitis; Z79.899 Other long term (current) drug therapy; Z88.1 Allergy status to other antibiotic agents; Z88.5 Allergy status to narcotic agent; Z87.442 Personal history of urinary calculi
CPT/HCPCS: 36415; 80053; 83690; 85025; 86140; 81001; 74019; 99284; 96374; 96361; J1885; S0119

== ENCOUNTER → 2021-05-13 | Outpatient (CLI) | payer MEDICARE ==
[2021-05-13 12:59] LABS: African American GFR (CKD) 89 (>60 ml/min/1.73 sqM); Anion Gap 8 mmol/L; Blood Urea Nitrogen 17 mg/dL (9-20); Carbon Dioxide 22 mmol/L (22-30); Chloride 107 mmol/L (98-107); Glucose 103 mg/dL (74-99); Magnesium 2.3 mg/dL (1.6-2.3); Non-African American GFR(CKD) 77 (>60 ml/min/1.73 sqM); Potassium 4.4 mmol/L (3.5-5.1); Sodium 137 mmol/L (137-145)
== END | disposition home or self-care (01) ==
LOC: LABWHC1 11:41
PROVIDERS: ATTEND Nurse Practitioner Adult Health
DX: I10 Essential (primary) hypertension (principal); I50.9 Heart failure, unspecified
CPT/HCPCS: 36415; 80048; 83735; 83880

== ENCOUNTER → 2021-06-30 | Outpatient (CLI) | payer MEDICARE ==
[2021-06-30 07:07] LABS: African American GFR (CKD) >90 (>60 ml/min/1.73 sqM); Blood Urea Nitrogen 12 mg/dL (9-20); Non-African American GFR(CKD) 81 (>60 ml/min/1.73 sqM)
--- NOTE | 2021-06-30 08:08 | CT ---
EXAMINATION TYPE: CT chest w con DATE OF EXAM: 06/30/2021 COMPARISON: None HISTORY: Dyspnea CT DLP: 406 mGycm Automated exposure control for dose reduction was used. TECHNIQUE: CT scan of the chest is performed with IV Contrast, patient injected with 100 mL of Isovue 300. MIP Images are created on CT scanner and reviewed. 3D reconstructed images are created on an independent workstation and reviewed. FINDINGS: LUNGS: The lungs are grossly clear, there is no concerning parenchymal mass or nodule identified. T here is no pleural effusion or pneumothorax seen. The tracheobronchial tree is patent. Subsegmental changes most typical of atelectasis. Vague 5 mm nodular density anterior margin left lower lobe likel y postinflammatory. MEDIASTINUM: There are no greater than 1 cm hilar or mediastinal lymph nodes. No pericardial effusi on is seen. Coronary artery atherosclerotic changes seen. Central pulmonary arteries enhance normall y. OTHER: Large gallstone noted. Hypertrophic and degenerative changes of the spine. Nonobstructing lef t renal calculi seen. Small hiatal hernia noted. IMPRESSION: 1. Large gallstone. 2. No acute intrathoracic process. Note is made of coronary artery atherosclerotic disease correlate clinically. 3. 5 mm left lower lobe nodular density most likely inflammatory recommend 3 to 6 month follow-up to confirm stability or resolution. 4. There are 5 mm or less left nonobstructing left renal calculus.
== END | disposition home or self-care (01) ==
LOC: RADCTMAIN 06:28
PROVIDERS: ATTEND Family Medicine
DX: K80.20 Calculus of gallbladder without cholecystitis without obstruction (principal); I25.10 Atherosclerotic heart disease of native coronary artery without angina pectoris; J98.4 Other disorders of lung; N20.0 Calculus of kidney
CPT/HCPCS: 82565; 84520; 71260; 36415; Q9967

== ENCOUNTER → 2021-09-10 | Outpatient (CLI) | payer MEDICARE ==
--- NOTE | 2021-09-10 09:33 | CT ---
EXAMINATION TYPE: CT sinus wo con CT DLP: 667.3 mGycm, Automated exposure control for dose reduction was used. DATE OF EXAM: 09/10/2021 9:01 AM COMPARISON: CT brain 06/06/2017. CLINICAL INDICATION:Male, 66 years old with history of J32.9 chronic sinusitis; PHH, Chronic sinusiti s. CONTRAST: None. TECHNIQUE: Multiple thin axial images were obtained through the paranasal sinuses without the use of IV contrast. Additional coronal and sagittal reformatted images were submitted for evaluation. FINDINGS: Frontal sinuses: Minimal mucosal thickening bilaterally. Frontal Recess: Minimal mucosal thickening b ilaterally. Modified Stewardson-[place] Score: Right 1 = 1-25% Opacified, Left 1 = 1-25% Opacified Maxillary Sinuses: Minimal mucosal thickening bilaterally. Modified Emigdio-Kera Score: Right 1 = 1-25% Opacified, Left 1 = 1-25% Opacified Maxillary Infundibula(OMC): Clear, No Diogo cells identified. Modified Emigdio-Kera Score: Right 0 = Completely patent, Left 0 = Completely patent Ethmoid sinuses: Normally developed and aerated. Ethmoidal notch: Protected and abutting the lateral lamina. Modified Stewardson-Kera Score: Anterior Right 1 = 1-25% Opacified, Left 0 = 0% Opacified Posterior Right 0 = 0% Opacified, Left 0 = 0% Opacified Sphenoid sinuses: Normally developed and aerated. No evidence of dehiscence. No dehiscence of caroti d canal. No evidence of optic nerve dehiscence within the sphenoid sinus. No evidence of Onodi cells. Sphenoethmoidal recesses: Clear. Modified Emigdio-Kera Score: Right 0 = 0% Opacified, Left 0 = 0% Opacified. Nasal septum: Within normal limits.. Nasal Turbinates: Within normal limits. No christy bullosa Mastoid air cells & middle ears: The air cells are clear. The middle ears are grossly unremarkable. Modified Soft tissues & Brain: Partially seen without gross abnormality. Globes are intact. Other: Cribriform plate demonstrates symmetric Keros classification type 2 cribriform plate. No evidence of bony dehiscence of skull base. Lamina papyracea is intact without evidence of remote orbital fracture or orbital prolapse into the e thmoid sinus. Pneumatization of the alejandro maricruz. IMPRESSION: 1. Minimal mucosal sinus disease. 2. The ostiomeatal units, frontonasal and sphenoethmoidal recesses are clear. 3. Opacification burden of 5/54 on the Modified Stewardson-[place] scoring system.
== END | disposition home or self-care (01) ==
LOC: RADCTMAIN 08:42
PROVIDERS: ATTEND Otolaryngology
DX: J32.9 Chronic sinusitis, unspecified (principal)
CPT/HCPCS: 70486

== ENCOUNTER 2022-11-16 05:42 | Emergency (ER) | payer MEDICARE ==
[2022-11-16] MEDS ORDERED: SODIUM CHLORIDE 0.9% 1,000 ML IV STA (06:22)
[2022-11-16] MEDS ORDERED: KETOROLAC 15 MG/ML 1 ML VIAL IVP STA (06:22)
[2022-11-16] MEDS ORDERED: ONDANSETRON 4 MG/2 ML VIAL IVP STA (06:22)
[2022-11-16] MEDS ORDERED: HYDROmorphone 0.5 MG/0.5 ML SYRINGE IVP STA (06:22)
--- NOTE | 2022-11-16 06:30 | ED ---
General Adult HPI - General Chief complaint: Back Pain/Injury Stated complaint: Back pain Time Seen by Provider: 11/16/22 05:58 Source: family, RN notes reviewed Mode of arrival: wheelchair Limitations: no limitations - History of Present Illness Initial comments: 67-year-old male presents emergency Department chief complaint right flank pain. Patient states started a few days ago. Patient states nothing makes it feel better or worse at this time. Patient states constant right flank pain along his right lower rib. Patient denies any trauma no rashes. Patient denies any dysuria hematuria patient does have a history kidney stones. Patient denies any fevers chills nausea vomiting. Has chest pain or shortness breath. - Related Data Home Medications Medication Instructions Recorded Confirmed Omeprazole [PriLOSEC] 20 mg PO HS 06/05/17 11/01/18 Aspirin/Acetaminophen/Caffeine 1 - 2 tab PO DAILY PRN 06/06/17 11/01/18 [Excedrin Migraine Caplet] Atorvastatin [Lipitor] 20 mg PO HS 11/01/18 11/01/18 Propranolol HCl [Inderal LA] 160 mg PO HS 11/01/18 11/01/18 Topiramate [Topamax] 100 mg PO HS 11/01/18 11/01/18 Previous Rx's Medication Instructions Recorded Aspirin 81 mg PO DAILY 30 Days #30 chewable 11/02/18 Tamsulosin [Flomax] 0.4 mg PO DAILY #14 cap 11/26/19 Acetaminophen-Codeine 300-30mg 1 tab PO Q4H PRN #20 tablet 11/16/22 [Tylenol #3] Ondansetron Odt [Zofran Odt] 4 mg PO Q8HR PRN #10 tab 11/16/22 Tamsulosin [Flomax] 0.4 mg PO DAILY #7 cap 11/16/22 Allergies Allergy/AdvReac Type Severity Reaction Status Date / Time tetracycline Allergy Unknown Verified 11/16/22 05:51 hydrocodone [From [place]] AdvReac Nausea & Verified 11/16/22 05:51 Vomiting Review of Systems ROS Statement: Those systems with pertinent positive or pertinent negative responses have been documented in the HPI. ROS Other: All systems not noted in ROS Statement are negative. Past Medical History Past Medical History: COPD, GERD/Reflux, Hypertension, Renal Disease Additional Past Medical History / Comment(s): kidney disease History of Any Multi-Drug Resistant Organisms: None Reported Past Surgical History: Tonsillectomy Additional Past Surgical History / Comment(s): oral surgery Past Anesthesia/Blood Transfusion Reactions: No Reported Reaction Past Psychological History: No Psychological Hx Reported Smoking Status: Never smoker Past Alcohol Use History: None Reported Past Drug Use History: Marijuana - Past Family History Father Family Medical History: Unable to Obtain Mother Additional Family Medical History / Comment(s): Cerebral Palsey General Exam Limitations: no limitations General appearance: alert, in no apparent distress Head exam: Present: atraumatic, normocephalic, normal inspection Eye exam: Present: normal appearance, PERRL, EOMI. Absent: scleral icterus, conjunctival injection, periorbital swelling ENT exam: Present: normal exam, mucous membranes moist Neck exam: Present: normal inspection, full ROM. Absent: tenderness, meningismus, lymphadenopathy Respiratory exam: Present: normal lung sounds bilaterally. Absent: respiratory distress, wheezes, rales, rhonchi, stridor Cardiovascular Exam: Present: regular rate, normal rhythm, normal heart sounds. Absent: systolic murmur, diastolic murmur, rubs, gallop, clicks GI/Abdominal exam: Present: soft, tenderness, normal bowel sounds. Absent: distended, guarding, rebound, rigid Back exam: Present: full ROM, CVA tenderness (R). Absent: CVA tenderness (L), paraspinal tenderness, vertebral tenderness Neurological exam: Present: alert, oriented X3, CN II-XII intact, reflexes normal. Absent: motor sensory deficit Course Vital Signs 11/16/22 05:49 Temperature 97.8 F Pulse Rate 68 Respiratory 18 Rate Blood Pressure 143/90 O2 Sat by Pulse 96 Oximetry Medical Decision Making - Medical Decision Making Was pt. sent in by a medical professional or institution (, PA, AUTOMATIC BLOCKER, urgent care, hospital, or skilled nursing...) When possible be specific @ -No Did you speak to anyone other than the patient for history (EMS, parent, family, police, friend...)? What history was obtained from this source @ -No Did you review nursing and triage notes (agree or disagree)? Why? @ -I reviewed and agree with nursing and triage notes Were old charts reviewed (outside hosp., previous admission, EMS record, old EKG, old radiological studies, urgent care reports/EKG's, skilled nursing records)? Report findings @ -No old charts were reviewed Differential Diagnosis (chest pain, altered mental status, abdominal pain women, abdominal pain men, vaginal bleeding, weakness, fever, dyspnea, syncope, headache, dizziness, GI bleed, back pain, seizure, CVA, palpatations, mental health, musculoskeletal)? @ -Differential Abdominal Pain Men: Appendicitis, cholecystitis, diverticulosis, ischemic bowel, pancreatitis, hepatitis, UTI, gastroenteritis, AAA, incarcerated hernia, bowel obstruction, constipation, inflammatory bowel, hepatitis, peptic ulcer disease, splenic infarction, perforated viscus, testicular torsion, this is not meant to be an all-inclusive listble EKG interpreted by me (3pts min.). @ -None X-rays interpreted by me (1pt min.). @ -None done CT interpreted by me (1pt min.). @ -CT abdomen and pelvis without contrast showing evidence of a 7 mm right proximal ureter stone. U/S interpreted by me (1pt. min.). @ -None done What testing was considered but not performed or refused? (CT, X-rays, U/S, labs)? Why? @ -None What meds were considered but not given or refused? Why? @ -None Did you discuss the management of the patient with other professionals (professionals i.e. , PA, AUTOMATIC BLOCKER, lab, RT, psych nurse, social service worker, senior hr business partner, teacher, client sales and service officer, family independence case manager)? Give summary @ -No Was smoking cessation discussed for >3mins.? @ -No Was critical care preformed (if so, how long)? @ -No Were there social determinants of health that impacted care today? How? (Ho melessness, low income, unemployed, alcoholism, drug addiction, transportation, low edu. Level, literacy, decrease access to med. care, shelter, rehab)? @ -No Was there de-escalation of care discussed even if they declined (Discuss DNR or withdrawal of care, Hospice)? DNR status @ -No What co-morbidities impacted this encounter? (DM, HTN, Smoking, COPD, CAD, Cancer, CVA, ARF, Chemo, Hep., AIDS, mental health diagnosis, sleep apnea, morbid obesity)? @ -None Was patient admitted / discharged? Hospital course, mention meds given and route, prescriptions, significant lab abnormalities, going to OR and other pertinent info. @ -Discharge patient has evidence of kidney stone on the right patient's pain is greatly improved. Patient discharged advised to follow up with urology as he has a large 7 mm ureteral calculi. Patient agrees this plan. Undiagnosed new problem with uncertain prognosis? @ -No Drug Therapy requiring intensive monitoring for toxicity (Heparin, Nitro, Insulin, Cardizem)? @ -No Were any procedures done? @ -No Diagnosis/symptom? @ -Right ureteral calculi] Acute, or Chronic, or Acute on Chronic? @ -Acute Uncomplicated (without systemic symptoms) or Complicated (systemic symptoms)? @ -Uncomplicated Side effects of treatment? @ -No Exacerbation, Progression, or Severe Exacerbation? @ -No Poses a threat to life or bodily function? How? (Chest pain, [place], [place], pneumonia, PE, COPD, DKA, ARF, appy, cholecystitis, CVA, Diverticulitis, Homicidal, Suicidal, threat to staff... and all critical care pts) @ -No - Lab Data Result diagrams: 11/16/22 06:24 11/16/22 06:24 Lab Results 11/16/22 11/16/22 11/16/22 Range/Units 06:24 06:24 06:24 WBC 12.2 H (3.8-10.6) k/uL RBC 4.75 (4.30-5.90) m/uL Hgb 14.0 (13.0-17.5) gm/dL Hct 42.5 (39.0-53.0) % MCV 89.6 (80.0-100.0) fL MCH 29.6 (25.0-35.0) pg MCHC 33.0 (31.0-37.0) g/dL RDW 14.1 (11.5-15.5) % Plt Count 250 (150-450) k/uL MPV 7.3 Neutrophils % 80 % Lymphocytes % 12 % Monocytes % 6 % Eosinophils % 1 % Basophils % 0 % Neutrophils # 9.7 H (1.3-7.7) k/uL Lymphocytes # 1.4 (1.0-4.8) k/uL Monocytes # 0.8 (0-1.0) k/uL Eosinophils # 0.1 (0-0.7) k/uL Basophils # 0.0 (0-0.2) k/uL Sodium 137 (137-145) mmol/L Potassium 4.0 (3.5-5.1) mmol/L Chloride 109 H (98-107) mmol/L Carbon Dioxide 20 L (22-30) mmol/L Anion Gap 8 mmol/L BUN 18 (9-20) mg/dL Creatinine 1.34 H (0.66-1.25) mg/dL Est GFR (CKD-EPI)AfAm 63 (>60 ml/min/1.73 sqM) Est GFR (CKD-EPI)NonAf 54 (>60 ml/min/1.73 sqM) Glucose 105 H (74-99) mg/dL Calcium 9.0 (8.4-10.2) mg/dL Total Bilirubin 0.6 (0.2-1.3) mg/dL AST 21 (17-59) U/L ALT 18 (4-49) U/L Alkaline Phosphatase 60 (38-126) U/L Total Protein 6.5 (6.3-8.2) g/dL Albumin 3.7 (3.5-5.0) g/dL Lipase 339 H (23-300) U/L Urine Color Colorless Urine Appearance Clear (Clear) Urine pH 6.0 (5.0-8.0) Ur Specific [place] 1.005 (1.001-1.035) Urine Protein Negative (Negative) Urine Glucose (UA) Negative (Negative) Urine Ketones Negative (Negative) Urine Blood Moderate H (Negative) Urine Nitrite Negative (Negative) Urine Bilirubin Negative (Negative) Urine Urobilinogen <2.0 (<2.0) mg/dL Ur Leukocyte Esterase Negative (Negative) Urine RBC 10 H (0-5) /hpf Urine WBC 1 (0-5) /hpf Urine Mucus Rare H (None) /hpf Disposition Clinical Impression: Right ureteral calculus Disposition: HOME SELF-CARE Condition: Stable Instructions (If sedation given, give patient instructions): Kidney Stones (ED) Additional Instructions: Please return to the Emergency Department if symptoms worsen or any other concerns. Prescriptions: Tamsulosin [Flomax] 0.4 mg PO DAILY #7 cap Acetaminophen-Codeine 300-30mg [Tylenol #3] 1 tab PO Q4H PRN #20 tablet PRN Reason: pain Ondansetron Odt [Zofran Odt] 4 mg PO Q8HR PRN #10 tab PRN Reason: Nausea Is patient prescribed a controlled substance at d/c from ED?: Yes When asked, does pt state using other controlled substances?: No If prescribed controlled substance>3 days was MAPS reviewed?: Yes If opioid is for acute pain is fill amount 7 days or less?: Yes If Rx opioid, was Start Talking consent form obtained?: Yes Referrals: Sheyla Mendenhall MD [Primary Care Provider] - 1-2 days Arron Villanueva MD [STAFF PHYSICIAN] - 1-2 days Time of Disposition: 08:35
[2022-11-16 06:46] LABS: Basophils % (A) 0 %; Eosinophils # (A) 0.1 k/uL (0-0.7); Eosinophils % (A) 1 %; HCT 42.5 % (39.0-53.0); Lymphocytes # (A) 1.4 k/uL (1.0-4.8); Lymphocytes % (A) 12 %; MCH 29.6 pg (25.0-35.0); MCV 89.6 fL (80.0-100.0); Mean Platelet Volume 7.3; Monocytes # (A) 0.8 k/uL (0-1.0); Monocytes % (A) 6 %; Neutrophils # (A) 9.7 k/uL (1.3-7.7); Neutrophils % (A) 80 %; Platelet Count 250 k/uL (150-450); RBC 4.75 m/uL (4.30-5.90); RDW 14.1 % (11.5-15.5); WBC 12.2 k/uL (3.8-10.6)
[2022-11-16 06:59] LABS: ALT 18 U/L (4-49); AST 21 U/L (17-59); African American GFR (CKD) 63 (>60 ml/min/1.73 sqM); Albumin 3.7 g/dL (3.5-5.0); Alkaline Phosphatase 60 U/L (38-126); Anion Gap 8 mmol/L; Blood Urea Nitrogen 18 mg/dL (9-20); Carbon Dioxide 20 mmol/L (22-30); Chloride 109 mmol/L (98-107); Glucose 105 mg/dL (74-99); Lipase 339 U/L (23-300); Non-African American GFR(CKD) 54 (>60 ml/min/1.73 sqM); Sodium 137 mmol/L (137-145); Total Bilirubin 0.6 mg/dL (0.2-1.3); Total Protein 6.5 g/dL (6.3-8.2)
[2022-11-16 07:52] LABS: Appearance,Urine Clear (Clear); Bilirubin,Urine Negative (Negative); Blood,Urine Moderate (Negative); Color,Urine Colorless; Glucose,Urine (UA) Negative (Negative); Ketones,Urine Negative (Negative); Leukocyte Esterase,Urine Negative (Negative); Mucus,Urine Rare /hpf; Nitrite,Urine Negative (Negative); Protein,Urine Negative (Negative); RBC,Urine 10 /hpf (0-5); Specific Gravity,Urine 1.005 (1.001-1.035); Urobilinogen,Urine <2.0 mg/dL (<2.0); WBC,Urine 1 /hpf (0-5)
--- NOTE | 2022-11-16 08:25 | CT ---
EXAMINATION TYPE: CT abdomen pelvis wo con DATE OF EXAM: 11/16/2022 COMPARISON: None INDICATION: Right flank pain DLP: 898.76 mGycm, Automated exposure control for dose reduction was used. CONTRAST: 0 mL of Isovue 300. Study performed without Oral Contrast TECHNIQUE: Axial images were obtained from above the diaphragm to the pubic rami in the axial plane a t 5 mm thick sections. Reconstructed images are reviewed on the computer in the coronal plane. FINDINGS: Limited CT sections are obtained the lung bases. The lung bases are clear. CT ABDOMEN: Liver: Normal Spleen: Normal Pancreas: Normal Adrenal glands: The adrenal glands are normal. Gallbladder: Cholelithiasis. Kidneys: No masses are evident. Right kidney is prominent. There is a moderate right hydronephrosis w ith hydroureter. Punctate renal stones within the proximal right ureter just distal to the ureteropel priscilla junction measuring 0.3 cm. A larger obstructing proximal right ureteral stone just adjacent is 0. 7 cm. There is calcification within the urinary bladder. There is a 0.3 cm nonobstructing renal stone in the midpole left kidney. Additional mid to inferior pole renal stones are present on the left 0.4 cm and 0.2 cm. No cysts are present. Aorta: Vascular calcification is within the aorta. Inferior vena cava: Normal. CT PELVIS: Loops of bowel within the abdomen and pelvis are normal. Study is without oral contrast limiting bowel evaluation. Appendix: Not identified. No dilated tubular structure or inflammatory changes. Urinary bladder: Calcifications within the posterior dependent urinary bladder. Genitourinary structures: Prostate is very prominent. Osseous structures: No suspicious lytic or sclerotic lesions. IMPRESSION: 1. Obstructing 0.7 cm proximal right ureteral stone with moderate right hydronephrosis. 2. Nonobstructing left renal stones. 3. Cholelithiasis. 4. Calcification within the urinary bladder within the dependent portion.
[2022-11-16 08:55] VITALS: BP 129/86; PULSE 67; RESP 16; TEMP 97.9
== END 2022-11-16 09:00 | disposition home or self-care (01) ==
LOC: EC 05:42
DX: N13.2 Hydronephrosis with renal and ureteral calculous obstruction (principal); J44.9 Chronic obstructive pulmonary disease, unspecified; K21.9 Gastro-esophageal reflux disease without esophagitis; I10 Essential (primary) hypertension; F12.90 Cannabis use, unspecified, uncomplicated; Z79.82 Long term (current) use of aspirin; Z79.899 Other long term (current) drug therapy; Z88.5 Allergy status to narcotic agent; Z88.6 Allergy status to analgesic agent
CPT/HCPCS: 36415; 80053; 83690; 85025; 81001; 74176; 99284; 96374; 96375 ×2; 96361; J2405; J1885; J1170

== ENCOUNTER 2023-05-27 10:18 | Inpatient (IN) | payer MEDICARE, OTHER ==
[2023-05-27 12:26] LABS: Glucose,Whole Blood 126 mg/dL (70-110)
[2023-05-27] MEDS ORDERED: ALBUTEROL HFA INHALER INHALATION PRN (13:18)
[2023-05-27] MEDS ORDERED: SODIUM CHLORIDE 0.9% 1,000 ML IV SCH ×2 (14:30)
[2023-05-27 15:04] LABS: Basophils % (A) 0 %; Eosinophils % (A) 0 %; HCT 46.4 % (39.0-53.0); HGB 14.9 gm/dL (13.0-17.5); Lymphocytes % (A) 6 %; MCV 87.5 fL (80.0-100.0); Monocytes # (A) 0.6 k/uL (0-1.0); Monocytes % (A) 4 %; Neutrophils # (A) 13.8 k/uL (1.3-7.7); Neutrophils % (A) 90 %; Platelet Count 222 k/uL (150-450); RDW 14.9 % (11.5-15.5); WBC 15.4 k/uL (3.8-10.6)
[2023-05-27] MEDS ORDERED: LIDOCAINE 1% INJ 10MG/ML (20 ML MDV) ONE (15:17)
[2023-05-27 15:21] LABS: ALT 24 U/L (4-49); AST 20 U/L (17-59); African American GFR (CKD) >90 (>60 ml/min/1.73 sqM); Albumin 3.7 g/dL (3.5-5.0); Alkaline Phosphatase 67 U/L (38-126); Anion Gap 5 mmol/L; Blood Urea Nitrogen 21 mg/dL (9-20); Calcium 8.8 mg/dL (8.4-10.2); Carbon Dioxide 24 mmol/L (22-30); Chloride 110 mmol/L (98-107); Glucose 130 mg/dL (74-99); Non-African American GFR(CKD) 84 (>60 ml/min/1.73 sqM); Potassium 4.2 mmol/L (3.5-5.1); Sodium 139 mmol/L (137-145); Total Bilirubin 1.4 mg/dL (0.2-1.3); Total Protein 6.5 g/dL (6.3-8.2)
[2023-05-27] MEDS ORDERED: fentaNYL (PF) 50 MCG/ML 2 ML AMP ONE (15:26)
[2023-05-27] MEDS: MIDAZOLAM 2 MG/2 ML VIAL IVP ONE (15:31)
[2023-05-27] MEDS: fentaNYL (PF) 50 MCG/1 ML VIAL IVP ONE (15:31)
[2023-05-27 15:35] LABS: Partial Thromboplastin Time 63.4 sec (22.0-30.0); Prothrombin Time 10.9 sec (10.0-12.5)
[2023-05-27] MEDS ORDERED: HEPARIN SODIUM 1,000 UN/ML (10ML VL) ONE (15:42)
[2023-05-27] MEDS: ALTEPLASE 2 MG VIAL (CATHFLO) MISCELLANE ONE (16:00)
[2023-05-27] MEDS: SODIUM CHLORIDE 0.9% 500 ML 500 ML IV ONE (16:01)
--- NOTE | 2023-05-27 16:09 | P.PCN ---
Description of Procedure: PROCEDURES PERFORMED: Bilateral EKOS catheter placement and intraarterial TPA administration INDICATION: Bilateral PE with right heart strain, pulmonary hypertension HISTORY: Patient is a pleasant 68-year-old male who has been having some increased dyspnea over the last 1-2 weeks. He presented to [facility] was found to be hypoxic and found to have pulmonary embolism. Echocardiogram as well as CAT scan did show evidence of right ventricular dilation which was persistent and therefore recommended to undergo Ekos placement. PROCEDURE: After the risks, benefits and alternatives of the above mentioned procedure explained in detail with the patient, informed consent was obtained. Patient was taken to the catheterization lab and prepped and draped in usual fashion. 1% lidocaine was used to anesthetize the right femoral area. 2 x 6- Turkish sheath was placed in the right femoral artery using modified Seldinger t echnique and ultrasound guidance. Next using a 5-Turkish FR4 catheter and a 0.035 stiff glide the FR4 catheter was advanced into the right and then left middle segmental pulmonary artery. Next the EKOS catheter was then advanced into the right and then a second EKOS catheter was advanced into the left pulmonary artery. The EKOS device was advanced through the catheter and secured in place bilaterally. 1 mg TPA was administered through the catheter into the right and left pulmonary artery respectively. The patient tolerated the procedure well. Patient was transported back to the post catheterization holding area in stable condition. Conscious Sedation: Patient was monitored under the direct supervision of vision of myself for conscious sedation using Versed and fentanyl for a total duration of 26 minutes FINAL IMPRESSION: 1. Submassive bilateral PE status post bilateral EKOS catheter placement. PLAN: 1. Aggressive risk factor modification per most recent ACC/AHA guidelines. 2. Catheter directed TPA x 6 hrs and EKOS treatment.
--- NOTE | 2023-05-27 16:51 | IR ---
PICC Insertion: EXAMINATION TYPE: IR transcath embolizat therapy Intraoperative/procedural fluoroscopic services were provided. CLINICAL INDICATION:Male, 68 years old with history of bilateral PE, EKOS catheter placement. 3.89Gyc m2; , [facility] Total fluoroscopy time is 3.9 min. DAP: 3.59 Gycm2 Please see the operative/procedural note for further details.
[2023-05-27] MEDS: ALTEPLASE 6 MG in SODIUM CHLORIDE 0.9% 144 ML IV ONE ×3 (17:36→20:44)
[2023-05-27] MEDS: HEPARIN SOD,PORK IN 0.45% NACL 25,000 UNIT in 0.45% NACL 1 250ML.BAG IV SCH ×2 (17:40→17:41)
[2023-05-27] MEDS: SODIUM CHLORIDE 0.9% 1,000 ML IV SCH ×2 (17:42→17:43)
[2023-05-27] MEDS: FLUTICASONE 50MCG/SPRAY NASAL 16GM EA NOSTRIL SCH (17:43)
[2023-05-27] MEDS: PANTOPRAZOLE 40 MG TABLET PO SCH (20:36)
[2023-05-27] MEDS: PROPRANOLOL LA 80 MG CAP.SA.24H PO SCH (20:36)
[2023-05-27] MEDS: ATORVASTATIN 20 MG TAB PO SCH (20:36)
[2023-05-27] MEDS: MELATONIN 5 MG TABLET PO SCH (20:36)
[2023-05-27] MEDS: TOPIRAMATE 100 MG TAB PO SCH (20:36)
[2023-05-27] MEDS: MONTELUKAST 10 MG TAB PO SCH (20:36)
[2023-05-27] MEDS: AZELASTINE 137MCG/SPRAY EA NOSTRIL SCH (20:37)
[2023-05-27] MEDS: ASPIRIN-ACET-CAFF 250-250-65MG 1 EACH TAB PO PRN (20:48)
[2023-05-27] MEDS ORDERED: OMEGA PO SCH (21:00)
[2023-05-27] MEDS ORDERED: FLAXSEED OIL PO SCH (21:00)
--- NOTE | 2023-05-27 22:58 | P.HPIM ---
History of Present Illness H&P Date: 05/27/23 Jose Ash, is a 68-year-old male who presented to [facility] emergency room with a chief complaint of worsening shortness of breath, he was evaluated in the emergency room, preliminary diagnosis was acute exacerbation of COPD, he was admitted to medical floor, and was started on IV Solu-Medrol and inhaled bronchodilators, in addition patient had a computed tomography scan angiogram of the chest that was suspicious for pulmonary embolism, patient was started on IV heparin, he was evaluated by pulmonary and cardiology, repeat computed tomography scan angiogram of the chest was done and was positive for pulmonary embolism, echocardiogram was done and revealed evidence of right heart strain, patient was transferred to [facility] for further intervention. Past Medical History Past Medical History: COPD, GERD/Reflux, Hypertension, Sleep Apnea/CPAP/BIPAP Additional Past Medical History / Comment(s): sleep apnea (no machine), kidney stones, frequent migraines, hx of viral hepatitis ., hx of seizures with injections- spouse has a "shot rual device" to use prior . History of Any Multi-Drug Resistant Organisms: None Reported Past Surgical History: Tonsillectomy Additional Past Surgical History / Comment(s): oral surgery for removal of teeth, tonsills (child) Past Anesthesia/Blood Transfusion Reactions: No Reported Reaction Past Psychological History: No Psychological Hx Reported Smoking Status: Former smoker Past Alcohol Use History: None Reported Additional Past Alcohol Use History / Comment(s): quit smoking at 54 years old, hx of 1ppd , smoked approx 5 years per spouse Past Drug Use History: Marijuana Additional Drug Use History / Comment(s): smokes marijuana for nausea - Past Family History Father Family Medical History: Unable to Obtain Mother Additional Family Medical History / Comment(s): Cerebral Palsey Medications and Allergies Home Medications Medication Instructions Recorded Confirmed Type Aspirin/Acetaminophen/Caffeine 2 - 3 tab PO DIRECTED PRN 06/06/17 05/27/23 History [Excedrin Migraine Caplet] Topiramate [Topamax] 100 mg PO HS 11/01/18 05/27/23 History Albuterol Sulfate [Albuterol 2 puff INHALATION RT-Q4H PRN 11/18/22 05/27/23 History Sulfate Hfa] Atorvastatin [Lipitor] 20 mg PO HS 11/18/22 05/27/23 History Azelastine HCl [Astepro] 2 spray EA NOSTRIL BID 11/18/22 05/27/23 History Fluticasone/Umeclidin/Vilanter 1 puff INHALATION RT-DAILY 11/18/22 05/27/23 History [Trelegy Ellipta 200-62.5-25] Ibuprofen [Motrin] 800 mg PO Q8H PRN 11/18/22 05/27/23 History Montelukast [Singulair] 10 mg PO HS 11/18/22 05/27/23 History Omeprazole [PriLOSEC] 40 mg PO HS 11/18/22 05/27/23 History Flaxseed Oil/[place]-3 1400mg/700mg 1 cap PO HS 05/27/23 05/27/23 History Levocetirizine Dihydrochloride 5 mg PO DAILY 05/27/23 05/27/23 History [Xyzal] Melatonin 10 mg PO HS 05/27/23 05/27/23 History [place] Extract 1 - 2 tab PO DAILY 05/27/23 05/27/23 History Propranolol LA [Inderal LA] 80 mg PO HS 05/27/23 05/27/23 History Allergies Allergy/AdvReac Type Severity Reaction Status Date / Time tetracycline Allergy violent Verified 05/27/23 13:07 hops AdvReac Severe beer hops Verified 05/27/23 13:07 allergy- severe migraines, nausea hydrocodone [From [place]] AdvReac Nausea & Verified 05/27/23 13:07 Vomiting Physical Exam In general patient is alert and oriented x 3 in no distress HEENT head normocephalic and atraumatic Neck is supple no JVD no goiter no lymphadenopathy no carotid bruit Chest examination is clear to auscultation no crackles no wheezing Cardiac exam reveals regular heart sounds S1 and S2 no gallops no murmurs Abdomen is soft nontender no organomegaly with normal bowel sounds Extremity exam reveals no edema no cyanosis or clubbing Neurological examination reveals no gross focal deficits Results CBC & Chem 7: 05/27/23 14:52 05/27/23 14:52 Labs: Abnormal Lab Results - Last 24 Hours (Table) 05/27/23 Range/Units 12:25 POC Glucose (mg/dL) 126 H (70-110) mg/dL Assessment and Plan Plan: acute bilateral pulmonary embolism, with right heart strain, transferred from [facility] for bilateral EKOS catheter placement and TPA infusion acute exacerbation of COPD Underlying history of hypertension Underlying history of hyperlipidemia
[2023-05-27 23:30] LABS: Basophils % (A) 0 %; Eosinophils % (A) 0 %; HCT 44.1 % (39.0-53.0); HGB 13.8 gm/dL (13.0-17.5); Lymphocytes # (A) 1.3 k/uL (1.0-4.8); Lymphocytes % (A) 8 %; MCH 27.7 pg (25.0-35.0); MCHC 31.2 g/dL (31.0-37.0); MCV 88.7 fL (80.0-100.0); Mean Platelet Volume 7.5; Monocytes # (A) 1.2 k/uL (0-1.0); Monocytes % (A) 8 %; Neutrophils # (A) 13.6 k/uL (1.3-7.7); Neutrophils % (A) 83 %; Platelet Count 194 k/uL (150-450); RBC 4.97 m/uL (4.30-5.90); RDW 14.7 % (11.5-15.5); WBC 16.3 k/uL (3.8-10.6)
[2023-05-27] MEDS: IBUPROFEN 800 MG TAB PO PRN (23:52)
[2023-05-28 05:25] LABS: Basophils % (A) 0 %; Eosinophils % (A) 0 %; HCT 42.6 % (39.0-53.0); HGB 13.5 gm/dL (13.0-17.5); Hypochromasia Slight; Lymphocytes # (A) 1.9 k/uL (1.0-4.8); Lymphocytes % (A) 12 %; MCH 28.2 pg (25.0-35.0); MCHC 31.8 g/dL (31.0-37.0); MCV 88.8 fL (80.0-100.0); Mean Platelet Volume 7.7; Monocytes # (A) 1.3 k/uL (0-1.0); Monocytes % (A) 9 %; Neutrophils # (A) 11.7 k/uL (1.3-7.7); Neutrophils % (A) 78 %; Platelet Count 181 k/uL (150-450); RDW 14.8 % (11.5-15.5); WBC 15.1 k/uL (3.8-10.6)
[2023-05-28 05:37] LABS: ALT 20 U/L (4-49); AST 18 U/L (17-59); African American GFR (CKD) >90 (>60 ml/min/1.73 sqM); Albumin 3.2 g/dL (3.5-5.0); Alkaline Phosphatase 59 U/L (38-126); Anion Gap 6 mmol/L; Blood Urea Nitrogen 17 mg/dL (9-20); Calcium 8.4 mg/dL (8.4-10.2); Carbon Dioxide 20 mmol/L (22-30); Chloride 111 mmol/L (98-107); Glucose 89 mg/dL (74-99); Non-African American GFR(CKD) 88 (>60 ml/min/1.73 sqM); Potassium 3.9 mmol/L (3.5-5.1); Sodium 137 mmol/L (137-145); Total Bilirubin 1.5 mg/dL (0.2-1.3); Total Protein 5.8 g/dL (6.3-8.2)
[2023-05-28] MEDS ORDERED: Potassium Replacement Protocol 1 EACH MISC MISCELLANE PRN (06:41)
[2023-05-28] MEDS: SYMBICORT 160-4.5 MCG INHALER INHALATION SCH (09:42)
[2023-05-28] MEDS: IPRATROPIUM 0.5 MG/2.5 ML NEBU INHALATION SCH (09:42)
[2023-05-28] MEDS: LORATADINE 10 MG TAB PO SCH (10:13)
[2023-05-28] MEDS: POTASSIUM CHLORIDE ER 20 MEQ TAB.ER PO SCH (10:13)
--- NOTE | 2023-05-28 12:05 | P.CNPUL ---
History of Present Illness Consult date: 05/28/23 Requesting physician: Anya Carrero Reason for consult: pulmonary embolism Chief complaint: Shortness of breath History of present illness: This is a 68-year-old white male with history of COPD, obstructive sleep apnea syndrome, hypertension, patient was admitted to [facility] initially with symptoms of shortness of breath, initially was diagnosed with COPD. However after admitted to the regular medical floor, patient was placed on bronchodilators and steroids, CT angiogram of the chest was ordered by consultants on the case, and the patient was found to have pulmonary embolism. Started on IV heparin, patient was transferred to [facility], and he underwent Bilateral EKOS catheter placement and intraarterial TPA administration. Apparently the patient had bilateral PE with right heart strain and pulmonary hypertension, after his procedure, patient was admitted to the [facility], and I was asked to see him in consultation. During my evaluation, the patient had no shortness of breath, he had mostly headache, no blurred vision no dizziness no nausea no vomiting. Review of Systems REVIEW OF SYSTEMS: CONSTITUTIONAL: Negative. EYES: Negative. ENT: Negative. CARDIAC: Negative. PULMONARY: As noted in HPI GI: Negative. GENITOURINARY: Negative. MUSCULOSKELETAL: Negative. SKIN: Negative. NEUROPSYCH: Negative. ENDOCRINE: Negative. HEMATOLOGIC: Negative. Past Medical History Past Medical History: COPD, GERD/Reflux, Hypertension, Sleep Apnea/CPAP/BIPAP Additional Past Medical History / Comment(s): sleep apnea (no machine), kidney stones, frequent migraines, hx of viral hepatitis ., hx of seizures with injections- spouse has a "shot raul device" to use prior . History of Any Multi-Drug Resistant Organisms: None Reported Past Surgical History: Tonsillectomy Additional Past Surgical History / Comment(s): oral surgery for removal of teeth, tonsills (child) Past Anesthesia/Blood Transfusion Reactions: No Reported Reaction Past Psychological History: No Psychological Hx Reported Smoking Status: Former smoker Past Alcohol Use History: None Reported Additional Past Alcohol Use History / Comment(s): quit smoking at 54 years old, hx of 1ppd , smoked approx 5 years per spouse Past Drug Use History: Marijuana Additional Drug Use History / Comment(s): smokes marijuana for nausea - Past Family History Father Family Medical History: Unable to Obtain Mother Family Medical History: COPD, Hypertension Additional Family Medical History / Comment(s): Cerebral Palsey Medications and Allergies Home Medications Medication Instructions Recorded Confirmed Type Aspirin/Acetaminophen/Caffeine 2 - 3 tab PO DIRECTED PRN 06/06/17 05/27/23 History [Excedrin Migraine Caplet] Topiramate [Topamax] 100 mg PO HS 11/01/18 05/27/23 History Albuterol Sulfate [Albuterol 2 puff INHALATION RT-Q4H PRN 11/18/22 05/27/23 History Sulfate Hfa] Atorvastatin [Lipitor] 20 mg PO HS 11/18/22 05/27/23 History Azelastine HCl [Astepro] 2 spray EA NOSTRIL BID 11/18/22 05/27/23 History Fluticasone/Umeclidin/Vilanter 1 puff INHALATION RT-DAILY 11/18/22 05/27/23 History [Trelegy Ellipta 200-62.5-25] Ibuprofen [Motrin] 800 mg PO Q8H PRN 11/18/22 05/27/23 History Montelukast [Singulair] 10 mg PO HS 11/18/22 05/27/23 History Omeprazole [PriLOSEC] 40 mg PO HS 11/18/22 05/27/23 History Flaxseed Oil/[place]-3 1400mg/700mg 1 cap PO HS 05/27/23 05/27/23 History Levocetirizine Dihydrochloride 5 mg PO DAILY 05/27/23 05/27/23 History [Xyzal] Melatonin 10 mg PO HS 05/27/23 05/27/23 History [place] Extract 1 - 2 tab PO DAILY 05/27/23 05/27/23 History Propranolol LA [Inderal LA] 80 mg PO HS 05/27/23 05/27/23 History Allergies Allergy/AdvReac Type Severity Reaction Status Date / Time tetracycline Allergy violent Verified 05/27/23 13:07 hops AdvReac Severe beer hops Verified 05/27/23 13:07 allergy- severe migraines, nausea hydrocodone [From [place]] AdvReac Nausea & Verified 05/27/23 13:07 Vomiting Physical Exam Vitals: Vital Signs Temp Pulse Resp BP Pulse Ox 05/28/23 11:00 74 25 H 111/78 91 L 05/28/23 10:00 75 30 H 128/90 92 L 05/28/23 09:00 71 24 116/81 93 L 05/28/23 08:00 97.6 F 71 19 121/84 93 L 05/28/23 07:00 64 18 127/87 96 05/28/23 06:00 67 20 100/81 95 05/28/23 05:00 71 12 114/86 96 05/28/23 04:00 65 19 130/103 95 05/28/23 03:30 63 19 130/103 95 05/28/23 03:00 70 21 129/89 95 05/28/23 02:30 18 129/89 95 05/28/23 02:00 71 20 130/89 95 05/28/23 01:30 65 14 131/93 96 05/28/23 01:00 66 128/91 95 05/28/23 00:30 68 13 125/88 96 05/28/23 00:00 97 F L 66 28 H 131/94 96 05/27/23 23:30 65 23 113/91 96 05/27/23 23:00 70 25 H 124/86 96 05/27/23 22:30 69 22 95 05/27/23 22:00 24 120/92 94 L 05/27/23 21:30 95 121/79 96 05/27/23 21:00 17 106/79 96 05/27/23 20:30 89 16 112/80 94 L 05/27/23 20:00 79 22 95 05/27/23 19:30 85 13 95 05/27/23 19:00 26 H 120/87 95 05/27/23 18:30 86 56 H 120/82 95 05/27/23 18:00 74 22 120/82 93 L 05/27/23 17:30 74 15 122/84 94 L 05/27/23 17:00 71 21 127/90 95 05/27/23 15:30 126/89 05/27/23 15:00 70 16 128/81 94 L 05/27/23 14:30 65 20 122/86 94 L 05/27/23 14:00 68 25 H 116/84 94 L 05/27/23 13:30 23 126/89 95 05/27/23 13:00 28 H 125/89 95 05/27/23 12:30 68 26 H 95/47 96 05/27/23 12:24 23 133/93 95 Intake and Output 05/27/23 05/28/23 05/28/23 22:59 06:59 14:59 Intake Total 1125.042 913.750 600.0 Output Total 1050 1700 1350 Balance 75.042 -786.250 -750.0 Intake: IV 725.0 800.0 600.0 Alteplase 6 mg In Sodium 125 Chloride 0.9% 144 ml @ 1 MG/HR 25 mls/hr IV .Q6H [facility] Rx#:[id number] Alteplase 6 mg In Sodium 125 Chloride 0.9% 144 ml @ 1 MG/HR 25 mls/hr IV .Q6H [facility] Rx#:[id number] Heparin Sod,Pork in 0.45% 12.5 20.0 12.5 NaCl 25,000 unit In 0.45 % NaCl 1 250ml.bag @ 2.5 mls/hr IV .Q24H [facility] Rx#: [id number] Heparin Sod,Pork in 0.45% 12.5 20.0 12.5 NaCl 25,000 unit In 0.45 % NaCl 1 250ml.bag @ 2.5 mls/hr IV .Q24H [facility] Rx#: [id number] Sodium Chloride 0.9% 1, 175 280 175 000 ml @ 35 mls/hr IV . Q24H [facility] Rx#:[id number] Sodium Chloride 0.9% 1, 175 280 175 000 ml @ 35 mls/hr IV . Q24H [facility] Rx#:[id number] Sodium Chloride 0.9% @ 25 200 225 ml/hr Intake, IV Titration 0.042 113.750 Amount Alteplase 6 mg In Sodium 57.083 Chloride 0.9% 144 ml @ 1 MG/HR 25 mls/hr IV .Q6H [facility] Rx#:[id number] Alteplase 6 mg In Sodium 56.667 Chloride 0.9% 144 ml @ 1 MG/HR 25 mls/hr IV .Q6H [facility] Rx#:[id number] Heparin Sod,Pork in 0.45% 0.042 NaCl 25,000 unit In 0.45 % NaCl 1 250ml.bag @ 2.5 mls/hr IV .Q24H [facility] Rx#: [id number] Oral 400 Output: Urine 1050 1700 1350 Other: Voiding Method Urinal Urinal # Voids 1 1 Weight 86.7 kg General: Reveals 68-year-old white male obese in no distress : Atraumatic, normocephalic Skin: Skin is warm and dry and no rashes or lesions are noted. Eye: Pupils are equal, round and reactive to light, extra-ocular movements are intact; there is normal conjunctiva bilaterally. Ears, nose, mouth and throat: There are moist mucous membranes and no oral lesions. Neck: The neck is supple, there is no tenderness or JVD. Cardiovascular: There is a regular rate and rhythm. No murmur, rub or gallop is appreciated. Respiratory: Clear bilaterally no crackles rhonchi or wheezes Gastrointestinal: Soft, non-distended, non-tender abdomen without masses or organomegaly noted. There is no rebound or guarding present. Bowel sounds are unremarkable. Back: There is no tenderness to palpation in the midline. There is no obvious deformity. Musculoskeletal: Normal ROM, no tenderness, There is no pedal edema. There is no calf tenderness or swelling. No cords were appreciated. Neurological: CN II-XII intact, Cranial nerves III through XII are intact. There are no obvious motor or sensory deficits. Coordination appears grossly intact. Speech is normal. Psychiatric: Cooperative, appropriate mood & affect, normal judgment. Results - Laboratory Findings CBC and BMP: 05/28/23 04:51 05/28/23 04:51 PT/INR, D-dimer PT 10.9 sec (10.0-12.5) 05/27/23 14:52 INR 1.0 (<1.2) 05/27/23 14:52 Abnormal lab findings: Abnormal Labs 05/27/23 05/27/23 05/27/23 12:25 14:52 14:52 WBC 15.4 H Neutrophils # 13.8 H Monocytes # APTT Chloride 110 H Carbon Dioxide BUN 21 H Glucose 130 H POC Glucose (mg/dL) 126 H Total Bilirubin 1.4 H Total Protein Albumin 05/27/23 05/27/23 05/28/23 14:52 23:03 04:51 WBC 16.3 H 15.1 H Neutrophils # 13.6 H 11.7 H Monocytes # 1.2 H 1.3 H APTT 63.4 H Chloride Carbon Dioxide BUN Glucose POC Glucose (mg/dL) Total Bilirubin Total Protein Albumin 05/28/23 04:51 WBC Neutrophils # Monocytes # APTT Chloride 111 H Carbon Dioxide 20 L BUN Glucose POC Glucose (mg/dL) Total Bilirubin 1.5 H Total Protein 5.8 L Albumin 3.2 L Assessment and Plan Assessment: Impression: Submassive bilateral pulmonary embolism, status post bilateral EKOS catheter placement History of underlying COPD presently inactive Benign essential hypertension Dyslipidemia Recommendation: Continue present supportive care measures Continue bronchodilators Transition patient to oral anticoagulation therapy after EKOS thrombolysis, this will be addressed by cardiology on the case. Considering the patient had unprovoked thromboembolic disease, I believe the patient should be on lifetime anticoagulation therapy. Will continue to follow Time with Patient: Greater than 30
--- NOTE | 2023-05-28 14:21 | P.PN ---
Subjective Progress Note Date: 05/28/23 Jose Ash, is a 68-year-old male who presented to [facility] emergency room with a chief complaint of worsening shortness of breath, he was evaluated in the emergency room, preliminary diagnosis was acute exacerbation of COPD, he was admitted to medical floor, and was started on IV Solu-Medrol and inhaled bronchodilators, in addition patient had a computed tomography scan angiogram of the chest that was suspicious for pulmonary embolism, patient was started on IV heparin, he was evaluated by pulmonary and cardiology, repeat computed tomography scan angiogram of the chest was done and was positive for pulmonary embolism, echocardiogram was done and revealed evidence of right heart strain, patient was transferred to [facility] for further intervention. 05/27. Patient seen and examined denies any chest pain. Denies shortness of breath. Denies any abdominal pain. No complaint of nausea or vomiting. REVIEW OF SYSTEMS: CONSTITUTIONAL: No fever, no malaise,. CARDIOVASCULAR: No chest pain, no palpitations, no syncope. PULMONARY: No shortness of breath, no cough, GASTROINTESTINAL: No diarrhea, no nausea, no vomiting, no abdominal pain. NEUROLOGICAL: No headaches, no weakness, PHYSICAL EXAMINATION: GENERAL: The patient is alert and oriented x3, not in any acute distress. Well developed, well nourished. HEENT: Pupils are round and equally reacting to light. EOMI. No scleral icterus. No conjunctival pallor. Normocephalic, atraumatic. No pharyngeal erythema. No thyromegaly. CARDIOVASCULAR: S1 and S2 present. No murmurs, rubs, or gallops. PULMONARY: Chest is clear to auscultation, no wheezing or crackles. ABDOMEN: Soft, nontender, nondistended, normoactive bowel sounds. No palpable organomegaly. MUSCULOSKELETAL: No joint swelling or deformity. EXTREMITIES: No cyanosis, clubbing, or pedal edema. NEUROLOGICAL: Gross neurological examination did not reveal any focal deficits. SKIN: No rashes. Assessment and plan acute bilateral pulmonary embolism, with right heart strain acute exacerbation of COPD Underlying history of hypertension Underlying history of hyperlipidemia Monitor vital signs Monitor CBC Monitor CMP Continue telemetry monitoring Encourage use of incentive spirometer S/p bilateral EKOS catheter placement and tPA infusion Patient needing oral anticoagulation once okay with cardiology. Critical care following Labs and medication were reviewed.. Continue same treatment. Continue with symptomatic treatment. Resume home medication. Monitor labs and vitals. DVT and GI prophylaxis. Further recommendations as per clinical course of the patient Dictation was produced using [employer] dictation software. please excuse any grammatical, word or spelling errors. Objective - Vital Signs Vital signs: Vital Signs Temp 97.6 F 05/28/23 08:00 Pulse 70 05/28/23 13:15 Resp 24 05/28/23 13:15 BP 101/71 05/28/23 13:15 Pulse Ox 93 L 05/28/23 13:15 FiO2 Intake & Output 05/27/23 05/28/23 05/28/23 18:59 06:59 18:59 Intake Total 514.233 1064.750 1470.0 Output Total 600 2150 1575 Balance 25.042 -736.250 -105 Weight 86.183 kg 86.7 kg Intake: IV 225.0 1300.0 850.0 Alteplase 6 mg In Sodium 25 100 Chloride 0.9% 144 ml @ 1 MG/HR 25 mls/hr IV .Q6H [facility] Rx#:[id number] Alteplase 6 mg In Sodium 25 100 Chloride 0.9% 144 ml @ 1 MG/HR 25 mls/hr IV .Q6H [facility] Rx#:[id number] Heparin Sod,Pork in 0.45% 2.5 30.0 17.5 NaCl 25,000 unit In 0.45 % NaCl 1 250ml.bag @ 2.5 mls/hr IV .Q24H [facility] Rx#: [id number] Heparin Sod,Pork in 0.45% 2.5 30.0 17.5 NaCl 25,000 unit In 0.45 % NaCl 1 250ml.bag @ 2.5 mls/hr IV .Q24H [facility] Rx#: [id number] Sodium Chloride 0.9% 1, 35 420 245 000 ml @ 35 mls/hr IV . Q24H [facility] Rx#:[id number] Sodium Chloride 0.9% 1, 35 420 245 000 ml @ 35 mls/hr IV . Q24H [facility] Rx#:[id number] Sodium Chloride 0.9% @ 25 200 325 ml/hr Intake, IV Titration 0.042 113.750 Amount Alteplase 6 mg In Sodium 57.083 Chloride 0.9% 144 ml @ 1 MG/HR 25 mls/hr IV .Q6H [facility] Rx#:[id number] Alteplase 6 mg In Sodium 56.667 Chloride 0.9% 144 ml @ 1 MG/HR 25 mls/hr IV .Q6H [facility] Rx#:[id number] Heparin Sod,Pork in 0.45% 0.042 NaCl 25,000 unit In 0.45 % NaCl 1 250ml.bag @ 2.5 mls/hr IV .Q24H [facility] Rx#: [id number] Oral 400 620 Output: Urine 600 2150 1575 Other: Voiding Method Urinal Urinal # Voids 1 - Labs CBC & Chem 7: 05/28/23 04:51 05/28/23 04:51 Labs: Abnormal Lab Results - Last 24 Hours (Table) 05/27/23 05/27/23 05/27/23 Range/Units 14:52 14:52 14:52 WBC 15.4 H (3.8-10.6) k/uL Neutrophils # 13.8 H (1.3-7.7) k/uL Monocytes # (0-1.0) k/uL APTT 63.4 H (22.0-30.0) sec Chloride 110 H (98-107) mmol/L Carbon Dioxide (22-30) mmol/L BUN 21 H (9-20) mg/dL Glucose 130 H (74-99) mg/dL Total Bilirubin 1.4 H (0.2-1.3) mg/dL Total Protein (6.3-8.2) g/dL Albumin (3.5-5.0) g/dL 05/27/23 05/28/23 05/28/23 Range/Units 23:03 04:51 04:51 WBC 16.3 H 15.1 H (3.8-10.6) k/uL Neutrophils # 13.6 H 11.7 H (1.3-7.7) k/uL Monocytes # 1.2 H 1.3 H (0-1.0) k/uL APTT (22.0-30.0) sec Chloride 111 H (98-107) mmol/L Carbon Dioxide 20 L (22-30) mmol/L BUN (9-20) mg/dL Glucose (74-99) mg/dL Total Bilirubin 1.5 H (0.2-1.3) mg/dL Total Protein 5.8 L (6.3-8.2) g/dL Albumin 3.2 L (3.5-5.0) g/dL
--- NOTE | 2023-05-28 19:45 | P.PN ---
Subjective Progress Note Date: 05/28/23 SUBJECTIVE: 68-year-old admitted with 1 to 2 weeks of dyspnea. At [facility] he was found to have pulmonary embolism with high clot burden on CT scan. For this he underwent EKOS procedure by Dr. Whitten last night. He is completed 6 hours of infusion via EKOS catheter. Today I removed his EKOS catheter and the venous sheath. There was patent hemostasis with manual hold. Patient reports much better in terms of resolution of his shortness of breath. He denies any palpitations lightheadedness or dizziness. Hemodynamically stable, blood pressure 182/69, pulse 94, sinus rhythm, PHYSICAL EXAMINATION Head: Normocephalic. Eyes: Sclerae nonicteric. Neck: Brisk carotid upstroke, no jugular venous distention. Lungs: Clear to auscultation. Heart: Regular rate and rhythm, S1-S2, no S3, no murmur or rub. Abdomen: Soft nontender, bowel sounds present, Extremities: No edema, Neuro: Alert, oriented, no focal neurological deficits. Detailed neuro exam was not performed. ASSESSMENT Submassive PE s/p EKOS COPD Hypertension Hyperlipidemia Obesity PLAN Discontinue IV heparin drip. Discontinue EKOS catheter Start Eliquis acute PE dosing with taper Continue to monitor hemodynamics. Watch for signs of bleeding. Okay to be transferred out of ICU Diego Porras MD, FACC, RPVI Thank you for allowing [facility] to participate in this patient's care. Please contact us in case of any followup questions. Objective - Vital Signs Vital signs: Vital Signs Temp 97.6 F 05/28/23 08:00 Pulse 94 05/28/23 17:40 Resp 17 05/28/23 17:40 BP 118/69 05/28/23 17:40 Pulse Ox 94 L 05/28/23 17:40 FiO2 Intake & Output 05/28/23 05/28/23 05/29/23 06:59 18:59 06:59 Intake Total 3376.068 1346.0 Output Total 2150 1575 Balance -736.250 685 Weight 86.7 kg Intake: IV 1300.0 850.0 Alteplase 6 mg In Sodium 100 Chloride 0.9% 144 ml @ 1 MG/HR 25 mls/hr IV .Q6H [facility] Rx#:[id number] Alteplase 6 mg In Sodium 100 Chloride 0.9% 144 ml @ 1 MG/HR 25 mls/hr IV .Q6H [facility] Rx#:[id number] Heparin Sod,Pork in 0.45% 30.0 17.5 NaCl 25,000 unit In 0.45 % NaCl 1 250ml.bag @ 2.5 mls/hr IV .Q24H [facility] Rx#: [id number] Heparin Sod,Pork in 0.45% 30.0 17.5 NaCl 25,000 unit In 0.45 % NaCl 1 250ml.bag @ 2.5 mls/hr IV .Q24H [facility] Rx#: [id number] Sodium Chloride 0.9% 1, 420 245 000 ml @ 35 mls/hr IV . Q24H [facility] Rx#:[id number] Sodium Chloride 0.9% 1, 420 245 000 ml @ 35 mls/hr IV . Q24H [facility] Rx#:[id number] Sodium Chloride 0.9% @ 25 200 325 ml/hr Intake, IV Titration 113.750 Amount Alteplase 6 mg In Sodium 57.083 Chloride 0.9% 144 ml @ 1 MG/HR 25 mls/hr IV .Q6H [facility] Rx#:[id number] Alteplase 6 mg In Sodium 56.667 Chloride 0.9% 144 ml @ 1 MG/HR 25 mls/hr IV .Q6H [facility] Rx#:[id number] Oral 1410 Output: Urine 2150 1575 Other: Voiding Method Urinal Urinal # Voids 1 - Labs CBC & Chem 7: 05/28/23 04:51 05/28/23 04:51 Labs: Abnormal Lab Results - Last 24 Hours (Table) 05/27/23 05/28/23 05/28/23 Range/Units 23:03 04:51 04:51 WBC 16.3 H 15.1 H (3.8-10.6) k/uL Neutrophils # 13.6 H 11.7 H (1.3-7.7) k/uL Monocytes # 1.2 H 1.3 H (0-1.0) k/uL Chloride 111 H (98-107) mmol/L Carbon Dioxide 20 L (22-30) mmol/L Total Bilirubin 1.5 H (0.2-1.3) mg/dL Total Protein 5.8 L (6.3-8.2) g/dL Albumin 3.2 L (3.5-5.0) g/dL
[2023-05-28] MEDS: Apixaban Initiation Dose--VTE 5 MG TAB PO SCH (20:26)
--- NOTE | 2023-05-29 08:55 | P.PN ---
Subjective Progress Note Date: 05/29/23 SUBJECTIVE: 68-year-old admitted with 1 to 2 weeks of dyspnea. At [facility] he was found to have pulmonary embolism with high clot burden on CT scan. For this he underwent EKOS procedure by Dr. Whitten He is completed 6 hours of infusion via EKOS catheter. Yesterday I removed his EKOS catheter and the venous sheath. There was patent hemostasis with manual hold. Patient has been doing well. He is tolerating oral Eliquis without any concerns of bleeding at this time. ECG shows sinus rhythm. Telemetry does not show any significant ectopic beats. He has not had any atrial fibrillation during this admission. Will obtain a CBC and BMP levels. If okay he should be cleared from ca rdiovascular standpoint to be discharged. PHYSICAL EXAMINATION Head: Normocephalic. Eyes: Sclerae nonicteric. Neck: Brisk carotid upstroke, no jugular venous distention. Lungs: Clear to auscultation. Heart: Regular rate and rhythm, S1-S2, no S3, no murmur or rub. Abdomen: Soft nontender, bowel sounds present, Extremities: No edema, Neuro: Alert, oriented, no focal neurological deficits. Detailed neuro exam was not performed. ASSESSMENT Submassive PE s/p EKOS COPD Hypertension Hyperlipidemia Obesity Migraine headache on propanolol PLAN Start Eliquis acute PE dosing with taper No concerns of bleeding. ECG shows normal sinus rhythm. No concerns of atrial fibrillation or any other arrhythmias on telemetry Patient is cleared to be discharged from cardiovascular standpoint. Make sure his CBC BMP is within normal ranges prior to discharge. Patient should follow- up outpatient to get evaluated for the etiology of his pulmonary embolism and VTE. Secondary causes and underlying malignancy should be ruled out on outpatient basis with his PCP and primary sign poster. Diego Porras MD, FACC, RPVI Thank you for allowing [facility] to participate in thi s patient's care. Please contact us in case of any followup questions. Objective - Vital Signs Vital signs: Vital Signs Temp 98.4 F 05/29/23 07:42 Pulse 81 05/29/23 07:42 Resp 20 05/29/23 07:42 BP 102/58 05/29/23 07:42 Pulse Ox 94 L 05/29/23 07:42 FiO2 Intake & Output 05/28/23 05/29/23 05/29/23 18:59 06:59 18:59 Intake Total 2260.0 600 Output Total 1575 Balance 685 600 Intake: IV 850.0 Heparin Sod,Pork in 0.45% 17.5 NaCl 25,000 unit In 0.45 % NaCl 1 250ml.bag @ 2.5 mls/hr IV .Q24H [facility] Rx#: [id number] Heparin Sod,Pork in 0.45% 17.5 NaCl 25,000 unit In 0.45 % NaCl 1 250ml.bag @ 2.5 mls/hr IV .Q24H [facility] Rx#: [id number] Sodium Chloride 0.9% 1, 245 000 ml @ 35 mls/hr IV . Q24H [facility] Rx#:[id number] Sodium Chloride 0.9% 1, 245 000 ml @ 35 mls/hr IV . Q24H [facility] Rx#:[id number] Sodium Chloride 0.9% @ 25 325 ml/hr Oral 1410 600 Output: Urine 1575 Other: Voiding Method Urinal Urinal # Voids 2 - Labs CBC & Chem 7: 05/28/23 04:51 05/28/23 04:51
[2023-05-29 10:26] LABS: ALT 24 U/L (4-49); AST 18 U/L (17-59); African American GFR (CKD) >90 (>60 ml/min/1.73 sqM); Alkaline Phosphatase 58 U/L (38-126); Anion Gap 9 mmol/L; Blood Urea Nitrogen 15 mg/dL (9-20); Calcium 8.5 mg/dL (8.4-10.2); Carbon Dioxide 20 mmol/L (22-30); Chloride 109 mmol/L (98-107); Glucose 135 mg/dL (74-99); Non-African American GFR(CKD) 88 (>60 ml/min/1.73 sqM); Potassium 3.6 mmol/L (3.5-5.1); Sodium 138 mmol/L (137-145); Total Bilirubin 0.9 mg/dL (0.2-1.3); Total Protein 5.7 g/dL (6.3-8.2)
[2023-05-29 10:42] LABS: Basophils % (A) 0 %; Eosinophils # (A) 0.2 k/uL (0-0.7); Eosinophils % (A) 2 %; HCT 45.4 % (39.0-53.0); HGB 14.2 gm/dL (13.0-17.5); Hypochromasia Slight; Lymphocytes # (A) 1.6 k/uL (1.0-4.8); Lymphocytes % (A) 13 %; MCH 28.2 pg (25.0-35.0); MCHC 31.3 g/dL (31.0-37.0); Mean Platelet Volume 8.1; Monocytes # (A) 0.7 k/uL (0-1.0); Monocytes % (A) 5 %; Neutrophils # (A) 9.5 k/uL (1.3-7.7); Neutrophils % (A) 79 %; Platelet Count 187 k/uL (150-450); RBC 5.04 m/uL (4.30-5.90); RDW 14.8 % (11.5-15.5); WBC 12.1 k/uL (3.8-10.6)
[2023-05-29] MEDS: SODIUM CHLORIDE 0.65% NASAL SPRAY 44 ML BTL NASAL PRN (12:48)
--- NOTE | 2023-05-29 13:04 | P.PN ---
Subjective Progress Note Date: 05/29/23 Jose Ash, is a 68-year-old male who presented to [facility] emergency room with a chief complaint of worsening shortness of breath, he was evaluated in the emergency room, preliminary diagnosis was acute exacerbation of COPD, he was admitted to medical floor, and was started on IV Solu-Medrol and inhaled bronchodilators, in addition patient had a computed tomography scan angiogram of the chest that was suspicious for pulmonary embolism, patient was started on IV heparin, he was evaluated by pulmonary and cardiology, repeat computed tomography scan angiogram of the chest was done and was positive for pulmonary embolism, echocardiogram was done and revealed evidence of right heart strain, patient was transferred to [facility] for further intervention. 05/27. Patient seen and examined denies any chest pain. Denies shortness of breath. Denies any abdominal pain. No complaint of nausea or vomiting. 05/28. Patient seen and examined. Complaining of nasal congestion. Patient has been transition to oral Eliquis. Denies any chest pain. Possible discharge next 24 hours REVIEW OF SYSTEMS: CONSTITUTIONAL: No fever, no malaise,. CARDIOVASCULAR: No chest pain, no palpitations, no syncope. PULMONARY: No shortness of breath, no cough, GASTROINTESTINAL: No diarrhea, no nausea, no vomiting, no abdominal pain. NEUROLOGICAL: No headaches, no weakness, PHYSICAL EXAMINATION: GENERAL: The patient is alert and oriented x3, not in any acute distress. Well d eveloped, well nourished. HEENT: Pupils are round and equally reacting to light. EOMI. No scleral icterus. No conjunctival pallor. Normocephalic, atraumatic. No pharyngeal erythema. No thyromegaly. CARDIOVASCULAR: S1 and S2 present. No murmurs, rubs, or gallops. PULMONARY: Chest is clear to auscultation, no wheezing or crackles. ABDOMEN: Soft, nontender, nondistended, normoactive bowel sounds. No palpable organomegaly. MUSCULOSKELETAL: No joint swelling or deformity. EXTREMITIES: No cyanosis, clubbing, or pedal edema. NEUROLOGICAL: Gross neurological examination did not reveal any focal deficits. SKIN: No rashes. Assessment and plan acute bilateral pulmonary embolism, with right heart strain acute exacerbation of COPD Underlying history of hypertension Underlying history of hyperlipidemia Monitor vital signs Monitor CBC Monitor CMP Continue telemetry monitoring Encourage use of incentive spirometer S/p bilateral EKOS catheter placement and tPA infusion Continue Eliquis 10 mg twice a day for 7 days followed by 5 mg twice a day Critical care following Cardiology following Labs and medication were reviewed.. Continue same treatment. Continue with symptomatic treatment. Resume home medication. Monitor labs and vitals. DVT and GI prophylaxis. Further recommendations as per clinical course of the patient Dictation was produced using [employer] dictation software. please excuse any grammatical, word or spelling errors. Objective - Vital Signs Vital signs: Vital Signs Temp 98.4 F 05/29/23 07:42 Pulse 81 05/29/23 07:42 Resp 20 05/29/23 07:42 BP 102/58 05/29/23 07:42 Pulse Ox 94 L 05/29/23 07:42 FiO2 Intake & Output 05/28/23 05/29/23 05/29/23 18:59 06:59 18:59 Intake Total 2260.0 600 Output Total 1575 Balance 685 600 Intake: IV 850.0 Heparin Sod,Pork in 0.45% 17.5 NaCl 25,000 unit In 0.45 % NaCl 1 250ml.bag @ 2.5 mls/hr IV .Q24H MARIA T Rx#: [id number] Heparin Sod,Pork in 0.45% 17.5 NaCl 25,000 unit In 0.45 % NaCl 1 250ml.bag @ 2.5 mls/hr IV .Q24H MARIA T Rx#: [id number] Sodium Chloride 0.9% 1, 245 000 ml @ 35 mls/hr IV . Q24H MARIA T Rx#:[id number] Sodium Chloride 0.9% 1, 245 000 ml @ 35 mls/hr IV . Q24H MARIA T Rx#:[id number] Sodium Chloride 0.9% @ 25 325 ml/hr Oral 1410 600 Output: Urine 1575 Other: Voiding Method Urinal Urinal Urinal # Voids 2 - Labs CBC & Chem 7: 05/29/23 09:21 05/29/23 09:21
--- NOTE | 2023-05-29 13:33 | P.PN ---
Subjective Progress Note Date: 05/29/23 Principal diagnosis: Acute pulmonary embolism This is a 68-year-old white male with history of COPD, obstructive sleep apnea syndrome, hypertension, patient was admitted to [facility] initially with symptoms of shortness of breath, initially was diagnosed with COPD. However after admitted to the regular medical floor, patient was placed on bronchodilators and steroids, CT angiogram of the chest was ordered by consultants on the case, and the patient was found to have pulmonary embolism. Started on IV heparin, patient was transferred to [facility], and he underwent Bilateral EKOS catheter placement and intraarterial TPA administration. Apparently the patient had bilateral PE with right heart strain and pulmonary hypertension, after his procedure, patient was admitted to the ICU, and I was asked to see him in consultation. During my evaluation, the patient had no shortness of breath, he had mostly headache, no blurred vision no dizziness no nausea no vomiting. Patient was reevaluated today on 04/29/2023, patient is doing well, relatively asymptomatic on room air with O2 sats of 93%, hemodynamically stable, patient is already on Eliquis, following the protocol, I am clearing the patient for discharge if cleared by cardiology. And follow-up on outpatient basis patient was made aware that he needs to be on Eliquis, lifetime therapy Objective - Vital Signs Vital signs: Vital Signs Temp 98.4 F 05/29/23 07:42 Pulse 75 05/29/23 12:00 Resp 24 05/29/23 12:00 BP 120/75 05/29/23 12:00 Pulse Ox 93 L 05/29/23 12:00 FiO2 Intake & Output 05/28/23 05/29/23 05/29/23 18:59 06:59 18:59 Intake Total 2260.0 600 222 Output Total 1575 Balance 685 600 222 Intake: IV 850.0 Heparin Sod,Pork in 0.45% 17.5 NaCl 25,000 unit In 0.45 % NaCl 1 250ml.bag @ 2.5 mls/hr IV .Q24H MARIA T Rx#: [id number] Heparin Sod,Pork in 0.45% 17.5 NaCl 25,000 unit In 0.45 % NaCl 1 250ml.bag @ 2.5 mls/hr IV .Q24H MARIA T Rx#: [id number] Sodium Chloride 0.9% 1, 245 000 ml @ 35 mls/hr IV . Q24H MARIA T Rx#:[id number] Sodium Chloride 0.9% 1, 245 000 ml @ 35 mls/hr IV . Q24H MARIA T Rx#:[id number] Sodium Chloride 0.9% @ 25 325 ml/hr Oral 1410 600 222 Output: Urine 1575 Other: Voiding Method Urinal Urinal Urinal # Voids 2 - Exam General: Reveals 68-year-old white male obese in no distress, on room air : Atraumatic, normocephalic Skin: Skin is warm and dry and no rashes or lesions are noted. Eye: Pupils are equal, round and reactive to light, extra-ocular movements are intact; there is normal conjunctiva bilaterally. Ears, nose, mouth and throat: There are moist mucous membranes and no oral lesions. Neck: The neck is supple, there is no tenderness or JVD. Cardiovascular: There is a regular rate and rhythm. No murmur, rub or gallop is appreciated. Respiratory: Clear bilaterally no crackles rhonchi or wheezes Gastrointestinal: Soft, non-distended, non-tender abdomen without masses or organomegaly noted. There is no rebound or guarding present. Bowel sounds are unremarkable. Back: There is no tenderness to palpation in the midline. There is no obvious deformity. Musculoskeletal: Normal ROM, no tenderness, There is no pedal edema. There is no calf tenderness or swelling. No cords were appreciated. Neurological: CN II-XII intact, Cranial nerves III through XII are intact. There are no obvious motor or sensory deficits. Coordination appears grossly intact. Speech is normal. Psychiatric: Cooperative, appropriate mood & affect, normal judgment. - Labs CBC & Chem 7: 05/29/23 09:21 05/29/23 09:21 Labs: Abnormal Lab Results - Last 24 Hours (Table) 05/29/23 05/29/23 Range/Units 09:21 09:21 WBC 12.1 H (3.8-10.6) k/uL Neutrophils # 9.5 H (1.3-7.7) k/uL Chloride 109 H (98-107) mmol/L Carbon Dioxide 20 L (22-30) mmol/L Glucose 135 H (74-99) mg/dL Total Protein 5.7 L (6.3-8.2) g/dL Albumin 3.0 L (3.5-5.0) g/dL Assessment and Plan Assessment: Impression: Submassive bilateral pulmonary embolism, status post bilateral EKOS catheter placement/EKOS thrombolysis History of underlying COPD presently inactive Benign essential hypertension Dyslipidemia Recommendation: Continue Eliquis as per protocol Will clear the patient for discharge and follow-up on outpatient Time with Patient: Less than 30
[2023-05-30 09:06] VITALS: BP 125/80; RESP 16; TEMP 97.8
[2023-05-30 09:49] VITALS: PULSE 80
--- NOTE | 2023-05-30 23:12 | P.DS ---
Providers Date of admission: 05/27/23 12:10 Attending physician: Anya Carrero Consults: 05/27/23 13:16 Consult Physician Routine Consulting Provider: Rosie Shepherd Consult Reason/Comments: pulmonary embolism Do you want consulting provider notified?: Yes Placement Type Exists?: Yes Primary care physician: Anya Alise [facility] Course: Diagnoses: acute bilateral pulmonary embolism, with right heart strain acute exacerbation of COPD Underlying history of hypertension Underlying history of hyperlipidemia Hospital course: This is a 68-year-old male who presented to [facility] emergency room w ith a chief complaint of worsening shortness of breath, he was evaluated in the emergency room, preliminary diagnosis was acute exacerbation of COPD, he was admitted to medical floor, and was started on IV Solu-Medrol and inhaled bronchodilators, in addition patient had a computed tomography scan angiogram of the chest that was suspicious for pulmonary embolism, patient was started on IV heparin, he was evaluated by pulmonary and cardiology, repeat computed tomography scan angiogram of the chest was done and was positive for submassive pulmonary embolism, echocardiogram was done and revealed evidence of right heart strain, patient was transferred to [facility] for further intervention. Patient currently is lying in chair fully awake and oriented at baseline, he denies any symptom of chest pain or dyspnea. He denies any other new complaints and he is eager to go home today. Patient was upset with the staff when his discharge was delayed. at bedside and discussed the case with her Patient will be discharged on Eliquis 10 mg total time 7 days then lowered to 5 mg twice daily for life, patient and informed and agreeable. We checked his co-pay was $0. Risk and benefits explained extensively including risk of bleeding and he verbalized understanding and acceptance Patient is not on aspirin but uses Excedrin for migraine which has aspirin in it. Patient informed as risk of bleeding. Get up and go test is normal, patient does not need to rehab. Patient was cleared for discharge by all consultants including pulmonary and plug sorter Problems and management plan were discussed with the patient and he verbalized understanding and acceptance Patient was found stable and can be discharged home in guarded prognosis however he needs follow-up as an outpatient. Patient was instructed to follow up with PCP Dr. Mendenhall within one week and patient agrees Patient was instructed to follow-up with precision honing machine operator Dr. Harden in 2 weeks, plug sorter Dr. Barnes in 1 to 2 weeks and automated process operator/oncologist Dr. Lombardi in 1 to 2 weeks and patient and agreed to call and make appointment Physical exam Gen: patient is a AAOx3, no distress CVS: S1-S2, RRR, no murmur Lungs: B/L CTA, no wheezing Abdomen: soft, no distention, no tenderness, positive bowel sounds Extremity: no leg edema or induration Time spent more than 35 minutes Plan - Discharge Summary Discharge Rx Participant: No New Discharge Prescriptions: New Apixaban [Eliquis] 5 mg PO DIRECTED 30 Days #60 tab Continue Aspirin/Acetaminophen/Caffeine [Excedrin Migraine Caplet] 2 - 3 tab PO DIRECTED PRN PRN Reason: Migraine Headache Topiramate [Topamax] 100 mg PO HS Montelukast [Singulair] 10 mg PO HS Melatonin 10 mg PO HS Flaxseed Oil/[place]-3 1400mg/700mg 1 cap PO HS Azelastine HCl [Astepro] 2 spray EA NOSTRIL BID Albuterol Sulfate [Albuterol Sulfate Hfa] 2 puff INHALATION RT-Q4H PRN PRN Reason: Shortness Of Breath Omeprazole [PriLOSEC] 40 mg PO HS Atorvastatin [Lipitor] 20 mg PO HS Fluticasone/Umeclidin/Vilanter [Trelegy Ellipta 200-62.5-25] 1 puff INHALATION RT-DAILY [place] Extract 1 - 2 tab PO DAILY Levocetirizine Dihydrochloride [Xyzal] 5 mg PO DAILY Propranolol LA [Inderal LA] 80 mg PO HS Discontinued Ibuprofen [Motrin] 800 mg PO Q8H PRN PRN Reason: Pain Discharge Medication List Aspirin/Acetaminophen/Caffeine [Excedrin Migraine Caplet] 2 - 3 tab PO DIRE CTED PRN 06/06/17 [History] Topiramate [Topamax] 100 mg PO HS 11/01/18 [History] Albuterol Sulfate [Albuterol Sulfate Hfa] 2 puff INHALATION RT-Q4H PRN 11/18/22 [History] Atorvastatin [Lipitor] 20 mg PO HS 11/18/22 [History] Azelastine HCl [Astepro] 2 spray EA NOSTRIL BID 11/18/22 [History] Fluticasone/Umeclidin/Vilanter [Trelegy Ellipta 200-62.5-25] 1 puff INHALATION RT-DAILY 11/18/22 [History] Montelukast [Singulair] 10 mg PO HS 11/18/22 [History] Omeprazole [PriLOSEC] 40 mg PO HS 11/18/22 [History] Flaxseed Oil/[place]-3 1400mg/700mg 1 cap PO HS 05/27/23 [History] Levocetirizine Dihydrochloride [Xyzal] 5 mg PO DAILY 05/27/23 [History] Melatonin 10 mg PO HS 05/27/23 [History] [place] Extract 1 - 2 tab PO DAILY 05/27/23 [History] Propranolol LA [Inderal LA] 80 mg PO HS 05/27/23 [History] Apixaban [Eliquis] 5 mg PO DIRECTED 30 Days #60 tab 05/29/23 [Rx] Follow up Appointment(s)/Referral(s): Rosie Shepherd MD [STAFF PHYSICIAN] - 06/06/23 9:00 am () Vicente Barnes MD [STAFF PHYSICIAN] - 06/07/23 1:15 pm Sheyla Mendenhall MD [STAFF PHYSICIAN] - 1 Week (Office is closed. Please call Tuesday to schedule follow up appoitment) Roque Lombardi MD [STAFF PHYSICIAN] - 1 Week (Office will call you to schedule follow up appoitment) Patient Instructions/Handouts: Pulmonary Embolism (IP) Activity/Diet/Wound Care/Special Instructions: Activity as tolerated Discharge Disposition: HOME SELF-CARE
--- NOTE | 2023-06-01 10:07 | CDI ---
Documentation Clarification Form Date: 06/01/23 From: Radha Bolaños Admit Date: 05/27/2023 12:10:00 PM Patient Name: Jose Ash Visit Number: [id number] Discharge Date: 05/30/2023 11:53:00 AM ATTENTION: The Clinical Documentation Specialists (CDI) and [facility] Coding Staff appreciate your assistance in clarifying documentation. Please respond to the clarification below the line at the bottom and electronically sign. The CDI & [facility] Coding staff will review the response and follow-up if needed. Please note: Queries are made part of the Legal Health Record. If you have any questions, please contact the author of this message via ITS. Dr. Nikolai Whitten, Right heart strain is documented in the H&P, procedure note, PNs and DS. Additional clarification regarding the acute cor pulmonale is requested. History/Risk Factors: COPD, pulmonary HTN, HTN, HLD, Obesity, ANJALI, GERD Clinical Indicators: Acutebilateral pulmonary embolism, with right heartstrain, transferred from [facility] for bilateralEKOScatheter placementandTPA infusion BNP: none Echo & CT results: Evidence of rightventricular dilationwhich was persistentand therefore recommended to undergoEkosplacement. CXR, CT or lung scans Treatment: BilateralEKOScatheter placementand intraarterialTPA administration and anticoagulation Please clarify the acuity and etiology of acute Cor pulmonale, if known: [ X ] Acute Cor pulmonale due to pulmonary embolism [ ] Acute Cor pulmonale ruled out [ ] Other, please specify MTDD
--- NOTE | 2023-06-01 10:27 | CDI ---
Documentation Clarification Form Date: 06/01/23 From: Radha Bolaños Admit Date: 05/27/2023 12:10:00 PM Patient Name: Jose Ash Visit Number: [id number] Discharge Date: 05/30/2023 11:53:00 AM ATTENTION: The Clinical Documentation Specialists (CDI) and [facility] Coding Staff appreciate your assistance in clarifying documentation. Please respond to the clarification below the line at the bottom and electronically sign. The CDI & [facility] Coding staff will review the response and follow-up if needed. Please note: Queries are made part of the Legal Health Record. If you have any questions, please contact the author of this message via ITS. Dr. Geller E Sheet, Your patient was found to hypoxic and found to have pulmonary embolism, per the procedure note. Based on this information and the findings below, is there an additional diagnosis that is clinically appropriate for this patient? History/Risk Factors: COPD, pulmonary HTN, HTN, HLD, Obesity, ANJALI, GERD Tobacco use: HX of smoking Home oxygen: none Clinical Indicators: He had some increased dyspnea over the last 1-2 weeks and presented with hypoxic. Acute bilateral pulmonary embolism, with right heart strain, transferred from [facility] for bilateral EKOS catheter placement and TPA infusion. Vital signs: O2 95 4L NC 05/26, 94 4L NC(05/26), 93 4L NC (05/27) R (05/26) //56// Treatment: O2 and treated for PE Is there an additional diagnosis that is clinically appropriate for this patient? [ x ] Acute Hypoxic Respiratory Failure , resolved upon discharge [ ] Acute Hypercapnic Respiratory Failure [ ] No additional diagnosis/not clinically significant [ ] Other Diagnosis, please specify [ ] Unable to determine MTDD
== END 2023-05-30 11:53 | disposition home or self-care (01) | DRG 173 ==
LOC: 2SICU 12:10 → 3SCARD 05-28 17:31
PROVIDERS: ADMIT Internal Medicine; ATTEND Internal Medicine
PROC: 3E06317 Introduction of Other Thrombolytic into Central Artery, Percutaneous Approach (ICD-10-PCS; principal; 2023-05-27 10:30)
PROC: 02FR3Z0 Fragmentation of Left Pulmonary Artery, Percutaneous Approach, Ultrasonic (ICD-10-PCS; principal; 2023-05-27 10:30)
PROC: 02FQ3Z0 Fragmentation of Right Pulmonary Artery, Percutaneous Approach, Ultrasonic (ICD-10-PCS; principal; 2023-05-27 10:30)
DX: I26.09 Other pulmonary embolism with acute cor pulmonale (principal); J96.01 Acute respiratory failure with hypoxia; J44.1 Chronic obstructive pulmonary disease with (acute) exacerbation; I27.20 Pulmonary hypertension, unspecified; I10 Essential (primary) hypertension; E66.9 Obesity, unspecified; Z68.29 Body mass index [BMI] 29.0-29.9, adult; E78.5 Hyperlipidemia, unspecified; G43.909 Migraine, unspecified, not intractable, without status migrainosus; G47.33 Obstructive sleep apnea (adult) (pediatric); K21.9 Gastro-esophageal reflux disease without esophagitis; Z79.82 Long term (current) use of aspirin; Z79.51 Long term (current) use of inhaled steroids; Z79.899 Other long term (current) drug therapy; Z87.891 Personal history of nicotine dependence; Z86.19 Personal history of other infectious and parasitic diseases; Z87.442 Personal history of urinary calculi; Z88.1 Allergy status to other antibiotic agents; Z88.5 Allergy status to narcotic agent
CPT/HCPCS: 37211; 80053; 85025; 85384; 85610; 85730; 94640; 94760

== ENCOUNTER 2023-07-29 16:49 | Emergency (ER) | payer OTHER, MEDICARE ==
[2023-07-29 17:38] LABS: Basophils % (A) 0 %; Eosinophils # (A) 0.1 k/uL (0-0.7); Eosinophils % (A) 1 %; HCT 46.9 % (39.0-53.0); HGB 14.7 gm/dL (13.0-17.5); Lymphocytes # (A) 1.4 k/uL (1.0-4.8); Lymphocytes % (A) 17 %; MCH 27.4 pg (25.0-35.0); MCHC 31.3 g/dL (31.0-37.0); MCV 87.4 fL (80.0-100.0); Mean Platelet Volume 7.6; Monocytes # (A) 0.5 k/uL (0-1.0); Monocytes % (A) 6 %; Neutrophils # (A) 6.1 k/uL (1.3-7.7); Neutrophils % (A) 75 %; Platelet Count 259 k/uL (150-450); RBC 5.37 m/uL (4.30-5.90); RDW 14.9 % (11.5-15.5); WBC 8.2 k/uL (3.8-10.6)
[2023-07-29 17:46] LABS: ALT 25 U/L (4-49); AST 21 U/L (17-59); African American GFR (CKD) >90 (>60 ml/min/1.73 sqM); Albumin 4.4 g/dL (3.5-5.0); Alcohol <10 mg/dL; Alkaline Phosphatase 64 U/L (38-126); Anion Gap 7 mmol/L; Blood Urea Nitrogen 14 mg/dL (9-20); Calcium 9.3 mg/dL (8.4-10.2); Carbon Dioxide 19 mmol/L (22-30); Chloride 109 mmol/L (98-107); Glucose 131 mg/dL (74-99); Non-African American GFR(CKD) 82 (>60 ml/min/1.73 sqM); Potassium 3.9 mmol/L (3.5-5.1); Sodium 135 mmol/L (137-145); Total Bilirubin 1.4 mg/dL (0.2-1.3); Total Protein 7.1 g/dL (6.3-8.2)
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
[2023-07-29 17:49] LABS: Prothrombin Time 10.7 sec (10.0-12.5)
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
[2023-07-29 18:29] LABS: Glucose,Whole Blood 102 mg/dL (70-110)
[2023-07-29 19:41] LABS: Amphetamine Screen,Urine Not Detected (NotDetected); Barbiturate Screen,Urine Not Detected (NotDetected); Benzodiazepines Screen,Urine Detected (NotDetected); Cocaine Screen,Urine Not Detected (NotDetected); Methadone Screen, Urine Not Detected (NotDetected); Opiate Screen,Urine Not Detected (NotDetected); Oxycodone Screen, Urine Not Detected (NotDetected); Phencyclidine Screen,Urine Not Detected (NotDetected); Tricyclic Antidepressant,Urine Not Detected (NotDetected); Urn Cannabinoid Scrn Not Detected (NotDetected)
[2023-07-29 19:43] VITALS: RESP 16
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
[2023-07-29] MEDS: CYCLOBENZAPRINE 10MG STARTER 3 TAB BTL PO STA (20:06)
[2023-07-29 20:26] VITALS: BP 124/94; PULSE 67; TEMP 98.7
== END 2023-07-29 20:06 | disposition home or self-care (01) ==
LOC: EC 16:49
DX: R07.89 Other chest pain (principal); R10.9 Unspecified abdominal pain; Z86.711 Personal history of pulmonary embolism; Z79.01 Long term (current) use of anticoagulants; Z88.5 Allergy status to narcotic agent; Z87.891 Personal history of nicotine dependence; Z88.1 Allergy status to other antibiotic agents; Z91.048 Other nonmedicinal substance allergy status; V89.2XXA Person injured in unspecified motor-vehicle accident, traffic, initial encounter; Y92.410 Unspecified street and highway as the place of occurrence of the external cause
CPT/HCPCS: 36415; 93005; 86900; 86901; 80053; 84484; 85025; 85610; 85730; 86850; 80306; 80320; 72170; 71045; 71260; 74177; 99285; Q9967

== ENCOUNTER → 2023-08-08 | Outpatient (CLI) | payer MEDICARE ==
[2023-08-08 17:40] LABS: African American GFR (CKD) >90 (>60 ml/min/1.73 sqM); Blood Urea Nitrogen 15 mg/dL (9-20); Non-African American GFR(CKD) 85 (>60 ml/min/1.73 sqM)
--- NOTE | 2023-08-08 18:53 | CT ---
EXAMINATION TYPE: CT chest angio for PE DATE OF EXAM: 08/08/2023 COMPARISON: 11/01/2018 HISTORY: Chest pain and SOB, history of PE CT DLP: 454.9 mGycm Automated exposure control for dose reduction was used. CONTRAST: CT Chest for pulmonary embolism performed with with IV Contrast, patient injected with 80 mL of Isovu e 370. 3-D postprocessing was performed. FINDINGS: There is an 8.5 mm left fissural nodule which has increased significantly in size compared to the caitlyn or study. There is no airspace consolidation or abnormal interstitial density. There is no pleural effusion, pleural thickening or pneumothorax. The great vessels just normal is no mediastinal, hilar or axillary adenopathy. There are no filling defects in the pulmonary arterial circulation to suggest pulmonary embolism. Limited scans of the upper abdomen reveals a large gallstone. IMPRESSION: 1. No evidence of pulmonary embolus. 2. No acute cardiac or disease. 3. 8.5 cm left fissural nodule which has increased significantly compared to the prior study of 2019. Follow-up CT thorax in 3 months is recommended to confirm stability. 4. Large gallstone
== END | disposition home or self-care (01) ==
LOC: RADCTMAIN 16:37
PROVIDERS: ATTEND Internal Medicine
DX: K80.20 Calculus of gallbladder without cholecystitis without obstruction (principal); R06.02 Shortness of breath
CPT/HCPCS: 82565; 84520; 71275; 36415; Q9967

== ENCOUNTER 2023-08-30 17:50 | Emergency (ER) | payer MEDICARE ==
[2023-08-30 17:54] VITALS: TEMP 97.5
--- NOTE | 2023-08-30 17:59 | ED ---
Allergic Reaction HPI - General Chief complaint: Allergic Reaction Stated complaint: poss allergic reaction Time Seen by Provider: 08/30/23 17:58 Source: patient, RN notes reviewed, old records reviewed Limitations: no limitations - History of Present Illness Initial Comments: This is a 68-year-old male with allergic reaction to CAT scan, patient does have facial flushing as well as hive reaction to the face. MD Complaint: allergic reaction, hives, facial swelling -: hour(s) Exposure: other (Patient was exposed to CT contrast) Severity: moderate Treatment Prior to Arrival: none Previous Allergy History: none - Related Data Home Medications Medication Instructions Recorded Confirmed Aspirin/Acetaminophen/Caffeine 2 - 3 tab PO DIRECTED PRN 06/06/17 05/27/23 [Excedrin Migraine Caplet] Topiramate [Topamax] 100 mg PO HS 11/01/18 05/27/23 Albuterol Sulfate [Albuterol 2 puff INHALATION RT-Q4H PRN 11/18/22 05/27/23 Sulfate Hfa] Atorvastatin [Lipitor] 20 mg PO HS 11/18/22 05/27/23 Azelastine HCl [Astepro] 2 spray EA NOSTRIL BID 11/18/22 05/27/23 Fluticasone/Umeclidin/Vilanter 1 puff INHALATION RT-DAILY 11/18/22 05/27/23 [Trelegy Ellipta 200-62.5-25] Montelukast [Singulair] 10 mg PO HS 11/18/22 05/27/23 Omeprazole [PriLOSEC] 40 mg PO HS 11/18/22 05/27/23 Flaxseed Oil/[place]-3 1400mg/700mg 1 cap PO HS 05/27/23 05/27/23 Levocetirizine Dihydrochloride 5 mg PO DAILY 05/27/23 05/27/23 [Xyzal] Melatonin 10 mg PO HS 05/27/23 05/27/23 [place] Extract 1 - 2 tab PO DAILY 05/27/23 05/27/23 Propranolol LA [Inderal LA] 80 mg PO HS 05/27/23 05/27/23 Previous Rx's Medication Instructions Recorded Apixaban [Eliquis] 5 mg PO DIRECTED 30 Days #60 tab 05/29/23 Cyclobenzaprine [Flexeril] 10 mg PO TID PRN #30 tab 07/29/23 Famotidine [Pepcid] 20 mg PO BID #28 tablet 08/30/23 hydrOXYzine HCL [Atarax] 25 mg PO TID PRN #15 tab 08/30/23 predniSONE 50 mg PO DAILY #5 tab 08/30/23 Allergies Allergy/AdvReac Type Severity Reaction Status Date / Time Iodinated Contrast Media Allergy Dyspnea Verified 08/30/23 19:16 tetracycline Allergy violent Verified 08/30/23 17:54 hops AdvReac Severe beer hops Verified 08/30/23 17:54 allergy- severe migraines, nausea hydrocodone [From [place]] AdvReac Nausea & Verified 08/30/23 17:54 Vomiting Review of Systems ROS Statement: Those systems with pertinent positive or pertinent negative responses have been documented in the HPI. ROS Other: All systems not noted in ROS Statement are negative. Past Medical History Past Medical History: COPD, GERD/Reflux, Hypertension, Sleep Apnea/CPAP/BIPAP Additional Past Medical History / Comment(s): sleep apnea (no machine), kidney stones, frequent migraines, hx of viral hepatitis ., hx of seizures with injections- spouse has a "shot raul device" to use prior . History of Any Multi-Drug Resistant Organisms: None Reported Past Surgical History: Tonsillectomy Additional Past Surgical History / Comment(s): oral surgery for removal of teeth, tonsills (child) Past Anesthesia/Blood Transfusion Reactions: No Reported Reaction Past Psychological History: No Psychological Hx Reported Smoking Status: Former smoker Past Alcohol Use History: None Reported Past Drug Use History: Marijuana - Past Family History Father Family Medical History: Unable to Obtain Mother Family Medical History: COPD, Hypertension Additional Family Medical History / Comment(s): Cerebral Palsey General Exam Limitations: no limitations General appearance: alert, in no apparent distress Head exam: Present: atraumatic, normocephalic, normal inspection Eye exam: Present: normal appearance, PERRL, EOMI. Absent: scleral icterus, conjunctival injection, periorbital swelling ENT exam: Present: normal exam, mucous membranes moist Neck exam: Present: normal inspection. Absent: tenderness, meningismus, lymphadenopathy Respiratory exam: Present: normal lung sounds bilaterally. Absent: respiratory distress, wheezes, rales, rhonchi, stridor Cardiovascular Exam: Present: regular rate, normal rhythm, normal heart sounds. Absent: systolic murmur, diastolic murmur, rubs, gallop, clicks GI/Abdominal exam: Present: soft, normal bowel sounds. Absent: distended, tenderness, guarding, rebound, rigid Extremities exam: Present: normal inspection, full ROM, normal capillary refill. Absent: tenderness, pedal edema, joint swelling, calf tenderness Back exam: Present: normal inspection Neurological exam: Present: alert, oriented X3, CN II-XII intact Psychiatric exam: Present: normal affect, normal mood Skin exam: Present: warm, dry, intact, normal color. Absent: rash Course Vital Signs 08/30/23 08/30/23 08/30/23 17:51 18:30 19:33 Temperature 97.5 F L Pulse Rate 93 78 Respiratory 18 18 Rate Blood Pressure 130/93 O2 Sat by Pulse 95 Oximetry 08/30/23 08/30/23 19:49 20:12 Temperature Pulse Rate 76 78 Respiratory 17 Rate Blood Pressure 141/94 O2 Sat by Pulse 92 L Oximetry - Reevaluation(s) Reevaluation #1: 08/30/23 18:51 Medical records reviewed Reevaluation #2: 08/30/23 18:51 Patient symptoms improved Reevaluation #3: 08/30/23 18:52 Patient informed of results questions answered Reevaluation #4: Was pt. sent in by a medical professional or institution (, PA, HUMAN SERVICE TECHNICIAN, urgent care, hospital, or residential...) When possible be specific @ -no Did you speak to anyone other than the patient for history (EMS, parent, family, police, friend...)? What history was obtained from this source @ -no Did you review nursing and triage notes (agree or disagree)? Why? @ -agree Are old charts reviewed (outside hosp., previous admission, EMS record, old EKG, old radiological studies, urgent care reports/EKG's, residential records)? Report findings @ -yes Differential Diagnosis (chest pain, altered mental status, abdominal pain women, abdominal pain men, vaginal bleeding, weakness, fever, dyspnea, syncope, headache, dizziness, GI bleed, back pain, seizure, CVA, palpatations, mental health, musculoskeletal)? @ -prior EKG interpreted by me (3pts min.). @ -no X-rays interpreted by me (1pt min.). @ -no CT interpreted by me (1pt min.). @ -no U/S interpreted by me (1pt. min.). @ -no What testing was considered but not performed or refused? (CT, X-rays, U/S, labs)? Why? @ -none What meds were considered but not given or refused? Why? @ -none Did you discuss the management of the patient with other professionals (professionals i.e. , PA, HUMAN SERVICE TECHNICIAN, lab, RT, psych nurse, social media intern, cooler deliverer, teacher, conservation enforcement officer, caseworker intake)? Give summary @ -no Was smoking cessation discussed for >3mins.? @ -no Was critical care preformed (if so, how long)? @ -no Were there social determinants of health that impacted care today? How? (Homelessness, low income, unemployed, alcoholism, drug addiction, transportation, low edu. Level, literacy, decrease access to med. care, shelter, rehab)? @ -none Was there de-escalation of care discussed even if they declined (Discuss DNR or withdrawal of care, Hospice)? DNR status @ -no What co-morbidities impacted this encounter? (DM, HTN, Smoking, COPD, CAD, Cancer, CVA, ARF, Chemo, Hep., AIDS, mental health diagnosis, sleep apnea, morbid obesity)? @ -none Was patient admitted / discharged? Hospital course, mention meds given and route, prescriptions, significant lab abnormalities, going to OR and other pertinent info. @ - 68 male seen to the emergency department for evaluation of CT scan getting an allergic reaction of the ER for evaluation of allergic reaction allergic r eaction to contrast dye. At this time patient feels better can be discharged home Discharge Undiagnosed new problem with uncertain prognosis? @ -no Drug Therapy requiring intensive monitoring for toxicity (Heparin, Nitro, Insulin, Cardizem)? @ -no Were any procedures done? @ -no Diagnosis/symptom? @ -Contrast dye allergy Acute, or Chronic, or Acute on Chronic? @ -Acute Uncomplicated (without systemic symptoms) or Complicated (systemic symptoms)? @ -Complicated Side effects of treatment? @ -no Exacerbation, Progression, or Severe Exacerbation? @ -exacerbation Poses a threat to life or bodily function? How? (Chest pain, [place], PR, pneumonia, PE, COPD, DKA, ARF, appy, cholecystitis, CVA, Diverticulitis, Homicidal, Suicidal, threat to staff... and all critical care pts) @ -yes extremes of age Medical Decision Making - Medical Decision Making 68 male seen to the emergency department for evaluation of CT scan getting an allergic reaction of the ER for evaluation of allergic reaction allergic reaction to contrast dye. At this time patient feels better can be discharged home Disposition Clinical Impression: Allergic reaction, Allergic reaction to drug Disposition: HOME SELF-CARE Condition: Good Instructions (If sedation given, give patient instructions): Anaphylaxis (ED) Prescriptions: hydrOXYzine HCL [Atarax] 25 mg PO TID PRN #15 tab PRN Reason: Itching Famotidine [Pepcid] 20 mg PO BID #28 tablet predniSONE 50 mg PO DAILY #5 tab Is patient prescribed a controlled substance at d/c from ED?: No Referrals: Sheyla Mendenhall MD [Primary Care Provider] - 1-2 days Time of Disposition: 18:50
[2023-08-30] MEDS: methylPREDNISolone SOD SUCCI 125 MG/2 ML VIAL IV STA (18:34)
[2023-08-30] MEDS: FAMOTIDINE 20 MG/2 ML VIAL IV STA (18:35)
[2023-08-30] MEDS: diphenhydrAMINE 50 MG/ML 1 ML VIAL IVP STA (18:35)
[2023-08-30] MEDS: hydrOXYzine HCL 25 MG TAB PO STA (18:36)
[2023-08-30] MEDS: SODIUM CHLORIDE 0.9% 500 ML 500 ML IV STA (18:37)
[2023-08-30] MEDS: DEXAMETHASONE SOD PHOSPHATE 10 MG/ML 1 ML VIAL IVP STA (19:00)
[2023-08-30] MEDS: IPRATROPIUM-ALBUTEROL 3 ML NEB INHALATION STA (19:32)
[2023-08-30 20:14] VITALS: BP 141/94; PULSE 78; RESP 17
== END 2023-08-30 20:14 | disposition home or self-care (01) ==
LOC: EC 17:50
DX: T50.905A Adverse effect of unspecified drugs, medicaments and biological substances, initial encounter (principal); Z87.891 Personal history of nicotine dependence; Z88.5 Allergy status to narcotic agent; Z91.041 Radiographic dye allergy status; Z88.8 Allergy status to other drugs, medicaments and biological substances
CPT/HCPCS: 94640; 99283; 96374; 96375 ×3; 96361; J1200; J1100; J3490; J2919

== ENCOUNTER → 2023-08-30 | Outpatient (CLI) | payer MEDICARE ==
[2023-08-30 15:09] LABS: African American GFR (CKD) >90 (>60 ml/min/1.73 sqM); Blood Urea Nitrogen 21 mg/dL (9-20); Non-African American GFR(CKD) 89 (>60 ml/min/1.73 sqM)
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
== END | disposition home or self-care (01) ==
LOC: RADCTMAIN 13:54
PROVIDERS: ATTEND Internal Medicine
DX: I65.23 Occlusion and stenosis of bilateral carotid arteries (principal); R55 Syncope and collapse
CPT/HCPCS: 82565; 84520; 93880; 70470; 36415; Q9967

== ENCOUNTER 2023-11-03 07:04 | Day surgery (SDC) | payer MEDICARE ==
[2023-10-28 15:28] VITALS: BMI 29.3
[~2023-11-03 07:04] MED LIST: SODIUM CHLORIDE 0.9% 1,000 ML IV SCH
[2023-11-03] MEDS: SODIUM CHLORIDE 0.9% 500 ML 500 ML IV ONE (07:16)
[2023-11-03 07:33] VITALS: BP 117/73; PULSE 91; RESP 16; TEMP 97.1
--- NOTE | 2023-11-03 10:57 | P.EPPROC ---
- EP Procedure Note Electrophysiology Procedure Note: Diagnosis Recurrent syncope Twelve-lead EKG shows sinus rhythm notched P waves in the inferior leads, biphasic notched P waves in lead V1, likely intra-atrial daily Tilt table test per protocol Baseline blood pressure 121/75 mmHg baseline heart rate 81 beats a minute Patient was tilted upright at an angle of 70 degrees per protocol Mild drop in blood pressure to 106/75 mmHg Thereafter his blood pressure stabilized Heart rates remained in the 90s No evidence for dysautonomia or neurocardiogenic syncope Impression intra-atrial delay normal UT interval narrow QRS normal ST segments on twelve- lead EKG Normal heart rate and blood pressure response to upright tilting
== END 2023-11-03 10:28 | disposition home or self-care (01) ==
LOC: CATHEP 07:04
PROVIDERS: ATTEND Internal Medicine Clinical Cardiac Electrophysiology
DX: R55 Syncope and collapse (principal)
CPT/HCPCS: 93660

== ENCOUNTER → 2023-11-18 | Outpatient (CLI) | payer MEDICARE ==
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
== END | disposition home or self-care (01) ==
LOC: RADMRIMAIN 15:34
PROVIDERS: ATTEND Family Medicine
DX: R41.3 Other amnesia
CPT/HCPCS: 70553

== ENCOUNTER 2023-11-30 10:56 | Emergency (ER) | payer MEDICARE ==
[2023-11-30 11:45] LABS: Basophils % (A) 0 %; Eosinophils # (A) 0.1 k/uL (0-0.7); Eosinophils % (A) 2 %; HCT 45.3 % (39.0-53.0); HGB 14.7 gm/dL (13.0-17.5); Lymphocytes # (A) 1.4 k/uL (1.0-4.8); Lymphocytes % (A) 23 %; MCH 28.2 pg (25.0-35.0); MCHC 32.4 g/dL (31.0-37.0); MCV 87.2 fL (80.0-100.0); Mean Platelet Volume 6.9; Monocytes # (A) 0.3 k/uL (0-1.0); Monocytes % (A) 5 %; Neutrophils % (A) 68 %; Platelet Count 312 k/uL (150-450); RDW 14.5 % (11.5-15.5); WBC 5.9 k/uL (3.8-10.6)
[2023-11-30 11:52] LABS: Partial Thromboplastin Time 26.1 sec (22.0-30.0); Prothrombin Time 11.1 sec (10.0-12.5)
[2023-11-30 11:57] LABS: ALT 13 U/L (4-49); AST 15 U/L (17-59); African American GFR (CKD) >90 (>60 ml/min/1.73 sqM); Albumin 2.5 g/dL (3.5-5.0); Alkaline Phosphatase 41 U/L (38-126); Anion Gap 5 mmol/L; Blood Urea Nitrogen 7 mg/dL (9-20); Carbon Dioxide 13 mmol/L (22-30); Chloride 122 mmol/L (98-107); Creatine Kinase 71 U/L (55-170); Glucose 80 mg/dL (74-99); Non-African American GFR(CKD) >90 (>60 ml/min/1.73 sqM); Sodium 140 mmol/L (137-145); Total Bilirubin 0.7 mg/dL (0.2-1.3); Total Protein 4.6 g/dL (6.3-8.2)
[2023-11-30 12:04] LABS: Calcium 6.4 mg/dL (8.4-10.2); Potassium 2.5 mmol/L (3.5-5.1)
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
--- NOTE | 2023-11-30 13:20 | CT ---
EXAMINATION TYPE: CT brain cspine wo con CT DLP: 1405.3 mGycm, Automated exposure control for dose reduction was used. DATE OF EXAM: 11/30/2023 12:58 PM COMPARISON: CT brain 08/30/2023. CLINICAL INDICATION:Male, 68 years old with history of right hand paresthesias; RIGHT HAND NUMBNESS TECHNIQUE: Brain: Multiple axial CT images of the brain were obtained without IV contrast. Cspine: Axial CT images from the skull base to the inferior aspect of T2 we obtained without intraven ous contrast. Coronal and sagittal reformatted images were also reviewed. FINDINGS: Brain: Extra-axial spaces: No abnormal extra-axial fluid collections. Ventricular system: Within normal limits Cerebral parenchyma: No acute intraparenchymal hemorrhage or mass effect. The lea-white junction is well differentiated. Scattered hypoattenuating areas are seen within the periventricular white matte r. Cerebellum: Unremarkable. Mass effect: No evidence of midline shift. Intracranial vasculature: Atherosclerotic calcifications of the intracranial vessels. Soft tissues: Normal. Calvarium/osseous structures: No depressed skull fracture. Remote appearing left maxillary anterior w all depressed fracture. New from prior CT 08/30/23. Paranasal sinuses and mastoid air cells: Clear. Visualized orbits: Orbital contents are intact. Cervical spine: Fracture: None. Osseous structures: Multilevel degenerative disc disease changes with endplate spurring and disc oste ophyte complex's. Vertebral alignment: Within normal limits. Spinal canal/Neural Foramina: Disc osteophyte complexes at C3-C4 and C6-C7 with at least mild spinal canal stenosis. Facet joint uncovertebral joint arthropathy with moderate right and severe left neuro foraminal stenosis at C3-C4, moderate right and mild left neuroforaminal stenosis at C4-C5, and moder ate to severe bilateral neuroforaminal stenosis at C6-C7. Neck soft tissues: Prevertebral soft tissues are within normal limits. Other: The airway is patent. The lung apices are clear. IMPRESSION: 1. No acute intracranial process. 2. Nonspecific white matter changes, likely secondary to chronic small vessel ischemic disease. 3. Remote left anterior maxillary wall depressed fracture. 4. No evidence of cervical spine fracture. 5. Mild multilevel degenerative disc disease with moderate uncovertebral and facet joint arthropathy as described above. [facility], , 11/30/2023 1:17 PM
[2023-11-30 15:19] LABS: African American GFR (CKD) 86 (>60 ml/min/1.73 sqM); Anion Gap 9 mmol/L; Blood Urea Nitrogen 9 mg/dL (9-20); Calcium 9.6 mg/dL (8.4-10.2); Carbon Dioxide 18 mmol/L (22-30); Chloride 112 mmol/L (98-107); Glucose 105 mg/dL (74-99); Non-African American GFR(CKD) 74 (>60 ml/min/1.73 sqM); Potassium 3.8 mmol/L (3.5-5.1); Sodium 139 mmol/L (137-145)
[2023-11-30] MEDS: DEXAMETHASONE SOD PHOSPHATE 10 MG/ML 1 ML VIAL IVP STA (16:01)
[2023-11-30 16:15] VITALS: BP 124/86; PULSE 78; RESP 18; TEMP 98
== END 2023-11-30 16:04 | disposition home or self-care (01) ==
LOC: EC 10:56
DX: M54.12 Radiculopathy, cervical region (principal); R20.2 Paresthesia of skin; Z87.891 Personal history of nicotine dependence; Z91.041 Radiographic dye allergy status; Z88.5 Allergy status to narcotic agent; Z88.8 Allergy status to other drugs, medicaments and biological substances
CPT/HCPCS: 36415; 93005; 80053; 80048; 82330; 82550; 84484; 85025; 85610; 85730; 72125; 70450; 99284; 96374; J1100

== ENCOUNTER 2024-03-13 06:50 | Day surgery (SDC) | payer MEDICARE ==
[2024-03-08 10:18] VITALS: BMI 27.8
[~2024-03-13 06:50] MED LIST changes: +LACTATED RINGERS 1,000 ML IV SCH; +LIDOCAINE 1% (10MG/ML) FOR IV START INTRADERMA PRN; -SODIUM CHLORIDE 0.9% 1,000 ML IV SCH
[2024-03-13 07:23] VITALS: TEMP 97
[2024-03-13] MEDS: SODIUM CHLORIDE 0.9% 1,000 ML IV ONE (07:28)
[2024-03-13] MEDS ORDERED: PROPOFOL 10 MG/ML 20 ML VIAL IV ONE (07:52)
[2024-03-13] MEDS ORDERED: LIDOCAINE 1% INJ 10MG/ML (20 ML MDV) ONE (07:52)
--- NOTE | 2024-03-13 08:15 | P.PCN ---
Date of Procedure: 03/13/24 Procedure(s) Performed: Brief history: Patient is a pleasant 68-year-old pleasant white male scheduled for an elective upper endoscopy as well as colonoscopy as a part of evaluation of abdominal pain, intermittent nausea vomiting and change in bowel habits for the last few months duration. Procedure performed: Esophagogastroduodenoscopy with biopsy Colonoscopy with snare polypectomy Preoperative diagnosis: Abdominal pain, intermittent nausea vomiting Change in bowel habits Anesthesia: MAC Procedure: After informed consent was obtained from the patient was brought into the endoscopy unit and IV sedation was administered by anesthesia under continuous monitoring. Initially upper endoscopy was done. The Olympus GF 160 video endoscope was inserted inserted into the mouth and esophagus intubated without any difficulty and was gradually advanced into the stomach and duodenum and carefully examined. The bulb and second part of the duodenum appeared normal. Biopsies were done from the duodenum to rule out celiac disease. The scope was then withdrawn into the stomach adequately insufflated with air and upon careful examination the antrum had mild antral gastritis and biopsies were done from this area. Mucosa of the body, cardia and fundus appeared normal. The scope was then withdrawn into the esophagus. The GE junction was located at 40 cm to the incisors. It appeared regular with no erythema erosions or ulcerations. Rest of the esophagus appeared normal. Patient tolerated the procedure well. At this time the patient continued to remain sedation. Initial digital rectal examination was normal. Olympus CF 160 video colonoscope was then inserted into the rectum and gradually advanced to the cecum without any difficulty. Careful examination was performed as the scope was gradually being withdrawn. The prep was poor in several areas of the colon the cecum, ascending colon, transverse colon, descending colon, sigmoid colon and rectum appeared normal. Retroflexion was performed in the rectum and 7 mm polyp was noted on the dentate line which was removed by hot snare polypectomy. Small internal hemorrhoids were also noted. Patient tolerated the procedure well. Impression: 1. Upper endoscopy revealed mild antral gastritis but no evidence of esophagitis or peptic ulcer disease 2. Colonoscopy revealed 7 mm distal rectal polyp on the dentate line s/p hot snare polypectomy and small internal hemorrhoids Recommendations: Findings of this examination were discussed with the patient as well as his family. He was advised to follow with the biopsy results. If the biopsy reveals adenoma he can have repeat colonoscopy in 5 years
[2024-03-13 08:23] VITALS: PULSE 71
[2024-03-13 08:42] VITALS: BP 128/82; RESP 18
== END 2024-03-13 09:15 | disposition home or self-care (01) ==
LOC: ORWHC2ENDO 06:50
PROVIDERS: ATTEND Internal Medicine Gastroenterology
DX: K62.82 Dysplasia of anus (principal); A63.0 Anogenital (venereal) warts; K64.8 Other hemorrhoids; I10 Essential (primary) hypertension; E78.5 Hyperlipidemia, unspecified; G47.33 Obstructive sleep apnea (adult) (pediatric); G40.909 Epilepsy, unspecified, not intractable, without status epilepticus; K21.9 Gastro-esophageal reflux disease without esophagitis; J44.9 Chronic obstructive pulmonary disease, unspecified; Z87.442 Personal history of urinary calculi; Z99.89 Dependence on other enabling machines and devices; Z87.891 Personal history of nicotine dependence; Z79.01 Long term (current) use of anticoagulants; Z79.51 Long term (current) use of inhaled steroids; Z79.899 Other long term (current) drug therapy; Z91.041 Radiographic dye allergy status; Z88.1 Allergy status to other antibiotic agents; Z88.8 Allergy status to other drugs, medicaments and biological substances
CPT/HCPCS: 88305; 88342; 45385; 43239; J2003; J2704

== ENCOUNTER 2024-05-07 07:04 | Observation (INO) | payer MEDICARE ==
--- NOTE | 2024-05-07 07:29 | ED ---
General Adult HPI - General Chief complaint: Chest Pain Stated complaint: Chest pain Time Seen by Provider: 05/07/24 07:11 Source: patient Mode of arrival: wheelchair Limitations: no limitations - History of Present Illness Initial comments: Dictation was produced using [employer] dictation software. please excuse any grammatical, word or spelling errors. Chief Complaint: 69-year-old male with history of Lewy body dementia presents to the ER for chest pain History of Present Illness: Patient 69-year-old male with no cardiac history presents to the emergency department chest pain he was in bed this morning when he began having chest pain. States it was sharp localized to substernal area. Nonradiating not associated nausea however he did state that the pain caused him to be flushed. Patient denies any cardiac history. No family history. Has r emote history of tobacco use. He does have a history of hypertension and high cholesterol. No diabetes. Patient denies any symptoms currently. States that he feels at baseline. at the bedside states that he appears to be at baseline as well. The ROS documented in this emergency department record has been reviewed and confirmed by me. Those systems with pertinent positive or negative responses have been documented in the HPI. All other systems are other negative and/or noncontributory. - Related Data Home Medications Medication Instructions Recorded Confirmed Aspirin/Acetaminophen/Caffeine 2 tab PO QID PRN 06/06/17 03/13/24 [Excedrin Migraine Caplet] Topiramate [Topamax] 100 mg PO DAILY 11/01/18 03/13/24 Albuterol Sulfate [Albuterol 2 puff INHALATION RT-QID PRN 11/18/22 03/08/24 Sulfate Hfa] Atorvastatin [Lipitor] 20 mg PO DAILY 11/18/22 03/13/24 Azelastine HCl [Astepro] 2 spray EA NOSTRIL BID 11/18/22 03/13/24 Montelukast [Singulair] 10 mg PO HS 11/18/22 03/13/24 Flaxseed Oil/[place]-3 1400mg/700mg 1 cap PO HS 05/27/23 03/08/24 [place] Extract 500 mg PO DAILY 05/27/23 03/13/24 Albuterol Nebulized [Ventolin 2.5 mg INHALATION RT-QID PRN 10/28/23 03/08/24 Nebulized] Apixaban [Eliquis] 5 mg PO BID 10/28/23 03/13/24 Baclofen [Lioresal] 20 mg PO HS 10/28/23 03/08/24 Loratadine [Claritin] 10 mg PO DAILY 10/28/23 03/13/24 Losartan [Cozaar] 25 mg PO HS 10/28/23 03/13/24 Tamsulosin [Flomax] 0.4 mg PO DAILY 10/28/23 03/13/24 diphenhydrAMINE [Benadryl] 25 mg PO HS 10/28/23 03/13/24 Melatonin 20 mg PO HS 11/30/23 03/13/24 Lansoprazole 30 mg PO DAILY 03/08/24 03/13/24 Allergies Allergy/AdvReac Type Severity Reaction Status Date / Time Iodinated Contrast Media Allergy Dyspnea, Verified 05/07/24 07:07 swelling, rash tetracycline Allergy violent, Verified 05/07/24 07:07 mood swings hops AdvReac Severe beer hops Verified 05/07/24 07:07 allergy- severe migraines, nausea hydrocodone [From [place]] AdvReac Nausea & Verified 05/07/24 07:07 Vomiting Review of Systems ROS Statement: Those systems with pertinent positive or pertinent negative responses have been documented in the HPI. ROS Other: All systems not noted in ROS Statement are negative. Past Medical History Past Medical History: COPD, Dementia, GERD/Reflux, Hyperlipidemia, Hypertension, Pulmonary Embolus (PE), Sleep Apnea/CPAP/BIPAP Additional Past Medical History / Comment(s): sleep apnea (no machine), kidney stones, frequent migraines, hx of viral hepatitis ., hx of seizures with in jections- spouse has a "shot raul device" to use prior . PRIOR PE X3-NOW DISSOLVED-05/2023, kidney stones History of Any Multi-Drug Resistant Organisms: None Reported Past Surgical History: Tonsillectomy Additional Past Surgical History / Comment(s): oral surgery for removal of teeth, KIDNEY STONE REMOVED, Past Anesthesia/Blood Transfusion Reactions: No Reported Reaction Additional Past Anesthesia/Blood Transfusion Reaction / Comment(s): no blood transfusion Past Psychological History: No Psychological Hx Reported Smoking Status: Former smoker Past Alcohol Use History: None Reported Past Drug Use History: None Reported - Past Family History Father Family Medical History: Unable to Obtain Mother Family Medical History: COPD, Hypertension Additional Family Medical History / Comment(s): Cerebral Palsy General Exam - General Exam Comments Initial Comments: PHYSICAL EXAM: General Impression: Alert and oriented x3, not in acute distress HEENT: Normocephalic atraumatic, extra-ocular movements intact, pupils equal and reactive to light bilaterally, mucous membranes moist. Cardiovascular: Heart regular rate and rhythm Chest: Able to complete full sentences, no retractions, no tachypnea Abdomen: abdomen soft, non-tender, non-distended, no organomegaly Musculoskeletal: Pulses present and equal in all extremities, no peripheral edema Motor: no focal deficits noted Neurological: CN II-XII grossly intact, no focal motor or sensory deficits noted Skin: Intact with no visualized rashes Psych: Normal affect and mood Limitations: no limitations Course Vital Signs 05/07/24 05/07/24 07:08 08:04 Temperature 97.4 F L Pulse Rate 74 79 Respiratory 16 18 Rate Blood Pressure 128/83 131/93 O2 Sat by Pulse 94 L 96 Oximetry EKG Findings - EKG Comments: EKG Findings:: My EKG interpretation: Ventricular rate 76, sinus rhythm,. 179, QRS 87, QTc 391. No [place] prolongation, no QTC prolongation, no ST or T-wave changes noted. Overall, this EKG is unremarkable Medical Decision Making - Medical Decision Making Was pt. sent in by a medical professional or institution (Dr. PA, [facility] [employer], urgent care, hospital, or fci...) When possible be specific @ -No Did you speak to anyone other than the patient for history (EMS, parent, family, police, friend...)? What history was obtained from this source @ -No Did you review nursing and triage notes (agree or disagree)? Why? @ -I reviewed and agree with nursing and triage notes Were old charts reviewed (outside hosp., previous admission, EMS record, old EKG, old radiological studies, urgent care reports/EKG's, fci records)? Report findings @ -No old charts were reviewed Differential Diagnosis (chest pain, altered mental status, abdominal pain women, abdominal pain men, vaginal bleeding, musculoskeletal, weakness, fever, dyspnea, syncope, headache, dizziness, GI bleed, back pain, seizure, CVA, palpatations, mental health)? @ -Differential Chest Pain: Stable Angina, Unstable Angina, STEMI, NSTEMI Aortic Dissection, Pneumothorax, Musculoskeletal, Esophageal Spasm GERD, Cholecystitis, Pancreatitis, Zoster, this is not meant to be an all-inclusive list. EKG interpreted by me (3pts min.). @ -See above X-rays interpreted by me (1pt min.). @ -Chest x-ray shows no acute processes CT interpreted by me (1pt min.). @ -None done U/S interpreted by me (1pt. min.). @ -None done What testing was considered but not performed or refused? (CT, X-rays, U/S, labs)? Why? @ -None What meds were considered but not given or refused? Why? @ -None Was smoking cessation discussed for >3mins.? @ -No Were there social determinants of health that impacted care today? How? (Homelessness, low income, unemployed, alcoholism, drug addiction, transportation, low edu. Level, literacy, decrease access to med. care, fpc, rehab)? @ -No Was there de-escalation of care discussed even if they declined (Discuss DNR or withdrawal of care, Hospice)? DNR status @ -No What co-morbidities impacted this encounter? (DM, HTN, Smoking, COPD, CAD, Cancer, CVA, ARF, Chemo, Hep., AIDS, mental health diagnosis, sleep apnea, morbid obesity)? @ -Hypertension, dyslipidemia Was patient admitted / discharged? Hospital course, mention meds given and route, prescriptions, significant lab abnormalities, going to OR and other p ertinent info. @ -69-year-old male with atypical chest pain typical features. EKG is unremarkable. Patient well-appearing at the bedside in no acute distress. Vital signs are stable. EKG shows no signs of ischemia infarction. Laboratory evaluation shows no acute process. Troponin is negative. Disposition options were discussed. Patient is considered moderate risk will be admitted observat ion consultation to cardiology. Case discussed with hospitalist for admission. Patient given aspirin Did you discuss the management of the patient with other professionals (professionals i.e. , PA, [employer], lab, RT, psych nurse, social media intern, frog shaker, teacher, correctional officer chief, case finisher)? Give summary @ -No Was critical care preformed (if so, how long)? @ -No Undiagnosed new problem with uncertain prognosis? @ -No Drug Therapy requiring intensive monitoring for toxicity (Heparin, Nitro, Ins ulin, Cardizem)? @ -No Were any procedures done? @ -No Diagnosis/symptom? Acute, or Chronic, or Acute on Chronic? Uncomplicated (without systemic symptoms) or Complicated (systemic symptoms)? @ -Chest pain Side effects of treatment? @ -No Exacerbation, Progression, or Severe Exacerbation? @ -No Poses a threat to life or bodily function? How? (Chest pain, [place], NC, pneumonia, PE, COPD, DKA, ARF, appy, cholecystitis, CVA, Diverticulitis, Homicidal, Suicidal, threat to staff... and all critical care pts) @ -yes - Lab Data Result diagrams: 05/07/24 07:37 05/07/24 07:37 Lab Results 05/07/24 05/07/24 05/07/24 Range/Units 07:37 07:37 07:37 WBC 9.0 (3.8-10.6) k/uL RBC 5.03 (4.30-5.90) m/uL Hgb 13.8 (13.0-17.5) gm/dL Hct 43.7 (39.0-53.0) % MCV 86.8 (80.0-100.0) fL MCH 27.4 (25.0-35.0) pg MCHC 31.6 (31.0-37.0) g/dL RDW 14.7 (11.5-15.5) % Plt Count 302 (150-450) k/uL MPV 7.0 Neutrophils % 77 % Lymphocytes % 16 % Monocytes % 4 % Eosinophils % 1 % Basophils % 0 % Neutrophils # 7.0 (1.3-7.7) k/uL Lymphocytes # 1.5 (1.0-4.8) k/uL Monocytes # 0.3 (0-1.0) k/uL Eosinophils # 0.1 (0-0.7) k/uL Basophils # 0.0 (0-0.2) k/uL PT 11.0 (10.0-12.5) sec INR 1.0 (<1.2) APTT 23.4 (22.0-30.0) sec Sodium 136 L (137-145) mmol/L Potassium 3.7 (3.5-5.1) mmol/L Chloride 105 (98-107) mmol/L Carbon Dioxide 21 L (22-30) mmol/L Anion Gap 10 mmol/L BUN 15 (9-20) mg/dL Creatinine 0.83 (0.66-1.25) mg/dL Est GFR (CKD-EPI)AfAm >90 (>60 ml/min/1.73 sqM) Est GFR (CKD-EPI)NonAf 89 (>60 ml/min/1.73 sqM) Glucose 114 H (74-99) mg/dL Calcium 9.4 (8.4-10.2) mg/dL Magnesium 2.1 (1.6-2.3) mg/dL Total Bilirubin 0.9 (0.2-1.3) mg/dL AST 18 (17-59) U/L ALT 21 (4-49) U/L Alkaline Phosphatase 55 (38-126) U/L Troponin I (0.000-0.034) ng/mL Total Protein 6.6 (6.3-8.2) g/dL Albumin 4.0 (3.5-5.0) g/dL 05/07/24 Range/Units 07:37 WBC (3.8-10.6) k/uL RBC (4.30-5.90) m/uL Hgb (13.0-17.5) gm/dL Hct (39.0-53.0) % MCV (80.0-100.0) fL MCH (25.0-35.0) pg MCHC (31.0-37.0) g/dL RDW (11.5-15.5) % Plt Count (150-450) k/uL MPV Neutrophils % % Lymphocytes % % Monocytes % % Eosinophils % % Basophils % % Neutrophils # (1.3-7.7) k/uL Lymphocytes # (1.0-4.8) k/uL Monocytes # (0-1.0) k/uL Eosinophils # (0-0.7) k/uL Basophils # (0-0.2) k/uL PT (10.0-12.5) sec INR (<1.2) APTT (22.0-30.0) sec Sodium (137-145) mmol/L Potassium (3.5-5.1) mmol/L Chloride (98-107) mmol/L Carbon Dioxide (22-30) mmol/L Anion Gap mmol/L BUN (9-20) mg/dL Creatinine (0.66-1.25) mg/dL Est GFR (CKD-EPI)AfAm (>60 ml/min/1.73 sqM) Est GFR (CKD-EPI)NonAf (>60 ml/min/1.73 sqM) Glucose (74-99) mg/dL Calcium (8.4-10.2) mg/dL Magnesium (1.6-2.3) mg/dL Total Bilirubin (0.2-1.3) mg/dL AST (17-59) U/L ALT (4-49) U/L Alkaline Phosphatase (38-126) U/L Troponin I <0.012 (0.000-0.034) ng/mL Total Protein (6.3-8.2) g/dL Albumin (3.5-5.0) g/dL Disposition Clinical Impression: Chest pain Disposition: ADMITTED IP TO THIS HOSP Condition: Fair Referrals: Sheyla Mendenhall MD [Primary Care Provider] - 1-2 days Decision Time: 08:53
[2024-05-07 07:47] LABS: Basophils % (A) 0 %; Eosinophils # (A) 0.1 k/uL (0-0.7); Eosinophils % (A) 1 %; HCT 43.7 % (39.0-53.0); HGB 13.8 gm/dL (13.0-17.5); Lymphocytes # (A) 1.5 k/uL (1.0-4.8); Lymphocytes % (A) 16 %; MCH 27.4 pg (25.0-35.0); MCHC 31.6 g/dL (31.0-37.0); MCV 86.8 fL (80.0-100.0); Monocytes # (A) 0.3 k/uL (0-1.0); Monocytes % (A) 4 %; Neutrophils % (A) 77 %; Platelet Count 302 k/uL (150-450); RBC 5.03 m/uL (4.30-5.90); RDW 14.7 % (11.5-15.5)
[2024-05-07 08:09] LABS: ALT 21 U/L (4-49); AST 18 U/L (17-59); African American GFR (CKD) >90 (>60 ml/min/1.73 sqM); Alkaline Phosphatase 55 U/L (38-126); Anion Gap 10 mmol/L; Blood Urea Nitrogen 15 mg/dL (9-20); Calcium 9.4 mg/dL (8.4-10.2); Carbon Dioxide 21 mmol/L (22-30); Chloride 105 mmol/L (98-107); Glucose 114 mg/dL (74-99); Magnesium 2.1 mg/dL (1.6-2.3); Non-African American GFR(CKD) 89 (>60 ml/min/1.73 sqM); Potassium 3.7 mmol/L (3.5-5.1); Sodium 136 mmol/L (137-145); Total Bilirubin 0.9 mg/dL (0.2-1.3); Total Protein 6.6 g/dL (6.3-8.2)
[2024-05-07 08:11] LABS: Partial Thromboplastin Time 23.4 sec (22.0-30.0)
--- NOTE | 2024-05-07 08:13 | XR ---
EXAMINATION TYPE: XR chest 2V DATE OF EXAM: 05/07/2024 7:55 AM COMPARISON: Chest radiographs from 07/29/2023 CLINICAL INDICATION: Male, 69 years old with history of Chest Pain; [facility] TECHNIQUE: XR chest 2V Frontal and lateral views of the chest. FINDINGS: Lungs/Pleura: There is no evidence of pleural effusion, focal consolidation, or pneumothorax. Pulmonary vascularity: Unremarkable. Heart/mediastinum: Cardiomediastinal silhouette is unremarkable. Musculoskeletal: No acute osseous pathology. IMPRESSION: No acute cardiopulmonary disease/process. [facility], , 05/07/2024 8:10 AM
[2024-05-07] MEDS ORDERED: NITROGLYCERIN SL TABS 0.4 MG TAB SUBLINGUAL PRN (08:48)
[2024-05-07] MEDS: ASPIRIN 81 MG PO STA (09:10)
[2024-05-07] MEDS ORDERED: ALBUTEROL HFA INHALER INHALATION PRN (10:47)
[2024-05-07] MEDS ORDERED: ALBUTEROL NEBULIZED 2.5 MG/3 ML INHALATION PRN (10:47)
[2024-05-07] MEDS: CARBIDOPA-LEVODOPA 25-100 MG 1 EACH TAB PO SCH (13:13)
[2024-05-07] MEDS: ASPIRIN-ACET-CAFF 250-250-65MG 1 EACH TAB PO PRN (13:14)
[2024-05-07] MEDS: BACLOFEN 10 MG TAB PO SCH ×2 (13:16→20:31)
[2024-05-07] MEDS: TOPIRAMATE 100 MG TAB PO SCH (13:18)
[2024-05-07] MEDS: CYANOCOBALAMIN 500 MCG TAB PO SCH (13:18)
[2024-05-07] MEDS: CHOLECALCIFEROL 25 MCG (1000 IU) TABLET PO SCH (13:19)
[2024-05-07] MEDS: TAMSULOSIN 0.4 MG CAP.ER.24H PO SCH (13:21)
--- NOTE | 2024-05-07 16:29 | US ---
EXAMINATION TYPE: US venous doppler duplex LE LT DATE OF EXAM: 05/07/2024 4:20 PM COMPARISON: US CLINICAL INDICATION: Male, 69 years old with history of leg pain; Left leg pain, Pain TECHNIQUE: The lower extremity deep venous system is examined utilizing real time linear array sonog billy with graded compression, color doppler sonography, and spectral doppler. SIDE PERFORMED: Left FINDINGS: VESSELS IMAGED: Common Femoral Vein Deep Femoral Vein Greater Saphenous Vein * Femoral Vein Popliteal Vein Small Saphenous Vein * Proximal Calf Veins (* superficial vessels) Left Leg: Negative for DVT, Color Doppler imaging shows patency of the vessels. Spectral waveforms a re within normal limits. IMPRESSION: No ultrasound evidence for deep venous thrombosis. [facility], , 05/07/2024 4:27 PM
[2024-05-07] MEDS: traMADol 50 MG TAB PO PRN (17:10)
--- NOTE | 2024-05-07 18:29 | P.HPIM ---
History of Present Illness H&P Date: 05/07/24 Jose Ash, is a 69-year-old male who presented to [facility] emergency room with a chief complaint of chest pain He was evaluated in the emergency room vital examination on presentation revealed a temperature of 97.4 pulse 74 respiration 16 blood pressure 128/83 pulse ox 94% on room air Laboratory data revealed a white blood count of 9.0 hemoglobin 13.8 platelet count 302 sodium 136 potassium 3.7 chloride 105 CO2 21 BUN 15 creatinine 0.83 troponin level less than 0.012 Testing in the emergency room revealed chest x-ray revealed no acute cardiopulmonary disease, EKG revealed sinus rhythm with possible anterior myocardial infarction of indeterminate age Patient was admitted to medical floor for further evaluation and treatment Past Medical History Past Medical History: COPD, Dementia, GERD/Reflux, Hyperlipidemia, Hypertension, Pulmonary Embolus (PE), Sleep Apnea/CPAP/BIPAP Additional Past Medical History / Comment(s): sleep apnea (no machine), kidney stones, frequent migraines, hx of viral hepatitis ., hx of seizures with injections- spouse has a "shot raul device" to use prior . PRIOR PE X3-NOW DISSOLVED-05/2023, kidney stones History of Any Multi-Drug Resistant Organisms: None Reported Past Surgical History: Tonsillectomy Additional Past Surgical History / Comment(s): oral surgery for removal of teeth, KIDNEY STONE REMOVED, Past Anesthesia/Blood Transfusion Reactions: No Reported Reaction Additional Past Anesthesia/Blood Transfusion Reaction / Comment(s): no blood transfusion Past Psychological History: No Psychological Hx Reported Smoking Status: Former smoker Past Alcohol Use History: None Reported Past Drug Use History: None Reported - Past Family History Father Family Medical History: Unable to Obtain Mother Family Medical History: COPD, Hypertension Additional Family Medical History / Comment(s): Cerebral Palsy Medications and Allergies Home Medications Medication Instructions Recorded Confirmed Type Aspirin/Acetaminophen/Caffeine 2 tab PO QID PRN 06/06/17 05/07/24 History [Excedrin Migraine Caplet] Topiramate [Topamax] 100 mg PO DAILY 11/01/18 05/07/24 History Albuterol Sulfate [Albuterol 2 puff INHALATION RT-QID PRN 11/18/22 05/07/24 History Sulfate Hfa] Atorvastatin [Lipitor] 20 mg PO DAILY 11/18/22 05/07/24 History Azelastine HCl [Astepro] 2 spray EA NOSTRIL BID 11/18/22 05/07/24 History Montelukast [Singulair] 10 mg PO HS 11/18/22 05/07/24 History Flaxseed Oil/[place]-3 1400mg/700mg 1 cap PO HS 05/27/23 05/07/24 History [place] Extract 500 mg PO DAILY 05/27/23 05/07/24 History Albuterol Nebulized [Ventolin 2.5 mg INHALATION RT-QID PRN 10/28/23 05/07/24 History Nebulized] Apixaban [Eliquis] 5 mg PO BID 10/28/23 05/07/24 History Baclofen [Lioresal] 10 mg PO HS 10/28/23 05/07/24 History Loratadine [Claritin] 10 mg PO DAILY 10/28/23 05/07/24 History Losartan [Cozaar] 25 mg PO HS 10/28/23 05/07/24 History Tamsulosin [Flomax] 0.4 mg PO DAILY 10/28/23 05/07/24 History Melatonin 20 mg PO HS 11/30/23 05/07/24 History Lansoprazole 30 mg PO DAILY 03/08/24 05/07/24 History Baclofen [Lioresal] 20 mg PO DAILY 05/07/24 05/07/24 History Carbidopa-Levodopa 25-100 mg See Taper PO DIRECTED 05/07/24 05/07/24 History [Sinemet 25-100] Cholecalciferol (Vitamin D3) 100 mcg PO DAILY 05/07/24 05/07/24 History [Vitamin D3 (50 Mcg = 2000 Iu)] Cyanocobalamin (Vitamin B-12) 1,000 mcg PO DAILY 05/07/24 05/07/24 History [Vitamin B-12] Fluticasone/Umeclidin/[place] 1 puff INHALATION RT-HS 05/07/24 05/07/24 History [Trelegy Ellipta 200-62.5-25] Vitamin C/Biotin [Hair, Skin and 2 tab PO DAILY 05/07/24 05/07/24 History Nails Chew] Allergies Allergy/AdvReac Type Severity Reaction Status Date / Time Iodinated Contrast Media Allergy Dyspnea, Verified 05/07/24 09:29 swelling, rash tetracycline Allergy violent, Verified 05/07/24 09:29 mood swings hops AdvReac Severe beer hops Verified 05/07/24 09:29 allergy- severe migraines, nausea hydrocodone [From [place]] AdvReac Nausea & Verified 05/07/24 09:29 Vomiting Physical Exam Vitals: Vital Signs Temp Pulse Resp BP Pulse Ox 05/07/24 09:13 73 18 123/90 96 05/07/24 08:04 79 18 131/93 96 05/07/24 07:08 97.4 F L 74 16 128/83 94 L Intake and Output 05/06/24 05/07/24 05/07/24 22:59 06:59 14:59 Other: Weight 81.647 kg In general patient is alert and oriented x 3 in no distress HEENT head normocephalic and atraumatic Neck is supple no JVD no goiter no lymphadenopathy no carotid bruit Chest examination is clear to auscultation no crackles no wheezing Cardiac exam reveals regular heart sounds S1 and S2 no gallops no murmurs Abdomen is soft nontender no organomegaly with normal bowel sounds Extremity exam reveals no edema no cyanosis or clubbing Neurological examination reveals no gross focal deficits Results CBC & Chem 7: 05/07/24 07:37 05/07/24 07:37 Labs: Abnormal Lab Results - Last 24 Hours (Table) 05/07/24 Range/Units 07:37 Sodium 136 L (137-145) mmol/L Carbon Dioxide 21 L (22-30) mmol/L Glucose 114 H (74-99) mg/dL Assessment and Plan Plan: Episodes of chest pain Left lower extremity pain Underlying history of COPD Underlying history of benign prostatic hypertrophy Underlying history of Parkinson disease Underlying history of hypertension Underlying history of hyperlipidemia Previous history of pulmonary embolism Previous history of epilepsy At this time patient was seen and examined Home medications reviewed and reordered Will check D-dimer and check left lower extremity Doppler Cardiology consultation was requested Will follow closely
[2024-05-07] MEDS: TIOTROPIUM 2.5 MCG INHALER INHALATION SCH (18:37)
[2024-05-07] MEDS: SYMBICORT 160-4.5 MCG INHALER INHALATION SCH (18:37)
[2024-05-07] MEDS: APIXABAN 5 MG TAB PO SCH (20:31)
[2024-05-07] MEDS: LOSARTAN 25 MG TAB PO SCH (20:31)
[2024-05-07] MEDS: MONTELUKAST 10 MG TAB PO SCH (20:31)
[2024-05-07] MEDS: MELATONIN 5 MG TABLET PO SCH (20:32)
[2024-05-07] MEDS: AZELASTINE 137MCG/SPRAY EA NOSTRIL SCH (20:43)
[2024-05-07] MEDS ORDERED: OMEGA PO SCH (21:00)
[2024-05-07] MEDS ORDERED: FLAXSEED OIL PO SCH (21:00)
[2024-05-08] MEDS: PANTOPRAZOLE 40 MG TABLET PO SCH (04:54)
[2024-05-08 06:35] VITALS: TEMP 97.5
[2024-05-08] MEDS: LORATADINE 10 MG TAB PO SCH (08:29)
[2024-05-08] MEDS: ASPIRIN 325 MG TAB PO SCH (08:29)
[2024-05-08] MEDS: ATORVASTATIN 20 MG TAB PO SCH (08:30)
[2024-05-08 08:37] LABS: Basophils # (A) 0.06 X 10*3/uL (0.00-0.10); Basophils % (A) 0.6 %; Eosinophils # (A) 0.13 X 10*3/uL (0.04-0.35); Eosinophils % (A) 1.3 %; HCT 42.3 % (39.6-50.0); Lymphocytes # (A) 2.31 X 10*3/uL (0.90-5.00); Lymphocytes % (A) 23.7 %; MCH 28.3 pg (27.0-32.0); MCHC 33.1 g/dL (32.0-37.0); MCV 85.6 FL (80.0-97.0); Mean Platelet Volume 9.4 FL (9.5-12.2); Monocytes # (A) 0.61 X 10*3/uL (0.20-1.00); Monocytes % (A) 6.3 %; NRBC Per 100 WBC 0 X 10*3/uL (0.00-0.01); Neutrophils # (A) 6.58 X 10*3/uL (1.80-7.70); Neutrophils % (A) 67.7 %; Platelet Count 325 X 10*3/uL (140-440); RBC 4.94 X 10*6/uL (4.40-5.60); RDW 15.3 % (11.5-14.5); WBC 9.73 X 10*3/uL (4.50-10.00)
[2024-05-08 08:46] VITALS: BP 132/88; PULSE 92; RESP 16
[2024-05-08] MEDS ORDERED: NON FORMULARY DRUG (Vitamin C/Biotin [Hair, Skin And Nails Chew] 1 EACH Tab.Chew) PO SCH (09:00)
[2024-05-08 09:32] LABS: ALT 17 U/L (10-49); AST 16 U/L (14-35); Albumin 4.1 g/dL (3.8-4.9); Albumin/Globulin Ratio 1.78 Ratio (1.60-3.17); Alkaline Phosphatase 63 U/L (41-126); BUN/Creat Ratio 14.22 Ratio (12.00-20.00); Blood Urea Nitrogen 12.8 mg/dL (9.0-27.0); Calcium 9.5 mg/dL (8.7-10.3); Carbon Dioxide 20.2 mmol/L (21.6-31.8); Chloride 107 mmol/L (96-109); Chol/HDL Ratio 3.38 Ratio; Globulin 2.3 g/dL (1.6-3.3); Glucose 103 mg/dL (70-110); LDL Cholesterol,Calculated 82.7 mg/dL (0.0-131.0); Potassium 3.9 mmol/L (3.5-5.5); Sodium 138 mmol/L (135-145); Total Bilirubin 0.7 mg/dL (0.3-1.2); Total Protein 6.4 g/dL (6.2-8.2)
--- NOTE | 2024-05-08 11:12 | P.CRDCN ---
History of Present Illness History of present illness: HISTORY OF PRESENTING ILLNESS This is a pleasant 69-year-old with past medical history significant for hypertension, hyperlipidemia, pulmonary embolism and anticoagulation, worsening Lewy body dementia who presents secondary to chest pain. He follows with Dr. Mcnamara. He did have a history of PE a number of years ago however has been on anticoagulation. He was feeling his normal self however started to develop right sided chest pain that lasted for half hour and therefore came to the emergency department. Denies any associated nausea, diaphoresis or shortness of breath. EKG showed normal sinus rhythm with no significant ST or T wave abnormalities. Chest pain had resolved by the time he reached the emergency department. Denies any real palpitations with this episode. Him and his were concerned secondary to patient previously having PE. D-dimer was normal and troponins normal. Currently he states he feels back to his normal self other than he has been suffering with some lower extremity pain which has been chronic for last few weeks. He was doing some activity out in the ice prior to this episode however denies any reproducibility with movement or positioning. REVIEW OF SYSTEMS At the time of my exam: CONSTITUTIONAL: Denies fever or chills. CARDIOVASCULAR: +chest pain, no shortness of breath, orthopnea, PND or palpitations. RESPIRATORY: Denies cough. GASTROINTESTINAL: Denies abdominal pain, diarrhea, constipation, nausea or vomiting. MUSCULOSKELETAL: Denies myalgias. NEUROLOGIC: Denies numbness, tingling or weakness. ENDOCRINE: Denies fatigue, weight change, polydipsia or polyurina. GENITOURINARY: Denies burning, hematuria or urgency with micturation. HEMATOLOGIC: Denies history of anemia or bleeding. PHYSICAL EXAMINATION Vital signs reviewed. CONSTITUTIONAL: No apparent distress. HEENT: Head is normocephalic. Pupils are equal, round. Sclerae anicteric. Mucous membranes of the mouth are moist. No JVD. No carotid bruit. CHEST EXAMINATION: Lungs are clear to auscultation. No chest wall tenderness is noted on palpation or with deep breathing. HEART EXAMINATION: Regular rate and rhythm. S1, S2 heard. No murmurs, gallops or rub. ABDOMEN: Soft, nontender. Positive bowel sounds. EXTREMITIES: 2+ peripheral pulses, no lower extremity edema and no calf tenderness. NEUROLOGIC EXAMINATION: Patient is awake, alert and oriented x3. ASSESSMENT Atypical chest pain, resolved History of PE Hypertension Hyperlipidemia Chronic dyspnea PLAN Patient without any further chest pain. Symptoms overall are atypical. Check echo and if no significant findings patient be cleared from a cardiology standpoint for discharge home. Consider outpatient stress testing. Also consider monitor as most of his symptoms resolved by the time he reached the emergency department. Outpatient follow-up within 1 to 2 weeks. Past Medical History Past Medical History: COPD, Dementia, GERD/Reflux, Hyperlipidemia, Hypertension, Pulmonary Embolus (PE), Sleep Apnea/CPAP/BIPAP Additional Past Medical History / Comment(s): sleep apnea (no machine), kidney stones, frequent migraines, hx of viral hepatitis ., hx of seizures with injections- spouse has a "shot raul device" to use prior . PRIOR PE X3-NOW DISSOLVED-05/2023, kidney stones History of Any Multi-Drug Resistant Organisms: None Reported Past Surgical History: Tonsillectomy Additional Past Surgical History / Comment(s): oral surgery for removal of teeth, KIDNEY STONE REMOVED, Past Anesthesia/Blood Transfusion Reactions: No Reported Reaction Additional Past Anesthesia/Blood Transfusion Reaction / Comment(s): no blood transfusion Past Psychological History: No Psychological Hx Reported Smoking Status: Former smoker Past Alcohol Use History: None Reported Past Drug Use History: None Reported - Past Family History Father Family Medical History: Unable to Obtain Mother Family Medical History: COPD, Hypertension Additional Family Medical History / Comment(s): Cerebral Palsy Medications and Allergies Home Medications Medication Instructions Recorded Confirmed Type Aspirin/Acetaminophen/Caffeine 2 tab PO QID PRN 06/06/17 05/07/24 History [Excedrin Migraine Caplet] Topiramate [Topamax] 100 mg PO DAILY 11/01/18 05/07/24 History Albuterol Sulfate [Albuterol 2 puff INHALATION RT-QID PRN 11/18/22 05/07/24 History Sulfate Hfa] Atorvastatin [Lipitor] 20 mg PO DAILY 11/18/22 05/07/24 History Azelastine HCl [Astepro] 2 spray EA NOSTRIL BID 11/18/22 05/07/24 History Montelukast [Singulair] 10 mg PO HS 11/18/22 05/07/24 History Flaxseed Oil/[place]-3 1400mg/700mg 1 cap PO HS 05/27/23 05/07/24 History [place] Extract 500 mg PO DAILY 05/27/23 05/07/24 History Albuterol Nebulized [Ventolin 2.5 mg INHALATION RT-QID PRN 10/28/23 05/07/24 History Nebulized] Apixaban [Eliquis] 5 mg PO BID 10/28/23 05/07/24 History Baclofen [Lioresal] 10 mg PO HS 10/28/23 05/07/24 History Loratadine [Claritin] 10 mg PO DAILY 10/28/23 05/07/24 History Losartan [Cozaar] 25 mg PO HS 10/28/23 05/07/24 History Tamsulosin [Flomax] 0.4 mg PO DAILY 10/28/23 05/07/24 History Melatonin 20 mg PO HS 11/30/23 05/07/24 History Lansoprazole 30 mg PO DAILY 03/08/24 05/07/24 History Baclofen [Lioresal] 20 mg PO DAILY 05/07/24 05/07/24 History Carbidopa-Levodopa 25-100 mg See Taper PO DIRECTED 05/07/24 05/07/24 History [Sinemet 25-100] Cholecalciferol (Vitamin D3) 100 mcg PO DAILY 05/07/24 05/07/24 History [Vitamin D3 (50 Mcg = 2000 Iu)] Cyanocobalamin (Vitamin B-12) 1,000 mcg PO DAILY 05/07/24 05/07/24 History [Vitamin B-12] Fluticasone/Umeclidin/Vilanter 1 puff INHALATION RT-HS 05/07/24 05/07/24 History [Trelegy Ellipta 200-62.5-25] Vitamin C/Biotin [Hair, Skin and 2 tab PO DAILY 05/07/24 05/07/24 History Nails Chew] Allergies Allergy/AdvReac Type Severity Reaction Status Date / Time Iodinated Contrast Media Allergy Dyspnea, Verified 05/07/24 09:29 swelling, rash tetracycline Allergy violent, Verified 05/07/24 09:29 mood swings hops AdvReac Severe beer hops Verified 05/07/24 09:29 allergy- severe migraines, nausea hydrocodone [From [place]] AdvReac Nausea & Verified 05/07/24 09:29 Vomiting Physical Exam Vitals: Vital Signs Temp Pulse Pulse Resp BP BP BP 05/08/24 06:55 97.5 F L 92 16 132/88 05/08/24 02:00 97.5 F L 75 17 127/79 05/07/24 20:00 97.2 F L 88 17 118/78 05/07/24 15:00 97.8 F 83 15 130/78 05/07/24 14:24 97.8 F 76 18 127/80 05/07/24 12:54 97.6 F 81 18 122/83 Pulse Ox 05/08/24 06:55 94 L 05/08/24 02:00 92 L 05/07/24 20:00 92 L 05/07/24 15:00 93 L 05/07/24 14:24 94 L 05/07/24 12:54 92 L Intake and Output 05/07/24 05/08/24 05/08/24 22:59 06:59 14:59 Other: Voiding Method Urinal # Voids 1 3 Results 05/08/24 05:10 05/08/24 05:10 Cardiac Enzymes 05/07/24 05/08/24 Range/Units 12:03 05:10 AST 16 (14-35) U/L Troponin I <0.012 (0.000-0.034) ng/mL Lipids 05/08/24 Range/Units 05:10 Triglycerides 90.00 (0.00-149.00) mg/dL Cholesterol 143.00 (0.00-200.00) mg/dL HDL Cholesterol 42.30 (40.00-60.00) mg/dL Cholesterol/HDL Ratio 3.38 Ratio CBC 05/08/24 Range/Units 05:10 WBC 9.73 (4.50-10.00) X 10*3/uL RBC 4.94 (4.40-5.60) X 10*6/uL Hgb 14.0 (13.0-17.0) g/dL Hct 42.3 (39.6-50.0) % Plt Count 325 (140-440) X 10*3/uL Comprehensive Metabolic Panel 05/08/24 Range/Units 05:10 Sodium 138 (135-145) mmol/L Potassium 3.9 (3.5-5.5) mmol/L Chloride 107 (96-109) mmol/L Carbon Dioxide 20.2 L (21.6-31.8) mmol/L BUN 12.8 (9.0-27.0) mg/dL Creatinine 0.9 (0.6-1.5) mg/dL Glucose 103 (70-110) mg/dL Calcium 9.5 (8.7-10.3) mg/dL AST 16 (14-35) U/L ALT 17 (10-49) U/L Alkaline Phosphatase 63 (41-126) U/L Total Protein 6.4 (6.2-8.2) g/dL Albumin 4.1 (3.8-4.9) g/dL Current Medications Generic Name Dose Route Start Last Admin Trade Name Freq PRN Reason Stop Dose Admin Acetaminophen/Aspirin/Caffeine 2 each 05/07/24 12:06 05/07/24 13:14 [id number] 1 Each Tab PO 2 each QID PRN Administration Migraine Headache Albuterol Sulfate 2.5 mg 05/07/24 10:47 Albuterol Nebulized 2.5 Mg/3 Ml INHALATION RT-QID PRN Shortness Of Breath Apixaban 5 mg 05/07/24 21:00 05/08/24 08:30 Apixaban 5 Mg Tab PO 5 mg BID MARIA T Administration Protocol Aspirin 325 mg 05/08/24 09:00 05/08/24 08:29 Aspirin 325 Mg Tab PO 325 mg DAILY MARIA T Administration Atorvastatin Calcium 20 mg 05/08/24 09:00 05/08/24 08:30 Atorvastatin 20 Mg Tab PO 20 mg DAILY MARIA T Administration Azelastine HCl 2 spray 05/07/24 21:00 05/08/24 10:46 Azelastine 137mcg/[place] EA NOSTRIL Not Given BID MARIA T Baclofen 10 mg 05/07/24 21:00 05/07/24 20:31 Baclofen 10 Mg Tab PO 10 mg HS MARIA T Administration Baclofen 20 mg 05/07/24 12:15 05/08/24 08:30 Baclofen 10 Mg Tab PO 20 mg DAILY MARIA T Administration Budesonide/Formoterol Fumarate 2 puff 05/07/24 20:00 05/08/24 07:55 Symbicort 160-4.5 Mcg Inhaler INHALATION 2 puff RT-BID MARIA T Administration Carbidopa/Levodopa 0.5 each 05/07/24 11:00 05/08/24 08:30 Carbidopa-Levodopa 25-100 Mg 1 Each Tab PO 02/04/27 10:59 0.5 each BID MARIA T Administration Taper Cholecalciferol 100 mcg 05/07/24 12:15 05/08/24 08:30 Cholecalciferol 25 Mcg (1000 Iu) Tablet PO 100 mcg DAILY MARIA T Administration Cyanocobalamin 1,000 mcg 05/07/24 12:15 05/08/24 08:30 Cyanocobalamin 500 Mcg Tab PO 1,000 mcg DAILY MARIA T Administration Loratadine 10 mg 05/08/24 09:00 05/08/24 08:29 Loratadine 10 Mg Tab PO 10 mg DAILY MARIA T Administration Losartan Potassium 25 mg 05/07/24 21:00 05/07/24 20:31 Losartan 25 Mg Tab PO 25 mg HS MARIA T Administration Melatonin 20 mg 05/07/24 21:00 05/07/24 20:32 Melatonin 5 Mg Tablet PO 20 mg HS MARIA T Administration Montelukast Sodium 10 mg 05/07/24 21:00 05/07/24 20:31 Montelukast 10 Mg Tab PO 10 mg HS MARIA T Administration Nitroglycerin 0.4 mg 05/07/24 08:48 Nitroglycerin Sl Tabs 0.4 Mg Tab SUBLINGUAL Q5M PRN Chest Pain Pantoprazole Sodium 40 mg 05/08/24 07:30 05/08/24 04:54 Pantoprazole 40 Mg Tablet PO Not Given [facility] Tamsulosin HCl 0.4 mg 05/07/24 12:15 05/08/24 08:29 Tamsulosin 0.4 Mg Cap.Er.24h PO 0.4 mg DAILY MARIA T Administration Tiotropium [place] 2 puff 05/07/24 20:00 05/07/24 18:37 Tiotropium 2.5 Mcg Inhaler INHALATION 2 puff RT-HS MARIA T Administration Topiramate 100 mg 05/07/24 12:30 05/08/24 08:31 Topiramate 100 Mg Tab PO 100 mg DAILY MARIA T Administration Tramadol HCl 50 mg 05/07/24 15:54 05/08/24 08:29 Tramadol 50 Mg Tab PO 50 mg QID PRN Administration Pain Intake and Output 05/07/24 05/08/24 05/08/24 22:59 06:59 14:59 Other: Voiding Method Urinal # Voids 1 3 05/08/24 05:10 05/08/24 05:10
--- NOTE | 2024-05-08 12:21 | CA ---
Transthoracic Echo Report Name: Jose Ash Age: 69 Gender: M : 1955 Exam Date: 05/08/2024 09:36 Exam Location: [place] [facility] Ht (in): 68 Wt (lb): 180 Ordering Physician: Anya Carrero MD Attending/Referring Phys: Keyboard Operator Sheri Maciel RDCS Procedure CPT: Indications: Chest Pain Cardiac Hx: Technical Quality: Good Contrast 1: Total Dose (mL): Contrast 2: Total Dose (mL): MEASUREMENTS (Male / Female) Normal Values 2D ECHO LV Diastolic Diameter PLAX 4.4 cm 4.2 - 5.9 / 3.9 - 5.3 cm LV Systolic Diameter PLAX 2.9 cm IVS Diastolic Thickness 1.0 cm 0.6 - 1.0 / 0.6 - 0.9 cm LVPW Diastolic Thickness 1.0 cm 0.6 - 1.0 / 0.6 - 0.9 cm LV Relative Wall Thickness 0.5 LVOT Diameter 2.3 cm LV Diastolic Volume MOD BP 84.1 cm??? 67 - 155 / 56 - 104 cm??? LV Systolic Volume MOD BP 32.9 cm??? 22 - 58 / 19 - 49 cm??? LV Ejection Fraction MOD BP 60.9 % >= 55 % LV Cardiac Index MOD BP 2055.6 cm???/min???m??? LV Diastolic Volume MOD 4C 89.6 cm??? LV Systolic Volume MOD 4C 38.6 cm??? LV Ejection Fraction MOD 4C 56.9 % LV Cardiac Index MOD 4C 2045.4 cm???/min???m??? LV Diastolic Length 4C 7.7 cm LV Systolic Length 4C 6.4 cm LV Diastolic Volume MOD 2C 74.5 cm??? LV Systolic Volume MOD 2C 27.5 cm??? LV Ejection Fraction MOD 2C 63.1 % LV Cardiac Index MOD 2C 1885.8 cm???/min???m??? LV Diastolic Length 2C 8.2 cm LV Systolic Length 2C 6.2 cm LA Volume 46.0 cm??? 18 - 58 / 22 - 52 cm??? LA Volume Index 23.0 cm???/m??? 16 - 28 cm???/m??? DOPPLER AV Peak Velocity 144.8 cm/s AV Peak Gradient 8.4 mmHg AV Mean Velocity 107.1 cm/s AV Mean Gradient 5.0 mmHg AV Velocity Time Integral 28.7 cm LVOT Peak Velocity 95.0 cm/s LVOT Peak Gradient 3.6 mmHg LVOT Velocity Time Integral 16.6 cm LVOT Stroke Volume 66.3 cm??? LVOT Stroke Volume Index 33.9 ml/m??? LVOT Cardiac Index 2658.4 cm???/min???m??? AV Area Cont Eq vti 2.3 cm??? AV Area Cont Eq pk 2.6 cm??? MV Area PHT 3.1 cm??? Mitral E Point Velocity 48.9 cm/s Mitral A Point Velocity 63.2 cm/s Mitral E to A Ratio 0.8 MV Deceleration Time 242.7 ms TR Peak Velocity 196.6 cm/s TR Peak Gradient 15.5 mmHg Right Atrial Pressure 5.0 mmHg Pulmonary Artery Systolic Pressu 20.5 mmHg Right Ventricular Systolic Press 20.5 mmHg PV Peak Velocity 83.2 cm/s PV Peak Gradient 2.8 mmHg FINDINGS Left Ventricle Left ventricular ejection fraction is estimated at 55-60 %. Left ventricular cavity size normal. Left ventricular wall thickness normal. No obvious regional wall motion abnormalities. Grade 1 diastolic dysfunction. Right Ventricle Normal right ventricular size and function. Right ventricular systolic pressure within normal limits. Right Atrium Normal right atrial size. Left Atrium Normal left atrial size. Mitral Valve Structurally normal mitral valve. No evidence for mitral valve prolapse. No mitral stenosis. Trace mitral regurgitation. Aortic Valve Trileaflet aortic valve. No aortic stenosis. Trace aortic regurgitation. Tricuspid Valve Structurally normal tricuspid valve. No tricuspid stenosis. Trace tricuspid regurgitation. Pulmonic Valve Pulmonic valve not well visualized. No pulmonic stenosis. No pulmonic regurgitation. Pericardium No pericardial effusion. Aorta Normal size aortic root and proximal ascending aorta. CONCLUSIONS Left ventricular ejection fraction 55-60% RVSP 20 Trace mitral regurgitation Trace tricuspid regurgitation No pericardial effusion Previewed by: Dr. Nikolai Whitten DO (Electronically Signed) Final Date: 08 May 2024 12:19
--- NOTE | 2024-05-08 13:01 | P.DS ---
Providers Date of admission: 05/07/24 08:48 Expected date of discharge: 05/08/24 Attending physician: Anya Carrero Consults: 05/07/24 08:48 Consult Physician Urgent Consulting Provider: Diego Porras Consult Reason/Comments: chest pain Do you want consulting provider notified?: Yes Primary care physician: Sheyla Mendenhall Hospital Course: Discharge diagnosis Episodes of chest pain Left lower extremity pain Underlying history of COPD Underlying history of benign prostatic hypertrophy Underlying history of Parkinson disease Underlying history of hypertension Underlying history of hyperlipidemia Previous history of pulmonary embolism Previous history of epilepsy Hospital course Jose Ash, is a 69-year-old male who presented to [facility] emergency room with a chief complaint of chest pain He was evaluated in the emergency room vital examination on presentation revealed a temperature of 97.4 pulse 74 respiration 16 blood pressure 128/83 pulse ox 94% on room air Laboratory data revealed a white blood count of 9.0 hemoglobin 13.8 platelet count 302 sodium 136 potassium 3.7 chloride 105 CO2 21 BUN 15 creatinine 0.83 troponin level less than 0.012 Testing in the emergency room revealed chest x-ray revealed no acute cardiopulmonary disease, EKG revealed sinus rhythm with possible anterior myocardial infarction of indeterminate age Patient was admitted to medical floor for further evaluation and treatment On 05/08/2024 patient is alert and oriented x 3. Patient eager to be DC'd home. 2D echo completed follow-up with cardiology services outpatient no further workup inpatient per cardiology services possible outpatient stress test. Patient denies chest pain or shortness of breath. Patient denies nausea vomiting or diarrhea. Patient denies any urinary burning or frequency Patient Condition at Discharge: Stable Plan - Discharge Summary New Discharge Prescriptions: Continue Aspirin/Acetaminophen/Caffeine [Excedrin Migraine Caplet] 2 tab PO QID PRN PRN Reason: Migraine Headache Topiramate [Topamax] 100 mg PO DAILY Montelukast [Singulair] 10 mg PO HS Flaxseed Oil/[place]-3 1400mg/700mg 1 cap PO HS Tamsulosin [Flomax] 0.4 mg PO DAILY Losartan [Cozaar] 25 mg PO HS Loratadine [Claritin] 10 mg PO DAILY Albuterol Nebulized [Ventolin Nebulized] 2.5 mg INHALATION RT-QID PRN PRN Reason: Shortness Of Breath Apixaban [Eliquis] 5 mg PO BID Baclofen [Lioresal] 10 mg PO HS Carbidopa-Levodopa 25-100 mg [Sinemet 25-100 mg] See Taper PO DIRECTED Azelastine HCl [Astepro] 2 spray EA NOSTRIL BID Albuterol Sulfate [Albuterol Sulfate Hfa] 2 puff INHALATION RT-QID PRN PRN Reason: Shortness Of Breath Atorvastatin [Lipitor] 20 mg PO DAILY [place] Extract 500 mg PO DAILY Melatonin 20 mg PO HS Lansoprazole 30 mg PO DAILY Baclofen [Lioresal] 20 mg PO DAILY Vitamin C/Biotin [Hair, Skin and Nails Chew] 2 tab PO DAILY Fluticasone/Umeclidin/Vilanter [Trelegy Ellipta 200-62.5-25] 1 puff INHALATION RT-HS Cyanocobalamin (Vitamin B-12) [Vitamin B-12] 1,000 mcg PO DAILY Cholecalciferol (Vitamin D3) [Vitamin D3 (50 Mcg = 2000 Iu)] 100 mcg PO DAILY Discharge Medication List Aspirin/Acetaminophen/Caffeine [Excedrin Migraine Caplet] 2 tab PO QID PRN 06/06/17 [History] Topiramate [Topamax] 100 mg PO DAILY 11/01/18 [History] Albuterol Sulfate [Albuterol Sulfate Hfa] 2 puff INHALATION RT-QID PRN 11/18/22 [History] Atorvastatin [Lipitor] 20 mg PO DAILY 11/18/22 [History] Azelastine HCl [Astepro] 2 spray EA NOSTRIL BID 11/18/22 [History] Montelukast [Singulair] 10 mg PO HS 11/18/22 [History] Flaxseed Oil/[place]-3 1400mg/700mg 1 cap PO HS 05/27/23 [History] [place] Extract 500 mg PO DAILY 05/27/23 [History] Albuterol Nebulized [Ventolin Nebulized] 2.5 mg INHALATION RT-QID PRN 10/28/23 [History] Apixaban [Eliquis] 5 mg PO BID 10/28/23 [History] Baclofen [Lioresal] 10 mg PO HS 10/28/23 [History] Loratadine [Claritin] 10 mg PO DAILY 10/28/23 [History] Losartan [Cozaar] 25 mg PO HS 10/28/23 [History] Tamsulosin [Flomax] 0.4 mg PO DAILY 10/28/23 [History] Melatonin 20 mg PO HS 11/30/23 [History] Lansoprazole 30 mg PO DAILY 03/08/24 [History] Baclofen [Lioresal] 20 mg PO DAILY 05/07/24 [History] Carbidopa-Levodopa 25-100 mg [Sinemet 25-100 mg] See Taper PO DIRECTED 05/07/24 [History] Cholecalciferol (Vitamin D3) [Vitamin D3 (50 Mcg = 2000 Iu)] 100 mcg PO DAILY 05/07/24 [History] Cyanocobalamin (Vitamin B-12) [Vitamin B-12] 1,000 mcg PO DAILY 05/07/24 [History] Fluticasone/Umeclidin/Vilanter [Trelegy Ellipta 200-62.5-25] 1 puff INHALATION RT-HS 05/07/24 [History] Vitamin C/Biotin [Hair, Skin and Nails Chew] 2 tab PO DAILY 05/07/24 [History] Follow up Appointment(s)/Referral(s): Sheyla Mendenhall MD [Primary Care Provider] - 1-2 days Nikolai Whitten DO [STAFF PHYSICIAN] - 1 Week Discharge Disposition: HOME SELF-CARE
== END 2024-05-08 14:23 | disposition home or self-care (01) ==
LOC: EC 07:04 → 6NMEDSUR 08:48
PROVIDERS: ADMIT Internal Medicine; ATTEND Internal Medicine
DX: R07.89 Other chest pain (principal); M79.605 Pain in left leg; J44.9 Chronic obstructive pulmonary disease, unspecified; E78.00 Pure hypercholesterolemia, unspecified; I10 Essential (primary) hypertension; N40.0 Benign prostatic hyperplasia without lower urinary tract symptoms; G20.A1 Parkinson's disease without dyskinesia, without mention of fluctuations; G40.909 Epilepsy, unspecified, not intractable, without status epilepticus; G31.83 Neurocognitive disorder with Lewy bodies; F02.80 Dementia in other diseases classified elsewhere, unspecified severity, without behavioral disturbance, psychotic disturbance, mood disturbance, and anxiety; R07.2 Precordial pain; Z79.01 Long term (current) use of anticoagulants; Z79.51 Long term (current) use of inhaled steroids; Z79.899 Other long term (current) drug therapy; Z88.1 Allergy status to other antibiotic agents; Z91.041 Radiographic dye allergy status; Z88.5 Allergy status to narcotic agent; Z91.048 Other nonmedicinal substance allergy status; Z87.891 Personal history of nicotine dependence; Z86.711 Personal history of pulmonary embolism
CPT/HCPCS: 99285; 36415; 94640 ×3; 93005; 93306; 85379; 80061; 80053 ×2; 83735; 84484; 85025 ×2; 85610; 85730; 71046; 93971; G0378 ×2

== ENCOUNTER 2024-05-14 13:01 | Observation (INO) | payer MEDICARE ==
--- NOTE | 2024-05-14 13:32 | ED ---
Chest Pain HPI - General Source: patient, RN notes reviewed Mode of arrival: wheelchair Limitations: no limitations <Beatrice De Santiago - Last Filed: 05/14/24 13:31> - General Source: patient, RN notes reviewed Mode of arrival: wheelchair Limitations: no limitations <Reymundo Ho - Last Filed: 05/14/24 16:59> - General Chief Complaint: Chest Pain Stated Complaint: chest pain Time Seen by Provider: 05/14/24 13:31 - History of Present Illness Initial Comments: Quick note: 69-year-old male presented the ER for evaluation of chest pain. Patient states it is a sharp pain. Family report patient appears to be "panting" for the past hour. Patient admits to feeling dizzy and lightheaded as if he is going to pass out. (Beatrice De Santiago) Patient is a 69-year-old male present to the emergency department with concerns with chest discomfort. Onset of symptoms was prior to arrival while walking into his doctor's office. Discomfort was severe however now is rated 4/10. Discomfort is sternal region without radiation. Discomfort feels somewhat sharp. Patient has some lightheadedness. No dyspnea, nausea or diaphoresis. Patient did have similar symptoms a week ago. Patient has previously seen Dr. Mcnamara. (Reymundo Ho) - Related Data Home Medications Medication Instructions Recorded Confirmed Aspirin/Acetaminophen/Caffeine 2 tab PO QID PRN 06/06/17 05/07/24 [Excedrin Migraine Caplet] Topiramate [Topamax] 100 mg PO DAILY 11/01/18 05/07/24 Albuterol Sulfate [Albuterol 2 puff INHALATION RT-QID PRN 11/18/22 05/07/24 Sulfate Hfa] Atorvastatin [Lipitor] 20 mg PO DAILY 11/18/22 05/07/24 Azelastine HCl [Astepro] 2 spray EA NOSTRIL BID 11/18/22 05/07/24 Montelukast [Singulair] 10 mg PO HS 11/18/22 05/07/24 Flaxseed Oil/[place]-3 1400mg/700mg 1 cap PO HS 05/27/23 05/07/24 [place] Extract 500 mg PO DAILY 05/27/23 05/07/24 Albuterol Nebulized [Ventolin 2.5 mg INHALATION RT-QID PRN 10/28/23 05/07/24 Nebulized] Apixaban [Eliquis] 5 mg PO BID 10/28/23 05/07/24 Baclofen [Lioresal] 10 mg PO HS 10/28/23 05/07/24 Loratadine [Claritin] 10 mg PO DAILY 10/28/23 05/07/24 Losartan [Cozaar] 25 mg PO HS 10/28/23 05/07/24 Tamsulosin [Flomax] 0.4 mg PO DAILY 10/28/23 05/07/24 Melatonin 20 mg PO HS 11/30/23 05/07/24 Lansoprazole 30 mg PO DAILY 03/08/24 05/07/24 Baclofen [Lioresal] 20 mg PO DAILY 05/07/24 05/07/24 Carbidopa-Levodopa 25-100 mg See Taper PO DIRECTED 05/07/24 05/07/24 [Sinemet 25-100 mg] Cholecalciferol (Vitamin D3) 100 mcg PO DAILY 05/07/24 05/07/24 [Vitamin D3 (50 Mcg = 2000 Iu)] Cyanocobalamin (Vitamin B-12) 1,000 mcg PO DAILY 05/07/24 05/07/24 [Vitamin B-12] Fluticasone/Umeclidin/Vilanter 1 puff INHALATION RT-HS 05/07/24 05/07/24 [Trelegy Ellipta 200-62.5-25] Vitamin C/Biotin [Hair, Skin and 2 tab PO DAILY 05/07/24 05/07/24 Nails Chew] Allergies Allergy/AdvReac Type Severity Reaction Status Date / Time Iodinated Contrast Media Allergy Dyspnea, Verified 05/14/24 13:26 swelling, rash tetracycline Allergy violent, Verified 05/14/24 13:26 mood swings hops AdvReac Severe beer hops Verified 05/14/24 13:26 allergy- severe migraines, nausea hydrocodone [From [place]] AdvReac Nausea & Verified 05/14/24 13:26 Vomiting Review of Systems ROS Other: All systems not noted in ROS Statement are negative. <Beatrice De Santiago - Last Filed: 05/14/24 13:31> ROS Other: All systems not noted in ROS Statement are negative. Constitutional: Denies: fever Eyes: Denies: eye pain ENT: Denies: ear pain Respiratory: Denies: cough, dyspnea Cardiovascular: Reports: as per HPI, chest pain Endocrine: Denies: fatigue Gastrointestinal: Denies: abdominal pain Musculoskeletal: Denies: back pain <Reymundo Ho - Last Filed: 05/14/24 16:59> ROS Statement: Those systems with pertinent positive or pertinent negative responses have been documented in the HPI. EKG Findings - EKG Results: EKG: interpreted by ERMD, sinus rhythm, normal axis, normal QRS, normal ST/T <Reymundo Ho - Last Filed: 05/14/24 16:59> Past Medical History Past Medical History: COPD, Dementia, GERD/Reflux, Hyperlipidemia, Hypertension, Pulmonary Embolus (PE), Sleep Apnea/CPAP/BIPAP Additional Past Medical History / Comment(s): sleep apnea (no machine), kidney stones, frequent migraines, hx of viral hepatitis ., hx of seizures with injections- spouse has a "shot raul device" to use prior . PRIOR PE X3-NOW DISSOLVED-05/2023, kidney stones History of Any Multi-Drug Resistant Organisms: None Reported Past Surgical History: Tonsillectomy Additional Past Surgical History / Comment(s): oral surgery for removal of teeth, KIDNEY STONE REMOVED, Past Anesthesia/Blood Transfusion Reactions: No Reported Reaction Additional Past Anesthesia/Blood Transfusion Reaction / Comment(s): no blood transfusion Past Psychological History: No Psychological Hx Reported Smoking Status: Former smoker Past Alcohol Use History: None Reported Past Drug Use History: None Reported - Past Family History Father Family Medical History: Unable to Obtain Mother Family Medical History: COPD, Hypertension Additional Family Medical History / Comment(s): Cerebral Palsy <Beatrice De Santiago - Last Filed: 05/14/24 13:31> General Exam Limitations: no limitations <Beatrice De Santiago - Last Filed: 05/14/24 13:31> Limitations: no limitations General appearance: alert, in no apparent distress Head exam: Present: normocephalic Neck exam: Present: normal inspection Respiratory exam: Present: normal lung sounds bilaterally. Absent: chest wall tenderness Cardiovascular Exam: Present: regular rate, normal rhythm, normal heart sounds Expanded Peripheral pulses: 2+: Radial (R), Radial (L), Posterior Tibialis (R), Posterior Tibialis (L) GI/Abdominal exam: Present: soft. Absent: tenderness Extremities exam: Present: normal inspection. Absent: pedal edema, calf tenderness Neurological exam: Present: alert Psychiatric exam: Present: normal affect, normal mood Skin exam: Present: normal color <Reymundo Ho - Last Filed: 05/14/24 16:59> - General Exam Comments Initial Comments: Visual Physical Exam Vital signs reviewed General: Well-appearing, nontoxic, no acute distress. Head: Normocephalic, atraumatic Eyes: PERRLA, EOMI ENT: Airway patent Chest: Nonlabored breathing Skin: No visual rash, normal skin tone Neuro: Alert and oriented 3 Musculoskeletal: No gross abnormalities (Beatrice De Santiago) Course Vital Signs 05/14/24 13:22 Temperature 97.8 F Pulse Rate 93 Respiratory 20 Rate Blood Pressure 119/79 O2 Sat by Pulse 95 Oximetry Chest Pain MDM <Beatrice De Santiago - Last Filed: 05/14/24 13:31> <Reymundo Ho - Last Filed: 05/14/24 16:59> - MDM I performed the quick note portion of this chart. Electronically signed by Beatrice De Santiago PA-C (Beatrice De Santiago) Was pt. sent in by a medical professional or institution ([facility], SALES AMBASSADOR, urgent care, hospital, or half-way...) When possible be specific @ -No Did you speak to anyone other than the patient for history (EMS, parent, family, police, friend...)? What history was obtained from this source @ -Family's present helps provide history including patient being here a week ago with similar symptoms Did you review nursing and triage notes (agree or disagree)? Why? @ -I reviewed and agree with nursing and triage notes Were old charts reviewed (outside hosp., previous admission, EMS record, old EKG, old radiological studies, urgent care reports/EKG's, half-way records)? Report findings @ -Admission from previous week reviewed Differential Diagnosis (chest pain, altered mental status, abdominal pain women, abdominal pain men, vaginal bleeding, weakness, fever, dyspnea, syncope, headache, dizziness, GI bleed, back pain, seizure, CVA, palpatations, mental health, musculoskeletal)? @ -Differential Chest Pain: Stable Angina, Unstable Angina, STEMI, NSTEMI Aortic Dissection, Pneumothorax, Musculoskeletal, Esophageal Spasm GERD, Cholecystitis, Pancreatitis, Zoster, this is not meant to be an all-inclusive list. EKG interpreted by me (3pts min.). @ -As above X-rays interpreted by me (1pt min.). @ -Chest x-ray shows no acute process CT interpreted by me (1pt min.). @ -None done U/S interpreted by me (1pt. min.). @ -None done What testing was considered but not performed or refused? (CT, X-rays, U/S, labs)? Why? @ -None What meds were considered but not given or refused? Why? @ -None Did you discuss the management of the patient with other professionals (professionals i.e. , PA, SALES AMBASSADOR, lab, RT, psych nurse, social work administrator, paper cup machine tender, teacher, transit police officer, mental health case manager)? Give summary @ -Case was discussed with Dr. Carrero who will admit covering Dr. Henry Was smoking cessation discussed for >3mins.? @ -No Was critical care preformed (if so, how long)? @ -No Were there social determinants of health that impacted care today? How? (Homelessness, low income, unemployed, alcoholism, drug addiction, transportation, low edu. Level, literacy, decrease access to med. care, longterm, rehab)? @ -No Was there de-escalation of care discussed even if they declined (Discuss DNR or withdrawal of care, Hospice)? DNR status @ -No What co-morbidities impacted this encounter? (DM, HTN, Smoking, COPD, CAD, Cancer, CVA, ARF, Chemo, Hep., AIDS, mental health diagnosis, sleep apnea, morbid obesity)? @ -Patient does have cardiac history Was patient admitted / discharged? Hospital course, mention meds given and route, prescriptions, significant lab abnormalities, going to OR and other p ertinent info. @ -Patient presents with chest discomfort however still has some discomfort on reevaluation. Patient updated on results. Patient and family updated on plan. Patient will be admitted. Admission orders written. Undiagnosed new problem with uncertain prognosis? @ -No Drug Therapy requiring intensive monitoring for toxicity (Heparin, Nitro, Insulin, Cardizem)? @ -No Were any procedures done? @ -No Diagnosis/symptom? @ -Chest pain Acute, or Chronic, or Acute on Chronic? @ -Acute Uncomplicated (without systemic symptoms) or Complicated (systemic symptoms)? @ -Default Side effects of treatment? @ -No Exacerbation, Progression, or Severe Exacerbation? @ -No Poses a threat to life or bodily function? How? (Chest pain, [place], [place], pneumonia, PE, COPD, DKA, ARF, appy, cholecystitis, CVA, Diverticulitis, Homicidal, Suicidal, threat to staff... and all critical care pts) @ -No (Reymundo Ho) Disposition <Beatrice De Santiago - Last Filed: 05/14/24 13:31> Is patient prescribed a controlled substance at d/c from ED?: No Time of Disposition: 16:59 <Reymundo Ho - Last Filed: 05/14/24 16:59> Clinical Impression: Chest pain Disposition: ADMITTED IP TO THIS HOSP Referrals: Sheyla Mendenhall MD [Primary Care Provider] - 1-2 days
--- NOTE | 2024-05-14 14:23 | XR ---
EXAMINATION TYPE: XR chest 2V DATE OF EXAM: 05/14/2024 2:15 PM COMPARISON: 05/07/2024 CLINICAL INDICATION: Male, 69 years old with history of Chest Pain: Shortness of breath TECHNIQUE: XR chest 2V views of the chest are obtained. FINDINGS: Scattered senescent parenchymal changes noted. Hyperinflation compatible with COPD. No evidence for infiltrate. No evidence for atelectasis. Heart size is stable. Mediastinal structures are stable and grossly unremarkable. No evidence for hilar prominence. Degenerative changes dorsal spine. IMPRESSION: 1. No evidence for acute pulmonary disease. [facility], , 05/14/2024 2:20 PM
[2024-05-14 15:27] LABS: Basophils % (A) 0 %; Eosinophils # (A) 0.1 k/uL (0-0.7); Eosinophils % (A) 1 %; HCT 46.3 % (39.0-53.0); HGB 14.8 gm/dL (13.0-17.5); Lymphocytes # (A) 1.5 k/uL (1.0-4.8); Lymphocytes % (A) 16 %; MCH 28.2 pg (25.0-35.0); MCV 88.1 fL (80.0-100.0); Mean Platelet Volume 7.3; Monocytes # (A) 0.5 k/uL (0-1.0); Monocytes % (A) 5 %; Neutrophils # (A) 7.2 k/uL (1.3-7.7); Neutrophils % (A) 77 %; Platelet Count 336 k/uL (150-450); RBC 5.26 m/uL (4.30-5.90); WBC 9.4 k/uL (3.8-10.6)
[2024-05-14 15:36] LABS: ALT 23 U/L (4-49); AST 19 U/L (17-59); African American GFR (CKD) >90 (>60 ml/min/1.73 sqM); Albumin 4.6 g/dL (3.5-5.0); Alkaline Phosphatase 59 U/L (38-126); Anion Gap 12 mmol/L; Blood Urea Nitrogen 11 mg/dL (9-20); Calcium 9.8 mg/dL (8.4-10.2); Carbon Dioxide 19 mmol/L (22-30); Chloride 104 mmol/L (98-107); Glucose 107 mg/dL (74-99); Magnesium 2.2 mg/dL (1.6-2.3); Non-African American GFR(CKD) >90 (>60 ml/min/1.73 sqM); Potassium 4.1 mmol/L (3.5-5.1); Sodium 135 mmol/L (137-145); Total Bilirubin 1.2 mg/dL (0.2-1.3); Total Protein 7.2 g/dL (6.3-8.2)
[2024-05-14 15:42] LABS: Partial Thromboplastin Time 23.6 sec (22.0-30.0)
[2024-05-14] MEDS ORDERED: NITROGLYCERIN SL TABS 0.4 MG TAB SUBLINGUAL PRN (17:00)
[2024-05-14] MEDS ORDERED: ALBUTEROL HFA INHALER INHALATION PRN (17:42)
[2024-05-14] MEDS: ASPIRIN 81 MG PO STA (18:32)
[2024-05-14] MEDS: NITROGLYCERIN OINT 1 INCH/GM PACKET TOPICAL SCH (18:34)
[2024-05-14] MEDS: CARBIDOPA-LEVODOPA 25-100 MG 1 EACH TAB PO SCH (19:07)
[2024-05-14] MEDS: ASPIRIN-ACET-CAFF 250-250-65MG 1 EACH TAB PO PRN (19:50)
[2024-05-14] MEDS: ALBUTEROL NEBULIZED 2.5 MG/3 ML INHALATION PRN (20:26)
[2024-05-14] MEDS: SYMBICORT 160-4.5 MCG INHALER INHALATION SCH (20:26)
[2024-05-14] MEDS: TIOTROPIUM 2.5 MCG INHALER INHALATION SCH (20:27)
[2024-05-14] MEDS ORDERED: FLAXSEED OIL PO SCH (21:00)
[2024-05-14] MEDS ORDERED: OMEGA PO SCH (21:00)
[2024-05-14] MEDS: MONTELUKAST 10 MG TAB PO SCH (22:18)
[2024-05-14] MEDS: APIXABAN 5 MG TAB PO SCH (22:18)
[2024-05-14] MEDS: LOSARTAN 25 MG TAB PO SCH (22:18)
[2024-05-14] MEDS: BACLOFEN 10 MG TAB PO SCH ×2 (22:26→22:28)
[2024-05-14] MEDS: MELATONIN 5 MG TABLET PO SCH (22:26)
[2024-05-14] MEDS: AZELASTINE 137MCG/SPRAY EA NOSTRIL SCH (22:43)
[2024-05-15 01:45] VITALS: TEMP 97.5
[2024-05-15 08:56] VITALS: BP 121/72; RESP 15
[2024-05-15] MEDS ORDERED: OLIVE LEAF EXTRACT PO SCH (09:00)
[2024-05-15 09:04] LABS: Chol/HDL Ratio 3.41 Ratio
[2024-05-15 09:05] VITALS: PULSE 72
[2024-05-15 09:54] LABS: LDL Cholesterol,Calculated 58.8 mg/dL (0.0-131.0)
[2024-05-15] MEDS: ASCORBIC ACID 500 MG TAB PO SCH (10:28)
[2024-05-15] MEDS: ATORVASTATIN 20 MG TAB PO SCH (10:29)
[2024-05-15] MEDS: CHOLECALCIFEROL 25 MCG (1000 IU) TABLET PO SCH (10:29)
[2024-05-15] MEDS: CYANOCOBALAMIN 500 MCG TAB PO SCH (10:29)
[2024-05-15] MEDS: LORATADINE 10 MG TAB PO SCH (10:30)
[2024-05-15] MEDS: PANTOPRAZOLE 40 MG TABLET PO SCH (10:30)
[2024-05-15] MEDS: TAMSULOSIN 0.4 MG CAP.ER.24H PO SCH (10:30)
[2024-05-15] MEDS: TOPIRAMATE 100 MG TAB PO SCH (10:30)
[2024-05-15] MEDS: ASPIRIN 325 MG TAB PO SCH (10:32)
--- NOTE | 2024-05-15 11:10 | P.CRDCN ---
History of Present Illness Consult date: 05/15/24 Consult reason: chest pain History of present illness: This is a 69-year-old male patient of Dr. Barnes with past medical history of bilateral pulmonary emboli status post EKOS procedure on Eliquis, COPD, hypertension, worsening Lewy body dementia. We have been asked to evaluate the patient for chest pain. Patient had a recent hospitalization on 05/07 - 05/[address] Whitten at that time. Chest pain was atypical and he was cleared for discharge with plan for outpatient stress testing. Patient states that he was at a doctor's office today at the [facility] a [place], could not recall the name of the physician that he was going to see. While he was sitting in the waiting room he developed sharp chest pain in the midsternal area. It occurred while he was at rest. He told the staff about this and he was sent to the [facility] for evaluation. Blood pressure 121/72, heart rate in the 70s, pulse ox 94% on room air. -EKG: Sinus rhythm with no significant ST or T wave abnormalities -Chest x-ray: No acute process. -Laboratory studies: CBC, INR, troponins x 3 negative. Creatinine 0.78. Triglycerides 144, cholesterol 124, LDL 58. -Home cardiac medications: Eliquis 5 mg twice daily, atorvastatin 20 mg daily, losartan 25 mg at bedtime. -Echocardiogram performed 05/07/2024 reveals EF of 55 to 60%, RVSP 20, trace mitral regurgitation and trace tricuspid regurgitation. -Tilt table test performed 11/03/2023: Intra-atrial delay normal CO interval, normal QRS, normal ST segments on the twelve-lead EKG. Normal heart rate and blood pressure response to up right leg tilting. Review Of Systems: At the time of my exam: CONSTITUTIONAL: Denies fever or chills. HEENT: Denies blurred vision, vision changes, or eye pain. Denies hemoptysis CARDIOVASCULAR: Denies chest pain. Denies orthopnea. Denies PND. Denies palpita tions RESPIRATORY: Denies shortness of breath. GASTROINTESTINAL: Denies abdominal pain. Denies nausea or vomiting. HEMATOLOGIC: Denies bleeding disorders. GENITOURINARY: Denies any blood in urine. SKIN: Denies puritis. Denies rash. Physical examination: Gen: This is 69-year-old male in no acute distress VS: reviewed HEENT: Head is atraumatic, normocephalic. Pupils equal, round. Sclerae is anic teric. NECK: Supple. No JVD. LUNGS: Clear to auscultation. No wheezes or rhonchi. No intercostal retractions. HEART: Regular rate and rhythm. No murmur. ABDOMEN: Soft No tenderness. EXTREMITIES: No pedal edema. No calf tenderness. NEUROLOGICAL: Patient is awake, alert and oriented x3. Assessment: Atypical chest pain, acute coronary syndrome ruled out History of bilateral pulmonary emboli status post EKOS on Eliquis COPD Hypertension Lewy body dementia Plan: Resume patient's home cardiac medications D-dimer came back normal and patient is cleared for discharge from cardiology perspective. Thank you kindly for this consultation. Nurse practitioner note has been reviewed, I agree with documented findings and plan of care. Patient was seen and examined. Past Medical History Past Medical History: COPD, Dementia, GERD/Reflux, Hyperlipidemia, Hypertension, Pulmonary Embolus (PE), Sleep Apnea/CPAP/BIPAP Additional Past Medical History / Comment(s): sleep apnea (no machine), kidney stones, frequent migraines, hx of viral hepatitis ., hx of seizures with injections- spouse has a "shot raul device" to use prior . PRIOR PE X3-NOW DISSOLVED-05/2023, kidney stones History of Any Multi-Drug Resistant Organisms: None Reported Past Surgical History: Tonsillectomy Additional Past Surgical History / Comment(s): oral surgery for removal of teet h, KIDNEY STONE REMOVED, Past Anesthesia/Blood Transfusion Reactions: No Reported Reaction Additional Past Anesthesia/Blood Transfusion Reaction / Comment(s): no blood transfusion Smoking Status: Former smoker - Past Family History Father Family Medical History: Unable to Obtain Mother Family Medical History: COPD, Hypertension Additional Family Medical History / Comment(s): Cerebral Palsy Medications and Allergies Home Medications Medication Instructions Recorded Confirmed Type Aspirin/Acetaminophen/Caffeine 2 tab PO QID PRN 06/06/17 05/14/24 History [Excedrin Migraine Caplet] Topiramate [Topamax] 100 mg PO DAILY 11/01/18 05/14/24 History Albuterol Sulfate [Albuterol 2 puff INHALATION RT-QID PRN 11/18/22 05/14/24 History Sulfate Hfa] Atorvastatin [Lipitor] 20 mg PO DAILY 11/18/22 05/14/24 History Azelastine HCl [Astepro] 2 spray EA NOSTRIL BID 11/18/22 05/14/24 History Montelukast [Singulair] 10 mg PO HS 11/18/22 05/14/24 History Flaxseed Oil/[place]-3 1400mg/700mg 1 cap PO HS 05/27/23 05/14/24 History [place] Extract 500 mg PO DAILY 05/27/23 05/14/24 History Albuterol Nebulized [Ventolin 2.5 mg INHALATION RT-QID PRN 10/28/23 05/14/24 History Nebulized] Apixaban [Eliquis] 5 mg PO BID 10/28/23 05/14/24 History Baclofen [Lioresal] 10 mg PO HS 10/28/23 05/14/24 History Loratadine [Claritin] 10 mg PO DAILY 10/28/23 05/14/24 History Losartan [Cozaar] 25 mg PO HS 10/28/23 05/14/24 History Tamsulosin [Flomax] 0.4 mg PO DAILY 10/28/23 05/14/24 History Melatonin 20 mg PO HS 11/30/23 05/14/24 History Lansoprazole 30 mg PO DAILY 03/08/24 05/14/24 History Baclofen [Lioresal] 20 mg PO DAILY 05/07/24 05/14/24 History Carbidopa-Levodopa 25-100 mg 1 tab PO TID 05/07/24 05/14/24 History [Sinemet 25-100 mg] Cholecalciferol (Vitamin D3) 100 mcg PO DAILY 05/07/24 05/14/24 History [Vitamin D3 (50 Mcg = 2000 Iu)] Cyanocobalamin (Vitamin B-12) 1,000 mcg PO DAILY 05/07/24 05/14/24 History [Vitamin B-12] Fluticasone/Umeclidin/Vilanter 1 puff INHALATION RT-HS 05/07/24 05/14/24 History [Trelegy Ellipta 200-62.5-25] Vitamin C/Biotin [Hair, Skin and 2 tab PO DAILY 05/07/24 05/14/24 History Nails Chew] Allergies Allergy/AdvReac Type Severity Reaction Status Date / Time Iodinated Contrast Media Allergy Dyspnea, Verified 05/14/24 17:12 swelling, rash tetracycline Allergy violent, Verified 05/14/24 17:12 mood swings hops AdvReac Severe beer hops Verified 05/14/24 17:12 allergy- severe migraines, nausea hydrocodone [From [place]] AdvReac Nausea & Verified 05/14/24 17:12 Vomiting Physical Exam Vitals: Vital Signs Temp Pulse Pulse Resp BP BP Pulse Ox 05/15/24 01:21 97.5 F L 75 16 103/65 92 L 05/14/24 23:28 97.6 F 87 18 124/74 94 L 05/14/24 23:01 75 18 138/85 98 05/14/24 21:55 98.2 F 83 18 128/83 98 05/14/24 21:00 98.2 F 84 18 130/84 97 05/14/24 20:38 87 05/14/24 20:27 84 05/14/24 13:22 97.8 F 93 20 119/79 95 Intake and Output 05/14/24 05/15/24 05/15/24 22:59 06:59 14:59 Other: Weight 81.647 kg Results 05/14/24 15:17 05/14/24 15:17 Cardiac Enzymes 05/14/24 05/14/24 05/14/24 Range/Units 15:17 15:17 18:42 AST 19 (17-59) U/L Troponin I <0.012 <0.012 (0.000-0.034) ng/mL 05/14/24 Range/Units 22:40 AST (17-59) U/L Troponin I <0.012 (0.000-0.034) ng/mL Coagulation 05/14/24 Range/Units 15:17 PT 11.0 (10.0-12.5) sec APTT 23.6 (22.0-30.0) sec CBC 05/14/24 Range/Units 15:17 WBC 9.4 (3.8-10.6) k/uL RBC 5.26 (4.30-5.90) m/uL Hgb 14.8 (13.0-17.5) gm/dL Hct 46.3 (39.0-53.0) % Plt Count 336 (150-450) k/uL Comprehensive Metabolic Panel 05/14/24 Range/Units 15:17 Sodium 135 L (137-145) mmol/L Potassium 4.1 (3.5-5.1) mmol/L Chloride 104 (98-107) mmol/L Carbon Dioxide 19 L (22-30) mmol/L BUN 11 (9-20) mg/dL Creatinine 0.78 (0.66-1.25) mg/dL Glucose 107 H (74-99) mg/dL Calcium 9.8 (8.4-10.2) mg/dL AST 19 (17-59) U/L ALT 23 (4-49) U/L Alkaline Phosphatase 59 (38-126) U/L Total Protein 7.2 (6.3-8.2) g/dL Albumin 4.6 (3.5-5.0) g/dL Current Medications Generic Name Dose Route Start Last Admin Trade Name Freq PRN Reason Stop Dose Admin Acetaminophen/Aspirin/Caffeine 2 each 05/14/24 17:42 05/14/24 19:50 [id number] 1 Each Tab PO 2 each QID PRN Administration Migraine Headache Albuterol Sulfate 2.5 mg 05/14/24 17:42 05/14/24 20:26 Albuterol Nebulized 2.5 Mg/3 Ml INHALATION 2.5 mg RT-QID PRN Administration Shortness Of Breath Apixaban 5 mg 05/14/24 21:00 05/14/24 22:18 Apixaban 5 Mg Tab PO 5 mg BID MARIA T Administration Protocol Ascorbic Acid 500 mg 05/15/24 09:00 Ascorbic Acid 500 Mg Tab PO DAILY [facility] Aspirin 325 mg 05/15/24 09:00 Aspirin 325 Mg Tab PO DAILY [facility] Atorvastatin Calcium 20 mg 05/15/24 09:00 Atorvastatin 20 Mg Tab PO DAILY [facility] Azelastine HCl 2 spray 05/14/24 21:00 05/14/24 22:43 Azelastine 137mcg/[place] EA NOSTRIL 2 spray BID MARIA T Administration Baclofen 20 mg 05/15/24 09:00 05/14/24 22:26 Baclofen 10 Mg Tab PO 20 mg DAILY MARIA T Administration Baclofen 10 mg 05/14/24 21:00 05/14/24 22:28 Baclofen 10 Mg Tab PO 10 mg HS MARIA T Administration Budesonide/Formoterol Fumarate 2 puff 05/14/24 20:00 05/14/24 20:26 Symbicort 160-4.5 Mcg Inhaler INHALATION 2 puff RT-BID MARIA T Administration Carbidopa/Levodopa 1 each 05/14/24 22:00 05/14/24 19:07 Carbidopa-Levodopa 25-100 Mg 1 Each Tab PO 1 each TID MARIA T Administration Cholecalciferol 100 mcg 05/15/24 09:00 Cholecalciferol 25 Mcg (1000 Iu) Tablet PO DAILY MARIA T Cyanocobalamin 1,000 mcg 05/15/24 09:00 Cyanocobalamin 500 Mcg Tab PO DAILY MARIA T Loratadine 10 mg 05/15/24 09:00 Loratadine 10 Mg Tab PO DAILY MARIA T Losartan Potassium 25 mg 05/14/24 21:00 05/14/24 22:18 Losartan 25 Mg Tab PO 25 mg HS [facility] Administration Melatonin 20 mg 05/14/24 21:00 05/14/24 22:26 Melatonin 5 Mg Tablet PO 20 mg HS [facility] Administration Montelukast Sodium 10 mg 05/14/24 21:00 05/14/24 22:18 Montelukast 10 Mg Tab PO 10 mg HS MARIA T Administration Nitroglycerin 0.4 mg 05/14/24 17:00 Nitroglycerin Sl Tabs 0.4 Mg Tab SUBLINGUAL Q5M PRN Chest Pain Nitroglycerin 1 inch 05/14/24 18:00 05/15/24 05:32 Nitroglycerin Oint 1 Inch/Gm Packet TOPICAL Not Given Q6HR [facility] Pantoprazole Sodium 40 mg 05/15/24 09:00 Pantoprazole 40 Mg Tablet PO DAILY [facility] Tamsulosin HCl 0.4 mg 05/15/24 09:00 Tamsulosin 0.4 Mg Cap.Er.24h PO DAILY [facility] Tiotropium [place] 2 puff 05/14/24 20:00 05/14/24 20:27 Tiotropium 2.5 Mcg Inhaler INHALATION 2 puff RT-HS MARIA T Administration Topiramate 100 mg 05/15/24 09:00 Topiramate 100 Mg Tab PO DAILY [facility] Intake and Output 05/14/24 05/15/24 05/15/24 22:59 06:59 14:59 Other: Weight 81.647 kg 05/14/24 15:17 05/14/24 15:17
--- NOTE | 2024-05-15 17:02 | P.HPIM ---
History of Present Illness H&P Date: 05/14/24 Jose Ash, is a 69-year-old male who presented to [facility] with a chief complaint of chest pain, he was recently admitted with similar symptoms he was evaluated by cardiology and was discharged home he returned to emergency room with a chief complaint of chest pain again. He was evaluated in the emergency room vital examination on presentation revealed a temperature of 97.8 pulse 93 respiration 20 blood pressure 119/79 pulse ox 95% on room air Laboratory data revealed a white blood count of 9.4 hemoglobin 14.8 platelet count 336 BUN 11 creatinine 0.78 troponin 0.012 Testing in the emergency room revealed EKG revealed normal sinus rhythm normal EKG, chest x-ray revealed no acute cardiopulmonary disease Patient was admitted to medical floor for further evaluation and treatment Past Medical History Past Medical History: COPD, Dementia, GERD/Reflux, Hyperlipidemia, Hypertension, Pulmonary Embolus (PE), Sleep Apnea/CPAP/BIPAP Additional Past Medical History / Comment(s): sleep apnea (no machine), kidney stones, frequent migraines, hx of viral hepatitis ., hx of seizures with injections- spouse has a "shot raul device" to use prior . PRIOR PE X3-NOW DISSOLVED-05/2023, kidney stones History of Any Multi-Drug Resistant Organisms: None Reported Past Surgical History: Tonsillectomy Additional Past Surgical History / Comment(s): oral surgery for removal of teeth, KIDNEY STONE REMOVED, Past Anesthesia/Blood Transfusion Reactions: No Reported Reaction Additional Past Anesthesia/Blood Transfusion Reaction / Comment(s): no blood transfusion Past Psychological History: No Psychological Hx Reported Smoking Status: Former smoker Past Alcohol Use History: None Reported Past Drug Use History: None Reported - Past Family History Father Family Medical History: Unable to Obtain Mother Family Medical History: COPD, Hypertension Additional Family Medical History / Comment(s): Cerebral Palsy Medications and Allergies Home Medications Medication Instructions Recorded Confirmed Type Aspirin/Acetaminophen/Caffeine 2 tab PO QID PRN 06/06/17 05/14/24 History [Excedrin Migraine Caplet] Topiramate [Topamax] 100 mg PO DAILY 11/01/18 05/14/24 History Albuterol Sulfate [Albuterol 2 puff INHALATION RT-QID PRN 11/18/22 05/14/24 History Sulfate Hfa] Atorvastatin [Lipitor] 20 mg PO DAILY 11/18/22 05/14/24 History Azelastine HCl [Astepro] 2 spray EA NOSTRIL BID 11/18/22 05/14/24 History Montelukast [Singulair] 10 mg PO HS 11/18/22 05/14/24 History Flaxseed Oil/Forbes-3 1400mg/700mg 1 cap PO HS 05/27/23 05/14/24 History [place] Extract 500 mg PO DAILY 05/27/23 05/14/24 History Albuterol Nebulized [Ventolin 2.5 mg INHALATION RT-QID PRN 10/28/23 05/14/24 History Nebulized] Apixaban [Eliquis] 5 mg PO BID 10/28/23 05/14/24 History Baclofen [Lioresal] 10 mg PO HS 10/28/23 05/14/24 History Loratadine [Claritin] 10 mg PO DAILY 10/28/23 05/14/24 History Losartan [Cozaar] 25 mg PO HS 10/28/23 05/14/24 History Tamsulosin [Flomax] 0.4 mg PO DAILY 10/28/23 05/14/24 History Melatonin 20 mg PO HS 11/30/23 05/14/24 History Lansoprazole 30 mg PO DAILY 03/08/24 05/14/24 History Baclofen [Lioresal] 20 mg PO DAILY 05/07/24 05/14/24 History Carbidopa-Levodopa 25-100 mg 1 tab PO TID 05/07/24 05/14/24 History [Sinemet 25-100 mg] Cholecalciferol (Vitamin D3) 100 mcg PO DAILY 05/07/24 05/14/24 History [Vitamin D3 (50 Mcg = 2000 Iu)] Cyanocobalamin (Vitamin B-12) 1,000 mcg PO DAILY 05/07/24 05/14/24 History [Vitamin B-12] Fluticasone/Umeclidin/Vilanter 1 puff INHALATION RT-HS 05/07/24 05/14/24 History [Trelegy Ellipta 200-62.5-25] Vitamin C/Biotin [Hair, Skin and 2 tab PO DAILY 05/07/24 05/14/24 History Nails Chew] Allergies Allergy/AdvReac Type Severity Reaction Status Date / Time Iodinated Contrast Media Allergy Dyspnea, Verified 05/14/24 17:12 swelling, rash tetracycline Allergy violent, Verified 05/14/24 17:12 mood swings hops AdvReac Severe beer hops Verified 05/14/24 17:12 allergy- severe migraines, nausea hydrocodone [From [place]] AdvReac Nausea & Verified 05/14/24 17:12 Vomiting Physical Exam Vitals: Vital Signs Temp Pulse Resp BP Pulse Ox 05/14/24 13:22 97.8 F 93 20 119/79 95 Intake and Output 05/14/24 05/14/24 05/14/24 06:59 14:59 22:59 Other: Weight 81.647 kg In general patient is alert and oriented x 3 in no distress HEENT head normocephalic and atraumatic Neck is supple no JVD no goiter no lymphadenopathy no carotid bruit Chest examination is clear to auscultation no crackles no wheezing Cardiac exam reveals regular heart sounds S1 and S2 no gallops no murmurs Abdomen is soft nontender no organomegaly with normal bowel sounds Extremity exam reveals no edema no cyanosis or clubbing Neurological examination reveals no gross focal deficits Results CBC & Chem 7: 05/14/24 15:17 05/14/24 15:17 Labs: Abnormal Lab Results - Last 24 Hours (Table) 05/14/24 Range/Units 15:17 Sodium 135 L (137-145) mmol/L Carbon Dioxide 19 L (22-30) mmol/L Glucose 107 H (74-99) mg/dL Assessment and Plan Plan: Episodes of chest pain Previous history of pulmonary embolism maintained on Eliquis Underlying history of COPD Underlying history of hypertension Underlying history of hyperlipidemia Underlying history of benign prostatic hypertrophy Underlying history of Lewy body dementia At this time patient is admitted to telemetry floor Serial EKG and cardiac enzymes were ordered Home medications reviewed and reordered Cardiology consultation was requested Will follow closely
== END 2024-05-15 15:15 | disposition home or self-care (01) ==
LOC: EC 13:01 → 6NMEDSUR 17:02
PROVIDERS: ADMIT Internal Medicine; ATTEND Internal Medicine
DX: R07.89 Other chest pain (principal); I10 Essential (primary) hypertension; J44.9 Chronic obstructive pulmonary disease, unspecified; G31.83 Neurocognitive disorder with Lewy bodies; F02.80 Dementia in other diseases classified elsewhere, unspecified severity, without behavioral disturbance, psychotic disturbance, mood disturbance, and anxiety; I08.1 Rheumatic disorders of both mitral and tricuspid valves; N40.0 Benign prostatic hyperplasia without lower urinary tract symptoms; E78.5 Hyperlipidemia, unspecified; Z79.01 Long term (current) use of anticoagulants; Z79.51 Long term (current) use of inhaled steroids; Z79.899 Other long term (current) drug therapy; Z88.1 Allergy status to other antibiotic agents; Z91.041 Radiographic dye allergy status; Z88.5 Allergy status to narcotic agent; Z91.048 Other nonmedicinal substance allergy status; Z87.891 Personal history of nicotine dependence; Z86.711 Personal history of pulmonary embolism
CPT/HCPCS: 99285; 36415; 94640 ×4; 94760; 93005; 85379; 80061; 80053; 83735; 84484; 85025; 85610; 85730; 71046; G0378 ×2

== ENCOUNTER 2024-09-11 07:44 | Day surgery (SDC) | payer OTHER ==
[2024-09-10 12:20] VITALS: BMI 27.6
[2024-09-11 08:32] VITALS: TEMP 97.7
[2024-09-11] MEDS: LACTATED RINGERS 1,000 ML IV SCH (08:39)
[2024-09-11] MEDS: IV FLUID CONTINUATION 1,000 ML IV ONE ×2 (08:41→09:46)
[2024-09-11] MEDS ORDERED: PROPOFOL 10 MG/ML 20 ML VIAL IV ONE (09:47)
--- NOTE | 2024-09-11 10:08 | P.PCN ---
Date of Procedure: 09/11/24 Procedure(s) Performed: BRIEF HISTORY: Patient is a 69-year-old pleasant white male scheduled for an elective flexible sigmoidoscopy y as a part of follow-up distal rectal polyp was noted on recent colonoscopy February 2024. Biopsy of the colon polyp believe revealed condylomatous with moderate squamous dysplasia. He is scheduled for a follow-up flexible sigmoidoscopy in 6 months PROCEDURE PERFORMED: Flexible sigmoidoscopy with biopsy and snare polypectomy. PREOPERATIVE DIAGNOSIS: Follow-up rectal condylomata with moderate dysplasia noted on colonoscopy in February 2024. IV sedation per Anesthesia. PROCEDURE: After informed consent was obtained, the patient, was brought into the endoscopy unit. IV sedation was administered by Anesthesia under continuous monitoring. Digital rectal examination was normal. Initially the Olympus CF-160 flexible video colonoscope was then inserted in the rectum, gradually advanced into the c splenic flexure without any difficulty. Careful examination was performed as the scope was gradually being withdrawn. Prep was extremely poor. Start irrigation was performed. Mucosa of the descending colon, sigmoid colon, appeared normal. In the distal rectum just proximal to the dentate line there was a 3 to 4 mm flat polyp that was partially removed by snare polypectomy followed by multiple biopsies. Retroflexion was performed in the rectum and small internal hemorrhoids were seen. The patient tolerated the procedure well. IMPRESSION: 3 to 4 mm distal rectal polyp proximal to the dentate line status post snare polypectomy followed by multiple biopsies RECOMMENDATIONS: Findings of this examination were discussed with the patient as well as his family. He was advised to follow with the biopsy results. Based on the biopsy results recommend repeat colonoscopy in 3 years.
[2024-09-11 10:34] VITALS: BP 130/88; PULSE 71; RESP 16
== END 2024-09-11 10:55 | disposition home or self-care (01) ==
LOC: ORWHC2ENDO 07:44
PROVIDERS: ATTEND Internal Medicine Gastroenterology
DX: K62.1 Rectal polyp (principal); K64.8 Other hemorrhoids; M19.90 Unspecified osteoarthritis, unspecified site; E78.5 Hyperlipidemia, unspecified; I10 Essential (primary) hypertension; G47.33 Obstructive sleep apnea (adult) (pediatric); J44.9 Chronic obstructive pulmonary disease, unspecified; G31.83 Neurocognitive disorder with Lewy bodies; K21.9 Gastro-esophageal reflux disease without esophagitis; G20.A1 Parkinson's disease without dyskinesia, without mention of fluctuations; Z87.19 Personal history of other diseases of the digestive system; F02.80 Dementia in other diseases classified elsewhere, unspecified severity, without behavioral disturbance, psychotic disturbance, mood disturbance, and anxiety; Z79.899 Other long term (current) drug therapy; Z90.89 Acquired absence of other organs; Z86.711 Personal history of pulmonary embolism
CPT/HCPCS: 88305; 45331; 45338; J2704